=== PATIENT | male | born 1950 | race Caucasian/White ===

== ENCOUNTER 2022-11-19 11:12 | Inpatient (IN) | payer MEDICARE, MEDICAID ==
[2022-11-19 12:47] LABS: BASOPHILS ABSOLUTE AUTO 0.02 K/mm3 (0.01-0.08); BASOPHILS PERCENT AUTO 0.2 % (0.1-1.2); EOSINOPHILS ABSOLUTE AUTO 0.14 K/mm3 (0.04-0.54); EOSINOPHILS PERCENT AUTO 1.3 (0.8-7.0); HEMATOCRIT 44.6 % (40.1-51.0); HEMOGLOBIN 15.1 gm/dl (13.7-17.5); IMMATURE GRAN ABSOLUTE AUTO 0.03 K/mm3 (0.00-0.10); IMMATURE GRAN PERCENT AUTO 0.3 % (<=1.0); LYMPHOCYTES ABSOLUTE AUTO 1.14 K/mm3 (1.32-3.57); LYMPHOCYTES PERCENT AUTO 10.6 % (21.8-53.1); MEAN CORPUSCULAR HEMOGLOBIN 31.8 pg (25.7-32.2); MEAN CORPUSCULAR HGB CONC 33.9 g/dl (32.2-35.5); MEAN CORPUSCULAR VOLUME 93.9 fl (79.0-92.2); MEAN PLATELET VOLUME 11.1 fl (9.4-12.3); MONOCYTES ABSOLUTE AUTO 0.84 K/mm3 (0.30-0.82); MONOCYTES PERCENT AUTO 7.8 % (5.3-12.2); NEUTROPHILS ABSOLUTE AUTO 8.54 K/mm3 (1.78-5.38); NEUTROPHILS PERCENT AUTO 79.8 % (34.0-67.9); PLATELET COUNT,PLT 295 K/mm3 (163-337); RED BLOOD CELL COUNT 4.75 M/mm3 (4.63-6.08); WHITE BLOOD CELL COUNT,WBC 10.71 K/mm3 (4.23-9.07)
[2022-11-19 13:19] LABS: A/G RATIO 0.9 (1-2); ACETAMINOPHEN 1 ug/mL (10-30); ALANINE AMINOTRANSFERASE,ALT 29 U/L (16-63); ALKALINE PHOSPHATASE 61 U/L (46-116); ANION GAP 13.1 (5-15); ASPARTATE AMNIOTRANSFERASE,AST 16 U/L (15-37); BILIRUBIN TOTAL 0.5 mg/dL (0.2-1.0); BLOOD UREA NITROGEN,BUN 23 mg/dL (7-18); BUN/CREATININE RATIO 15.3 (14-18); CALCIUM 9.1 mg/dL (8.5-10.1); CARBON DIOXIDE,CO2 28 mEq/L (21-32); CHLORIDE,CL 104 mEq/L (98-107); CREATININE 1.5 mg/dL (0.7-1.3); ESTIMATED GFR 49 mL/min (>60); GLUCOSE RANDOM 233 mg/dL (70-99); POTASSIUM,K 3.1 mEq/L (3.5-5.1); PROTEIN TOTAL,TP 6.4 g/dl (6.4-8.2); SODIUM,NA 142 mEq/L (136-145); TSH 0.585 uIU/mL (0.358-3.74)
[2022-11-19 13:31] LABS: BARBITURATE SCREEN,URINE NEGATIVE (CUTOFF=200); BENZODIAZEPINES SCREEN,URINE NEGATIVE (CUTOFF=150); BUPRENORPHINE SCREEN,URINE NEGATIVE (CUTOFF=10); METHADONE SCREEN, URINE NEGATIVE (CUT0FF=200); METHAMPHETAMINES SCREEN, URINE NEGATIVE (CUTOFF=500); OXYCODONE SCREEN,URINE NEGATIVE (CUT0FF=100); PROPOXYPHENE SCREEN,URINE NEGATIVE (CUTOFF=300); THC SCREEN,URINE 20 NG/ML NEGATIVE (CUTOFF=50)
[2022-11-19 13:47] LABS: AMPHETAMINES SCREEN, URINE NEGATIVE (CUTOFF=500)
[2022-11-19] MEDS ORDERED: Potassium Chloride 20 MEQ Tab.ER PO ONE (15:03)
[2022-11-19] MEDS ORDERED: Insulin Regular, Human 100 Units/ML 3 ML Vial SUBCUT STA (15:03)
[2022-11-19] MEDS ORDERED: Cyclobenzaprine 10 MG Tab PO ONE (20:00)
[2022-11-19 20:49] LABS: CORONAVIRUS COVID-19 NAA NEGATIVE (NEGATIVE); INFLUENZA A NAA NEGATIVE (NEGATIVE); RESPIRATORY SYNCYTIAL VIR NAA NEGATIVE (NEGATIVE)
[2022-11-19] MEDS ORDERED: LORazepam 1 MG Tab PO ONE (22:51)
[2022-11-20] MEDS ORDERED: metFORMIN 500 MG Tab PO SCH (07:00)
[2022-11-20] MEDS ORDERED: Metoprolol Tartrate 50 MG Tab PO ONE (08:00)
[2022-11-20] MEDS: amLODIPine 5 MG Tab PO SCH (10:19)
[2022-11-20] MEDS: glipiZIDE 5 MG Tab PO SCH ×2 (10:19→21:30)
[2022-11-20] MEDS: Tamsulosin 0.4 MG Cap.ER PO SCH ×2 (10:20→13:00)
[2022-11-20] MEDS: Furosemide 40 MG Tab PO SCH (10:20)
[2022-11-20] MEDS: Pantoprazole 40 MG Tab.CR PO SCH ×2 (10:22→13:01)
[2022-11-20] MEDS ORDERED: Metoprolol Tartrate 100 MG Tab PO ONE (11:30)
[2022-11-20] MEDS: metFORMIN 500 MG Tab PO SCH ×2 (11:32→17:01)
[2022-11-20] MEDS ORDERED: Orphenadrine 100 MG Tab.ER PO STA (16:45)
[2022-11-20] MEDS: atorvaSTATin 40 MG Tab PO SCH (21:28)
[2022-11-20] MEDS: QUEtiapine 100 MG Tab PO SCH (22:37)
[2022-11-20] MEDS: Topiramate 25 MG Tab PO SCH (22:37)
[2022-11-21] MEDS ORDERED: Acetaminophen 325 MG Tab PO ONE (05:05)
[2022-11-21] MEDS ORDERED: Ondansetron 4 MG Tab.DIS PO ONE (05:59)
[2022-11-21] MEDS: Furosemide 40 MG Tab PO SCH (07:24)
[2022-11-21] MEDS: Pantoprazole 40 MG Tab.CR PO SCH (07:24)
[2022-11-21] MEDS: amLODIPine 5 MG Tab PO SCH (07:24)
[2022-11-21] MEDS: Topiramate 25 MG Tab PO SCH ×2 (07:24→22:12)
[2022-11-21] MEDS: glipiZIDE 5 MG Tab PO SCH ×2 (07:25→22:12)
[2022-11-21] MEDS: metFORMIN 500 MG Tab PO SCH ×2 (07:25→18:03)
[2022-11-21] MEDS: Tamsulosin 0.4 MG Cap.ER PO SCH (10:45)
[2022-11-21] MEDS: QUEtiapine 100 MG Tab PO SCH (22:11)
[2022-11-21] MEDS: atorvaSTATin 40 MG Tab PO SCH (22:12)
[2022-11-22] MEDS: metFORMIN 500 MG Tab PO SCH ×2 (08:36→18:11)
[2022-11-22] MEDS: glipiZIDE 5 MG Tab PO SCH ×2 (08:36→21:14)
[2022-11-22] MEDS: Pantoprazole 40 MG Tab.CR PO SCH (08:37)
[2022-11-22] MEDS: amLODIPine 5 MG Tab PO SCH (08:37)
[2022-11-22] MEDS: Tamsulosin 0.4 MG Cap.ER PO SCH (08:38)
[2022-11-22] MEDS: Topiramate 25 MG Tab PO SCH ×2 (08:38→21:15)
[2022-11-22] MEDS: Furosemide 40 MG Tab PO SCH (08:38)
[2022-11-22] MEDS: QUEtiapine 100 MG Tab PO SCH (21:15)
[2022-11-22] MEDS: atorvaSTATin 40 MG Tab PO SCH (21:15)
[2022-11-23] MEDS: metFORMIN 500 MG Tab PO SCH ×2 (08:26→17:42)
[2022-11-23] MEDS: glipiZIDE 5 MG Tab PO SCH ×2 (08:27→21:09)
[2022-11-23] MEDS: Furosemide 40 MG Tab PO SCH (08:27)
[2022-11-23] MEDS: Pantoprazole 40 MG Tab.CR PO SCH (08:28)
[2022-11-23] MEDS: amLODIPine 5 MG Tab PO SCH (08:29)
[2022-11-23] MEDS: Topiramate 25 MG Tab PO SCH ×2 (08:30→21:09)
[2022-11-23] MEDS: Tamsulosin 0.4 MG Cap.ER PO SCH (09:23)
[2022-11-23] MEDS ORDERED: Acetaminophen 325 MG Tab PO ONE (11:13)
[2022-11-23] MEDS: atorvaSTATin 40 MG Tab PO SCH (21:09)
[2022-11-23] MEDS: QUEtiapine 100 MG Tab PO SCH (21:09)
[2022-11-24] MEDS: metFORMIN 500 MG Tab PO SCH ×3 (07:27→20:24)
[2022-11-24] MEDS: glipiZIDE 5 MG Tab.ER PO SCH ×2 (07:53→20:24)
[2022-11-24] MEDS: atorvaSTATin 40 MG Tab PO SCH (07:53)
[2022-11-24] MEDS: Furosemide 40 MG Tab PO SCH ×2 (07:53)
[2022-11-24] MEDS: Tamsulosin 0.4 MG Cap.ER PO SCH (07:53)
[2022-11-24] MEDS: Metoprolol Tartrate 100 MG Tab PO SCH (07:54)
[2022-11-24] MEDS: amLODIPine 5 MG Tab PO SCH (07:54)
[2022-11-24] MEDS: Pantoprazole 40 MG Tab.CR PO SCH ×2 (07:54)
[2022-11-24] MEDS: Topiramate 25 MG Tab PO SCH ×2 (08:51→20:24)
[2022-11-24] MEDS ORDERED: Acetaminophen 650 MG Supp RECTAL PRN (12:27)
[2022-11-24] MEDS: Insulin Regular, Human 100 Units/ML 3 ML Vial SUBCUT SCH ×2 (13:58→18:16)
[2022-11-24] MEDS: Heparin Sodium 5,000 Units/ML Vial SUBCUT SCH ×2 (14:08→20:24)
[2022-11-24] MEDS: QUEtiapine 100 MG Tab PO SCH (20:24)
[2022-11-24] MEDS: oxyCODONE 5 MG Tab PO PRN (20:24)
[2022-11-25] MEDS: Heparin Sodium 5,000 Units/ML Vial SUBCUT SCH ×3 (05:08→20:12)
[2022-11-25] MEDS: atorvaSTATin 40 MG Tab PO SCH (08:19)
[2022-11-25] MEDS: amLODIPine 5 MG Tab PO SCH (08:19)
[2022-11-25] MEDS: Metoprolol Tartrate 100 MG Tab PO SCH (08:19)
[2022-11-25] MEDS: Furosemide 40 MG Tab PO SCH (08:19)
[2022-11-25] MEDS: metFORMIN 500 MG Tab PO SCH ×2 (08:20→20:30)
[2022-11-25] MEDS: glipiZIDE 5 MG Tab.ER PO SCH ×2 (08:20→20:30)
[2022-11-25] MEDS: Topiramate 25 MG Tab PO SCH ×2 (08:20→20:11)
[2022-11-25] MEDS: Tamsulosin 0.4 MG Cap.ER PO SCH (08:20)
[2022-11-25] MEDS: Pantoprazole 40 MG Tab.CR PO SCH (08:21)
[2022-11-25] MEDS: Insulin Regular, Human 100 Units/ML 3 ML Vial SUBCUT SCH ×3 (08:24→18:00)
[2022-11-25] MEDS: QUEtiapine 100 MG Tab PO SCH (20:11)
[2022-11-26] MEDS: Heparin Sodium 5,000 Units/ML Vial SUBCUT SCH ×3 (05:11→21:29)
[2022-11-26] MEDS: Insulin Regular, Human 100 Units/ML 3 ML Vial SUBCUT SCH ×3 (08:42→18:05)
[2022-11-26] MEDS: Metoprolol Tartrate 100 MG Tab PO SCH (09:35)
[2022-11-26] MEDS: Topiramate 25 MG Tab PO SCH ×2 (09:35→21:28)
[2022-11-26] MEDS: Tamsulosin 0.4 MG Cap.ER PO SCH (09:35)
[2022-11-26] MEDS: glipiZIDE 5 MG Tab.ER PO SCH ×2 (09:36→21:28)
[2022-11-26] MEDS: Pantoprazole 40 MG Tab.CR PO SCH (09:36)
[2022-11-26] MEDS: amLODIPine 5 MG Tab PO SCH (09:36)
[2022-11-26] MEDS: metFORMIN 500 MG Tab PO SCH ×2 (09:36→21:29)
[2022-11-26] MEDS: Furosemide 40 MG Tab PO SCH (09:37)
[2022-11-26] MEDS: atorvaSTATin 40 MG Tab PO SCH (09:37)
[2022-11-26] MEDS: QUEtiapine 100 MG Tab PO SCH (21:27)
[2022-11-27] MEDS: Heparin Sodium 5,000 Units/ML Vial SUBCUT SCH ×3 (05:25→20:05)
[2022-11-27] MEDS: amLODIPine 5 MG Tab PO SCH (09:27)
[2022-11-27] MEDS: glipiZIDE 5 MG Tab.ER PO SCH ×2 (09:27→20:04)
[2022-11-27] MEDS: Metoprolol Tartrate 100 MG Tab PO SCH (09:27)
[2022-11-27] MEDS: metFORMIN 500 MG Tab PO SCH ×2 (09:27→20:04)
[2022-11-27] MEDS: Furosemide 40 MG Tab PO SCH (09:27)
[2022-11-27] MEDS: Topiramate 25 MG Tab PO SCH ×2 (09:28→20:04)
[2022-11-27] MEDS: Pantoprazole 40 MG Tab.CR PO SCH (09:28)
[2022-11-27] MEDS: Insulin Regular, Human 100 Units/ML 3 ML Vial SUBCUT SCH ×3 (09:28→18:17)
[2022-11-27] MEDS: atorvaSTATin 40 MG Tab PO SCH (09:28)
[2022-11-27] MEDS: Tamsulosin 0.4 MG Cap.ER PO SCH (09:28)
[2022-11-27] MEDS ORDERED: Docusate Sodium 100 MG Cap PO PRN (12:53)
[2022-11-27] MEDS: Polyethylene Glycol 3350 Powder 17 GM Packet PO PRN (18:17)
[2022-11-27] MEDS: QUEtiapine 100 MG Tab PO SCH (20:04)
[2022-11-28] MEDS: Heparin Sodium 5,000 Units/ML Vial SUBCUT SCH ×3 (04:15→20:47)
[2022-11-28] MEDS: Topiramate 25 MG Tab PO SCH ×2 (08:42→20:47)
[2022-11-28] MEDS: Polyethylene Glycol 3350 Powder 17 GM Packet PO PRN (08:42)
[2022-11-28] MEDS: metFORMIN 500 MG Tab PO SCH ×2 (08:42→20:47)
[2022-11-28] MEDS: Pantoprazole 40 MG Tab.CR PO SCH (08:43)
[2022-11-28] MEDS: Metoprolol Tartrate 100 MG Tab PO SCH (08:43)
[2022-11-28] MEDS: amLODIPine 5 MG Tab PO SCH (08:43)
[2022-11-28] MEDS: atorvaSTATin 40 MG Tab PO SCH (08:44)
[2022-11-28] MEDS: glipiZIDE 5 MG Tab.ER PO SCH ×2 (08:44→20:47)
[2022-11-28] MEDS: Furosemide 40 MG Tab PO SCH (08:44)
[2022-11-28] MEDS: Tamsulosin 0.4 MG Cap.ER PO SCH (08:45)
[2022-11-28] MEDS: Insulin Regular, Human 100 Units/ML 3 ML Vial SUBCUT SCH ×3 (09:28→19:06)
[2022-11-28] MEDS: QUEtiapine 100 MG Tab PO SCH (20:47)
[2022-11-29] MEDS: Heparin Sodium 5,000 Units/ML Vial SUBCUT SCH ×4 (03:50→20:22)
[2022-11-29] MEDS: oxyCODONE 5 MG Tab PO PRN (08:24)
[2022-11-29] MEDS: glipiZIDE 5 MG Tab.ER PO SCH ×2 (08:24→20:23)
[2022-11-29] MEDS: Tamsulosin 0.4 MG Cap.ER PO SCH (08:25)
[2022-11-29] MEDS: Pantoprazole 40 MG Tab.CR PO SCH (08:25)
[2022-11-29] MEDS: metFORMIN 500 MG Tab PO SCH ×2 (08:25→20:23)
[2022-11-29] MEDS: Furosemide 40 MG Tab PO SCH (08:25)
[2022-11-29] MEDS: Topiramate 25 MG Tab PO SCH ×2 (08:26→20:23)
[2022-11-29] MEDS: Metoprolol Tartrate 100 MG Tab PO SCH (08:26)
[2022-11-29] MEDS: atorvaSTATin 40 MG Tab PO SCH (08:27)
[2022-11-29] MEDS: Insulin Regular, Human 100 Units/ML 3 ML Vial SUBCUT SCH ×3 (08:27→18:50)
[2022-11-29] MEDS: amLODIPine 5 MG Tab PO SCH (08:27)
[2022-11-29] MEDS: QUEtiapine 100 MG Tab PO SCH (20:23)
[2022-11-30] MEDS: Heparin Sodium 5,000 Units/ML Vial SUBCUT SCH ×4 (04:40→20:30)
[2022-11-30] MEDS: Furosemide 40 MG Tab PO SCH (08:29)
[2022-11-30] MEDS: Pantoprazole 40 MG Tab.CR PO SCH (08:29)
[2022-11-30] MEDS: amLODIPine 5 MG Tab PO SCH (08:29)
[2022-11-30] MEDS: Topiramate 25 MG Tab PO SCH ×3 (08:30→20:32)
[2022-11-30] MEDS: glipiZIDE 5 MG Tab.ER PO SCH ×3 (08:30→20:30)
[2022-11-30] MEDS: Metoprolol Tartrate 100 MG Tab PO SCH (08:31)
[2022-11-30] MEDS: metFORMIN 500 MG Tab PO SCH ×3 (08:32→20:30)
[2022-11-30] MEDS: atorvaSTATin 40 MG Tab PO SCH (08:32)
[2022-11-30] MEDS: Insulin Regular, Human 100 Units/ML 3 ML Vial SUBCUT SCH ×3 (08:33→18:00)
[2022-11-30] MEDS: Tamsulosin 0.4 MG Cap.ER PO SCH (08:33)
[2022-11-30] MEDS: QUEtiapine 100 MG Tab PO SCH ×2 (19:47→20:31)
[2022-12-01] MEDS: Heparin Sodium 5,000 Units/ML Vial SUBCUT SCH ×3 (06:30→21:05)
[2022-12-01] MEDS: glipiZIDE 5 MG Tab.ER PO SCH ×2 (08:52→21:05)
[2022-12-01] MEDS: Topiramate 25 MG Tab PO SCH ×2 (08:52→21:20)
[2022-12-01] MEDS: atorvaSTATin 40 MG Tab PO SCH (08:53)
[2022-12-01] MEDS: Tamsulosin 0.4 MG Cap.ER PO SCH (08:53)
[2022-12-01] MEDS: amLODIPine 5 MG Tab PO SCH (08:53)
[2022-12-01] MEDS: Pantoprazole 40 MG Tab.CR PO SCH (08:53)
[2022-12-01] MEDS: metFORMIN 500 MG Tab PO SCH ×2 (08:53→21:04)
[2022-12-01] MEDS: Metoprolol Tartrate 100 MG Tab PO SCH (08:53)
[2022-12-01] MEDS: Furosemide 40 MG Tab PO SCH (08:53)
[2022-12-01] MEDS: Insulin Regular, Human 100 Units/ML 3 ML Vial SUBCUT SCH ×3 (09:02→19:40)
[2022-12-01] MEDS ORDERED: Bisacodyl 10 MG Supp RECTAL PRN (09:47)
[2022-12-01] MEDS: Docusate Sodium 100 MG Cap PO SCH (21:04)
[2022-12-01] MEDS: QUEtiapine 100 MG Tab PO SCH (21:05)
[2022-12-02] MEDS: Heparin Sodium 5,000 Units/ML Vial SUBCUT SCH ×3 (05:41→20:30)
[2022-12-02] MEDS: atorvaSTATin 40 MG Tab PO SCH (09:53)
[2022-12-02] MEDS: Metoprolol Tartrate 100 MG Tab PO SCH (09:53)
[2022-12-02] MEDS: Docusate Sodium 100 MG Cap PO SCH ×2 (09:53→20:30)
[2022-12-02] MEDS: Topiramate 25 MG Tab PO SCH ×2 (09:53→20:30)
[2022-12-02] MEDS: Tamsulosin 0.4 MG Cap.ER PO SCH (09:53)
[2022-12-02] MEDS: amLODIPine 5 MG Tab PO SCH (09:53)
[2022-12-02] MEDS: metFORMIN 500 MG Tab PO SCH ×2 (09:53→20:30)
[2022-12-02] MEDS: glipiZIDE 5 MG Tab.ER PO SCH ×2 (09:54→20:30)
[2022-12-02] MEDS: Furosemide 40 MG Tab PO SCH (09:54)
[2022-12-02] MEDS: Pantoprazole 40 MG Tab.CR PO SCH (09:54)
[2022-12-02] MEDS: Insulin Regular, Human 100 Units/ML 3 ML Vial SUBCUT SCH ×3 (10:19→19:02)
[2022-12-02] MEDS: QUEtiapine 100 MG Tab PO SCH (20:30)
[2022-12-03] MEDS: Heparin Sodium 5,000 Units/ML Vial SUBCUT SCH ×3 (04:37→20:11)
[2022-12-03] MEDS: atorvaSTATin 40 MG Tab PO SCH (08:51)
[2022-12-03] MEDS: metFORMIN 500 MG Tab PO SCH ×2 (08:51→20:12)
[2022-12-03] MEDS: Topiramate 25 MG Tab PO SCH ×2 (08:51→20:12)
[2022-12-03] MEDS: amLODIPine 5 MG Tab PO SCH (08:51)
[2022-12-03] MEDS: Docusate Sodium 100 MG Cap PO SCH ×2 (08:51→20:12)
[2022-12-03] MEDS: Pantoprazole 40 MG Tab.CR PO SCH (08:51)
[2022-12-03] MEDS: Insulin Regular, Human 100 Units/ML 3 ML Vial SUBCUT SCH ×3 (08:52→18:27)
[2022-12-03] MEDS: Furosemide 40 MG Tab PO SCH (08:52)
[2022-12-03] MEDS: glipiZIDE 5 MG Tab.ER PO SCH ×2 (08:52→20:12)
[2022-12-03] MEDS: Metoprolol Tartrate 100 MG Tab PO SCH (08:52)
[2022-12-03] MEDS: Tamsulosin 0.4 MG Cap.ER PO SCH (08:52)
[2022-12-03] MEDS: QUEtiapine 100 MG Tab PO SCH (20:12)
[2022-12-04] MEDS: Heparin Sodium 5,000 Units/ML Vial SUBCUT SCH ×3 (05:27→20:46)
[2022-12-04] MEDS: Insulin Regular, Human 100 Units/ML 3 ML Vial SUBCUT SCH ×3 (08:52→20:12)
[2022-12-04] MEDS: glipiZIDE 5 MG Tab.ER PO SCH ×2 (08:53→20:46)
[2022-12-04] MEDS: Pantoprazole 40 MG Tab.CR PO SCH (08:53)
[2022-12-04] MEDS: atorvaSTATin 40 MG Tab PO SCH (08:53)
[2022-12-04] MEDS: Topiramate 25 MG Tab PO SCH ×2 (08:53→20:45)
[2022-12-04] MEDS: Docusate Sodium 100 MG Cap PO SCH ×2 (08:53→20:46)
[2022-12-04] MEDS: metFORMIN 500 MG Tab PO SCH ×2 (08:54→20:45)
[2022-12-04] MEDS: Furosemide 40 MG Tab PO SCH (08:54)
[2022-12-04] MEDS: Tamsulosin 0.4 MG Cap.ER PO SCH (08:54)
[2022-12-04] MEDS: Metoprolol Tartrate 100 MG Tab PO SCH (08:54)
[2022-12-04] MEDS: amLODIPine 5 MG Tab PO SCH (08:56)
[2022-12-04] MEDS: QUEtiapine 100 MG Tab PO SCH (20:45)
[2022-12-05] MEDS: Heparin Sodium 5,000 Units/ML Vial SUBCUT SCH ×3 (05:30→21:08)
[2022-12-05] MEDS: Topiramate 25 MG Tab PO SCH ×2 (08:00→21:08)
[2022-12-05] MEDS: Tamsulosin 0.4 MG Cap.ER PO SCH (08:00)
[2022-12-05] MEDS: amLODIPine 5 MG Tab PO SCH (08:00)
[2022-12-05] MEDS: Pantoprazole 40 MG Tab.CR PO SCH (08:00)
[2022-12-05] MEDS: atorvaSTATin 40 MG Tab PO SCH (08:01)
[2022-12-05] MEDS: Metoprolol Tartrate 100 MG Tab PO SCH (08:01)
[2022-12-05] MEDS: glipiZIDE 5 MG Tab.ER PO SCH ×2 (08:01→21:08)
[2022-12-05] MEDS: metFORMIN 500 MG Tab PO SCH ×2 (08:01→21:08)
[2022-12-05] MEDS: Furosemide 40 MG Tab PO SCH (08:02)
[2022-12-05] MEDS: Docusate Sodium 100 MG Cap PO SCH ×2 (08:02→21:08)
[2022-12-05] MEDS: Insulin Regular, Human 100 Units/ML 3 ML Vial SUBCUT SCH ×3 (08:03→18:18)
[2022-12-05 09:52] LABS: BASOPHILS ABSOLUTE AUTO 0.03 K/mm3 (0.01-0.08); BASOPHILS PERCENT AUTO 0.3 % (0.1-1.2); EOSINOPHILS ABSOLUTE AUTO 0.14 K/mm3 (0.04-0.54); EOSINOPHILS PERCENT AUTO 1.4 (0.8-7.0); HEMATOCRIT 45.1 % (40.1-51.0); HEMOGLOBIN 14.8 gm/dl (13.7-17.5); IMMATURE GRAN ABSOLUTE AUTO 0.03 K/mm3 (0.00-0.10); IMMATURE GRAN PERCENT AUTO 0.3 % (<=1.0); LYMPHOCYTES ABSOLUTE AUTO 0.99 K/mm3 (1.32-3.57); LYMPHOCYTES PERCENT AUTO 9.6 % (21.8-53.1); MEAN CORPUSCULAR HEMOGLOBIN 31.8 pg (25.7-32.2); MEAN CORPUSCULAR HGB CONC 32.8 g/dl (32.2-35.5); MEAN PLATELET VOLUME 10.6 fl (9.4-12.3); MONOCYTES ABSOLUTE AUTO 0.64 K/mm3 (0.30-0.82); MONOCYTES PERCENT AUTO 6.2 % (5.3-12.2); NEUTROPHILS ABSOLUTE AUTO 8.48 K/mm3 (1.78-5.38); NEUTROPHILS PERCENT AUTO 82.2 % (34.0-67.9); PLATELET COUNT,PLT 348 K/mm3 (163-337); RED BLOOD CELL COUNT 4.65 M/mm3 (4.63-6.08); WHITE BLOOD CELL COUNT,WBC 10.31 K/mm3 (4.23-9.07)
[2022-12-05 10:28] LABS: ANION GAP 13.7 (5-15); BUN/CREATININE RATIO 20.7 (14-18); C-REACTIVE PROTEIN 0.2 mg/dL (<1.0); CALCIUM 9.6 mg/dL (8.5-10.1); CREATININE 1.5 mg/dL (0.7-1.3); EST CRCL DRUG DOSING (CG) 40.39 mL/min; POTASSIUM,K 4.7 mEq/L (3.5-5.1)
[2022-12-05] MEDS: QUEtiapine 100 MG Tab PO SCH (21:08)
[2022-12-06] MEDS: Heparin Sodium 5,000 Units/ML Vial SUBCUT SCH ×3 (05:40→21:11)
[2022-12-06] MEDS: atorvaSTATin 40 MG Tab PO SCH (09:09)
[2022-12-06] MEDS: Tamsulosin 0.4 MG Cap.ER PO SCH (09:10)
[2022-12-06] MEDS: amLODIPine 5 MG Tab PO SCH (09:10)
[2022-12-06] MEDS: Furosemide 40 MG Tab PO SCH (09:10)
[2022-12-06] MEDS: metFORMIN 500 MG Tab PO SCH ×2 (09:10→21:09)
[2022-12-06] MEDS: Topiramate 25 MG Tab PO SCH ×2 (09:10→21:09)
[2022-12-06] MEDS: glipiZIDE 5 MG Tab.ER PO SCH ×2 (09:10→21:08)
[2022-12-06] MEDS: Metoprolol Tartrate 100 MG Tab PO SCH (09:10)
[2022-12-06] MEDS: Pantoprazole 40 MG Tab.CR PO SCH (09:10)
[2022-12-06] MEDS: Docusate Sodium 100 MG Cap PO SCH ×2 (09:11→21:09)
[2022-12-06] MEDS: QUEtiapine 100 MG Tab PO SCH (21:09)
[2022-12-07] MEDS: Heparin Sodium 5,000 Units/ML Vial SUBCUT SCH ×3 (06:09→21:27)
[2022-12-07] MEDS: atorvaSTATin 40 MG Tab PO SCH (08:06)
[2022-12-07] MEDS: Topiramate 25 MG Tab PO SCH ×2 (08:06→21:27)
[2022-12-07] MEDS: Tamsulosin 0.4 MG Cap.ER PO SCH (08:06)
[2022-12-07] MEDS: metFORMIN 500 MG Tab PO SCH ×2 (08:07→21:27)
[2022-12-07] MEDS: Furosemide 40 MG Tab PO SCH (08:07)
[2022-12-07] MEDS: Docusate Sodium 100 MG Cap PO SCH ×2 (08:07→21:26)
[2022-12-07] MEDS: glipiZIDE 5 MG Tab.ER PO SCH ×2 (08:07→21:27)
[2022-12-07] MEDS: Metoprolol Tartrate 100 MG Tab PO SCH (08:08)
[2022-12-07] MEDS: Pantoprazole 40 MG Tab.CR PO SCH (08:08)
[2022-12-07] MEDS: amLODIPine 5 MG Tab PO SCH (08:10)
[2022-12-07] MEDS: QUEtiapine 100 MG Tab PO SCH (21:27)
[2022-12-08] MEDS: Heparin Sodium 5,000 Units/ML Vial SUBCUT SCH ×3 (06:36→20:32)
[2022-12-08] MEDS: Acetaminophen 325 MG Tab PO PRN (09:39)
[2022-12-08] MEDS: Topiramate 25 MG Tab PO SCH ×2 (09:39→20:34)
[2022-12-08] MEDS: amLODIPine 5 MG Tab PO SCH (09:40)
[2022-12-08] MEDS: atorvaSTATin 40 MG Tab PO SCH (09:41)
[2022-12-08] MEDS: Tamsulosin 0.4 MG Cap.ER PO SCH (09:41)
[2022-12-08] MEDS: metFORMIN 500 MG Tab PO SCH ×2 (09:41→20:33)
[2022-12-08] MEDS: Furosemide 40 MG Tab PO SCH (09:42)
[2022-12-08] MEDS: Metoprolol Tartrate 100 MG Tab PO SCH (09:42)
[2022-12-08] MEDS: Docusate Sodium 100 MG Cap PO SCH ×2 (09:42→20:34)
[2022-12-08] MEDS: glipiZIDE 5 MG Tab.ER PO SCH ×2 (09:43→20:34)
[2022-12-08] MEDS: Pantoprazole 40 MG Tab.CR PO SCH (09:43)
[2022-12-08] MEDS: QUEtiapine 100 MG Tab PO SCH (20:33)
[2022-12-09] MEDS: Heparin Sodium 5,000 Units/ML Vial SUBCUT SCH ×3 (04:52→20:21)
[2022-12-09] MEDS: Topiramate 25 MG Tab PO SCH ×2 (09:13→20:22)
[2022-12-09] MEDS: Pantoprazole 40 MG Tab.CR PO SCH (09:13)
[2022-12-09] MEDS: Tamsulosin 0.4 MG Cap.ER PO SCH (09:14)
[2022-12-09] MEDS: amLODIPine 5 MG Tab PO SCH (09:15)
[2022-12-09] MEDS: Metoprolol Tartrate 100 MG Tab PO SCH (09:15)
[2022-12-09] MEDS: Furosemide 40 MG Tab PO SCH (09:15)
[2022-12-09] MEDS: metFORMIN 500 MG Tab PO SCH ×2 (09:16→20:21)
[2022-12-09] MEDS: glipiZIDE 5 MG Tab.ER PO SCH ×2 (09:16→20:22)
[2022-12-09] MEDS: Docusate Sodium 100 MG Cap PO SCH ×2 (09:16→20:21)
[2022-12-09] MEDS: atorvaSTATin 40 MG Tab PO SCH (09:16)
[2022-12-09] MEDS: QUEtiapine 100 MG Tab PO SCH (20:21)
[2022-12-10] MEDS: Heparin Sodium 5,000 Units/ML Vial SUBCUT SCH ×3 (06:25→20:49)
[2022-12-10] MEDS: Topiramate 25 MG Tab PO SCH ×2 (09:28→20:48)
[2022-12-10] MEDS: Tamsulosin 0.4 MG Cap.ER PO SCH (09:28)
[2022-12-10] MEDS: metFORMIN 500 MG Tab PO SCH ×2 (09:28→20:48)
[2022-12-10] MEDS: Furosemide 40 MG Tab PO SCH (09:28)
[2022-12-10] MEDS: Metoprolol Tartrate 100 MG Tab PO SCH (09:29)
[2022-12-10] MEDS: atorvaSTATin 40 MG Tab PO SCH (09:29)
[2022-12-10] MEDS: glipiZIDE 5 MG Tab.ER PO SCH ×2 (09:29→20:48)
[2022-12-10] MEDS: amLODIPine 5 MG Tab PO SCH (09:29)
[2022-12-10] MEDS: Pantoprazole 40 MG Tab.CR PO SCH (09:30)
[2022-12-10] MEDS: Docusate Sodium 100 MG Cap PO SCH ×2 (09:30→20:49)
[2022-12-10] MEDS: QUEtiapine 100 MG Tab PO SCH (20:48)
[2022-12-11] MEDS: Heparin Sodium 5,000 Units/ML Vial SUBCUT SCH ×3 (06:07→20:42)
[2022-12-11] MEDS: Metoprolol Tartrate 100 MG Tab PO SCH (08:27)
[2022-12-11] MEDS: metFORMIN 500 MG Tab PO SCH ×2 (08:27→20:41)
[2022-12-11] MEDS: amLODIPine 5 MG Tab PO SCH (08:28)
[2022-12-11] MEDS: Furosemide 40 MG Tab PO SCH (08:28)
[2022-12-11] MEDS: atorvaSTATin 40 MG Tab PO SCH (08:28)
[2022-12-11] MEDS: Tamsulosin 0.4 MG Cap.ER PO SCH (08:28)
[2022-12-11] MEDS: Pantoprazole 40 MG Tab.CR PO SCH (08:28)
[2022-12-11] MEDS: glipiZIDE 5 MG Tab.ER PO SCH ×2 (08:28→20:41)
[2022-12-11] MEDS: Docusate Sodium 100 MG Cap PO SCH ×2 (08:28→20:42)
[2022-12-11] MEDS: Topiramate 25 MG Tab PO SCH ×2 (08:28→20:41)
[2022-12-11] MEDS: QUEtiapine 100 MG Tab PO SCH (20:42)
[2022-12-12] MEDS: Heparin Sodium 5,000 Units/ML Vial SUBCUT SCH ×3 (06:39→21:25)
[2022-12-12] MEDS: Furosemide 40 MG Tab PO SCH (08:18)
[2022-12-12] MEDS: atorvaSTATin 40 MG Tab PO SCH (08:18)
[2022-12-12] MEDS: metFORMIN 500 MG Tab PO SCH ×2 (08:18→21:25)
[2022-12-12] MEDS: Pantoprazole 40 MG Tab.CR PO SCH (08:19)
[2022-12-12] MEDS: glipiZIDE 5 MG Tab.ER PO SCH ×2 (08:19→21:25)
[2022-12-12] MEDS: Metoprolol Tartrate 100 MG Tab PO SCH (08:19)
[2022-12-12] MEDS: Docusate Sodium 100 MG Cap PO SCH ×2 (08:19→21:24)
[2022-12-12] MEDS: Topiramate 25 MG Tab PO SCH ×2 (08:19→21:25)
[2022-12-12] MEDS: Tamsulosin 0.4 MG Cap.ER PO SCH (08:19)
[2022-12-12] MEDS: amLODIPine 5 MG Tab PO SCH (08:19)
[2022-12-12] MEDS: QUEtiapine 100 MG Tab PO SCH (21:25)
[2022-12-13] MEDS: Heparin Sodium 5,000 Units/ML Vial SUBCUT SCH ×3 (05:48→21:46)
[2022-12-13] MEDS: amLODIPine 5 MG Tab PO SCH (09:40)
[2022-12-13] MEDS: Topiramate 25 MG Tab PO SCH ×2 (09:40→21:45)
[2022-12-13] MEDS: Pantoprazole 40 MG Tab.CR PO SCH (09:40)
[2022-12-13] MEDS: atorvaSTATin 40 MG Tab PO SCH (09:40)
[2022-12-13] MEDS: metFORMIN 500 MG Tab PO SCH ×2 (09:40→21:45)
[2022-12-13] MEDS: Furosemide 40 MG Tab PO SCH (09:40)
[2022-12-13] MEDS: Metoprolol Tartrate 100 MG Tab PO SCH (09:40)
[2022-12-13] MEDS: Tamsulosin 0.4 MG Cap.ER PO SCH (09:40)
[2022-12-13] MEDS: glipiZIDE 5 MG Tab.ER PO SCH ×2 (09:41→21:45)
[2022-12-13] MEDS: Docusate Sodium 100 MG Cap PO SCH ×2 (09:41→21:45)
[2022-12-13] MEDS: QUEtiapine 100 MG Tab PO SCH (21:45)
[2022-12-14] MEDS: Heparin Sodium 5,000 Units/ML Vial SUBCUT SCH ×3 (05:59→20:47)
[2022-12-14] MEDS: Pantoprazole 40 MG Tab.CR PO SCH (09:32)
[2022-12-14] MEDS: glipiZIDE 5 MG Tab.ER PO SCH ×2 (09:32→20:46)
[2022-12-14] MEDS: Tamsulosin 0.4 MG Cap.ER PO SCH (09:32)
[2022-12-14] MEDS: Topiramate 25 MG Tab PO SCH ×2 (09:33→20:45)
[2022-12-14] MEDS: Docusate Sodium 100 MG Cap PO SCH ×2 (09:33→20:44)
[2022-12-14] MEDS: Furosemide 40 MG Tab PO SCH (09:33)
[2022-12-14] MEDS: metFORMIN 500 MG Tab PO SCH ×2 (09:33→20:45)
[2022-12-14] MEDS: atorvaSTATin 40 MG Tab PO SCH (09:33)
[2022-12-14] MEDS: amLODIPine 5 MG Tab PO SCH (09:33)
[2022-12-14] MEDS: Metoprolol Tartrate 100 MG Tab PO SCH (09:33)
[2022-12-14] MEDS: Acetaminophen 325 MG Tab PO PRN (14:30)
[2022-12-14] MEDS: QUEtiapine 100 MG Tab PO SCH (20:44)
[2022-12-15] MEDS: Heparin Sodium 5,000 Units/ML Vial SUBCUT SCH ×3 (05:50→20:53)
[2022-12-15] MEDS: Docusate Sodium 100 MG Cap PO SCH ×2 (08:59→20:54)
[2022-12-15] MEDS: Topiramate 25 MG Tab PO SCH ×2 (08:59→20:54)
[2022-12-15] MEDS: atorvaSTATin 40 MG Tab PO SCH (09:00)
[2022-12-15] MEDS: Furosemide 40 MG Tab PO SCH (09:00)
[2022-12-15] MEDS: glipiZIDE 5 MG Tab.ER PO SCH ×2 (09:00→20:53)
[2022-12-15] MEDS: Pantoprazole 40 MG Tab.CR PO SCH (09:00)
[2022-12-15] MEDS: Metoprolol Tartrate 100 MG Tab PO SCH (09:00)
[2022-12-15] MEDS: amLODIPine 5 MG Tab PO SCH (09:00)
[2022-12-15] MEDS: metFORMIN 500 MG Tab PO SCH ×2 (09:01→20:53)
[2022-12-15] MEDS: Tamsulosin 0.4 MG Cap.ER PO SCH (09:01)
[2022-12-15] MEDS: Acetaminophen 325 MG Tab PO PRN (09:06)
[2022-12-15] MEDS: QUEtiapine 100 MG Tab PO SCH (20:53)
[2022-12-16] MEDS: Heparin Sodium 5,000 Units/ML Vial SUBCUT SCH ×3 (05:43→22:22)
[2022-12-16] MEDS: Acetaminophen 325 MG Tab PO PRN (06:59)
[2022-12-16] MEDS: Tamsulosin 0.4 MG Cap.ER PO SCH (09:17)
[2022-12-16] MEDS: Metoprolol Tartrate 100 MG Tab PO SCH (09:19)
[2022-12-16] MEDS: atorvaSTATin 40 MG Tab PO SCH (09:19)
[2022-12-16] MEDS: Docusate Sodium 100 MG Cap PO SCH ×2 (09:20→22:23)
[2022-12-16] MEDS: amLODIPine 5 MG Tab PO SCH (09:20)
[2022-12-16] MEDS: Topiramate 25 MG Tab PO SCH ×2 (09:20→22:23)
[2022-12-16] MEDS: glipiZIDE 5 MG Tab.ER PO SCH ×2 (09:20→22:22)
[2022-12-16] MEDS: Furosemide 40 MG Tab PO SCH (09:21)
[2022-12-16] MEDS: Pantoprazole 40 MG Tab.CR PO SCH (09:21)
[2022-12-16] MEDS: metFORMIN 500 MG Tab PO SCH ×2 (09:21→22:23)
[2022-12-16] MEDS: QUEtiapine 100 MG Tab PO SCH (22:22)
[2022-12-17] MEDS: Heparin Sodium 5,000 Units/ML Vial SUBCUT SCH ×3 (07:55→20:28)
[2022-12-17] MEDS: Metoprolol Tartrate 100 MG Tab PO SCH (08:45)
[2022-12-17] MEDS: glipiZIDE 5 MG Tab.ER PO SCH ×2 (08:45→20:29)
[2022-12-17] MEDS: Pantoprazole 40 MG Tab.CR PO SCH (08:45)
[2022-12-17] MEDS: Docusate Sodium 100 MG Cap PO SCH ×2 (08:45→20:29)
[2022-12-17] MEDS: Furosemide 40 MG Tab PO SCH (08:45)
[2022-12-17] MEDS: atorvaSTATin 40 MG Tab PO SCH (08:49)
[2022-12-17] MEDS: Topiramate 25 MG Tab PO SCH ×2 (08:49→20:29)
[2022-12-17] MEDS: metFORMIN 500 MG Tab PO SCH ×2 (08:49→20:29)
[2022-12-17] MEDS: amLODIPine 5 MG Tab PO SCH (08:49)
[2022-12-17] MEDS: Tamsulosin 0.4 MG Cap.ER PO SCH (08:49)
[2022-12-17] MEDS: QUEtiapine 100 MG Tab PO SCH (20:29)
[2022-12-18] MEDS: Acetaminophen 325 MG Tab PO PRN ×2 (05:32→20:20)
[2022-12-18] MEDS: Heparin Sodium 5,000 Units/ML Vial SUBCUT SCH ×3 (05:33→20:09)
[2022-12-18] MEDS: Topiramate 25 MG Tab PO SCH ×2 (08:43→20:09)
[2022-12-18] MEDS: atorvaSTATin 40 MG Tab PO SCH (08:43)
[2022-12-18] MEDS: Tamsulosin 0.4 MG Cap.ER PO SCH (08:43)
[2022-12-18] MEDS: amLODIPine 5 MG Tab PO SCH (08:44)
[2022-12-18] MEDS: Furosemide 40 MG Tab PO SCH (08:44)
[2022-12-18] MEDS: Docusate Sodium 100 MG Cap PO SCH ×2 (08:44→20:10)
[2022-12-18] MEDS: Metoprolol Tartrate 100 MG Tab PO SCH (08:44)
[2022-12-18] MEDS: Pantoprazole 40 MG Tab.CR PO SCH (08:44)
[2022-12-18] MEDS: metFORMIN 500 MG Tab PO SCH ×2 (08:44→20:10)
[2022-12-18] MEDS: glipiZIDE 5 MG Tab.ER PO SCH ×2 (08:44→20:10)
[2022-12-18] MEDS: QUEtiapine 100 MG Tab PO SCH (20:10)
[2022-12-19] MEDS: Heparin Sodium 5,000 Units/ML Vial SUBCUT SCH ×3 (05:29→21:01)
[2022-12-19] MEDS: Docusate Sodium 100 MG Cap PO SCH ×2 (10:13→21:01)
[2022-12-19] MEDS: Tamsulosin 0.4 MG Cap.ER PO SCH (10:13)
[2022-12-19] MEDS: Metoprolol Tartrate 100 MG Tab PO SCH (10:13)
[2022-12-19] MEDS: Furosemide 40 MG Tab PO SCH (10:16)
[2022-12-19] MEDS: Pantoprazole 40 MG Tab.CR PO SCH (10:16)
[2022-12-19] MEDS: amLODIPine 5 MG Tab PO SCH (10:16)
[2022-12-19] MEDS: atorvaSTATin 40 MG Tab PO SCH (10:16)
[2022-12-19] MEDS: glipiZIDE 5 MG Tab.ER PO SCH ×2 (10:17→21:01)
[2022-12-19] MEDS: Topiramate 25 MG Tab PO SCH ×2 (10:18→21:02)
[2022-12-19] MEDS: metFORMIN 500 MG Tab PO SCH ×2 (10:24→21:01)
[2022-12-19] MEDS: QUEtiapine 100 MG Tab PO SCH (21:02)
[2022-12-20] MEDS: Heparin Sodium 5,000 Units/ML Vial SUBCUT SCH ×3 (06:40→21:48)
[2022-12-20] MEDS: Docusate Sodium 100 MG Cap PO SCH ×2 (09:37→21:50)
[2022-12-20] MEDS: Topiramate 25 MG Tab PO SCH ×2 (09:37→21:49)
[2022-12-20] MEDS: amLODIPine 5 MG Tab PO SCH (09:37)
[2022-12-20] MEDS: Furosemide 40 MG Tab PO SCH (09:37)
[2022-12-20] MEDS: atorvaSTATin 40 MG Tab PO SCH (09:40)
[2022-12-20] MEDS: Pantoprazole 40 MG Tab.CR PO SCH (09:40)
[2022-12-20] MEDS: Metoprolol Tartrate 100 MG Tab PO SCH (09:40)
[2022-12-20] MEDS: metFORMIN 500 MG Tab PO SCH ×2 (09:40→21:50)
[2022-12-20] MEDS: glipiZIDE 5 MG Tab.ER PO SCH ×2 (09:41→21:50)
[2022-12-20] MEDS: Tamsulosin 0.4 MG Cap.ER PO SCH (09:41)
[2022-12-20] MEDS: QUEtiapine 100 MG Tab PO SCH (21:49)
[2022-12-21] MEDS: Heparin Sodium 5,000 Units/ML Vial SUBCUT SCH ×3 (06:49→21:12)
[2022-12-21] MEDS: glipiZIDE 5 MG Tab.ER PO SCH ×2 (09:49→21:11)
[2022-12-21] MEDS: Topiramate 25 MG Tab PO SCH ×2 (09:49→21:10)
[2022-12-21] MEDS: Docusate Sodium 100 MG Cap PO SCH ×2 (09:49→21:11)
[2022-12-21] MEDS: metFORMIN 500 MG Tab PO SCH ×2 (09:50→21:11)
[2022-12-21] MEDS: atorvaSTATin 40 MG Tab PO SCH (09:50)
[2022-12-21] MEDS: amLODIPine 5 MG Tab PO SCH (09:50)
[2022-12-21] MEDS: Metoprolol Tartrate 100 MG Tab PO SCH (09:50)
[2022-12-21] MEDS: Tamsulosin 0.4 MG Cap.ER PO SCH (09:51)
[2022-12-21] MEDS: Furosemide 40 MG Tab PO SCH (09:51)
[2022-12-21] MEDS: Pantoprazole 40 MG Tab.CR PO SCH (09:52)
[2022-12-21] MEDS: QUEtiapine 100 MG Tab PO SCH (21:11)
[2022-12-22] MEDS: Acetaminophen 325 MG Tab PO PRN ×2 (04:59→09:00)
[2022-12-22] MEDS: Heparin Sodium 5,000 Units/ML Vial SUBCUT SCH ×3 (05:00→20:24)
[2022-12-22] MEDS: glipiZIDE 5 MG Tab.ER PO SCH ×2 (08:58→20:23)
[2022-12-22] MEDS: atorvaSTATin 40 MG Tab PO SCH (08:58)
[2022-12-22] MEDS: Furosemide 40 MG Tab PO SCH (08:58)
[2022-12-22] MEDS: Topiramate 25 MG Tab PO SCH ×2 (08:58→20:23)
[2022-12-22] MEDS: Docusate Sodium 100 MG Cap PO SCH ×2 (08:58→20:24)
[2022-12-22] MEDS: metFORMIN 500 MG Tab PO SCH ×2 (08:58→20:23)
[2022-12-22] MEDS: Tamsulosin 0.4 MG Cap.ER PO SCH (08:58)
[2022-12-22] MEDS: Pantoprazole 40 MG Tab.CR PO SCH (08:59)
[2022-12-22] MEDS: Metoprolol Tartrate 100 MG Tab PO SCH (08:59)
[2022-12-22] MEDS: amLODIPine 5 MG Tab PO SCH (08:59)
[2022-12-22] MEDS: QUEtiapine 100 MG Tab PO SCH (20:23)
[2022-12-23] MEDS: Heparin Sodium 5,000 Units/ML Vial SUBCUT SCH ×3 (05:29→20:43)
[2022-12-23] MEDS: Tamsulosin 0.4 MG Cap.ER PO SCH (09:03)
[2022-12-23] MEDS: atorvaSTATin 40 MG Tab PO SCH (09:03)
[2022-12-23] MEDS: Topiramate 25 MG Tab PO SCH ×2 (09:03→20:44)
[2022-12-23] MEDS: Pantoprazole 40 MG Tab.CR PO SCH (09:04)
[2022-12-23] MEDS: Metoprolol Tartrate 100 MG Tab PO SCH (09:04)
[2022-12-23] MEDS: Docusate Sodium 100 MG Cap PO SCH ×2 (09:04→20:45)
[2022-12-23] MEDS: Furosemide 40 MG Tab PO SCH (09:04)
[2022-12-23] MEDS: glipiZIDE 5 MG Tab.ER PO SCH ×2 (09:05→20:44)
[2022-12-23] MEDS: metFORMIN 500 MG Tab PO SCH ×2 (09:05→20:45)
[2022-12-23] MEDS: amLODIPine 5 MG Tab PO SCH (09:05)
[2022-12-23] MEDS: QUEtiapine 100 MG Tab PO SCH (20:44)
[2022-12-24] MEDS: Acetaminophen 325 MG Tab PO PRN (04:23)
[2022-12-24] MEDS: Heparin Sodium 5,000 Units/ML Vial SUBCUT SCH ×3 (04:25→21:56)
[2022-12-24] MEDS: Topiramate 25 MG Tab PO SCH ×2 (09:27→21:57)
[2022-12-24] MEDS: Tamsulosin 0.4 MG Cap.ER PO SCH (09:27)
[2022-12-24] MEDS: Pantoprazole 40 MG Tab.CR PO SCH (09:27)
[2022-12-24] MEDS: metFORMIN 500 MG Tab PO SCH ×2 (09:27→21:57)
[2022-12-24] MEDS: atorvaSTATin 40 MG Tab PO SCH (09:27)
[2022-12-24] MEDS: amLODIPine 5 MG Tab PO SCH (09:28)
[2022-12-24] MEDS: Docusate Sodium 100 MG Cap PO SCH ×2 (09:28→21:57)
[2022-12-24] MEDS: glipiZIDE 5 MG Tab.ER PO SCH ×2 (09:28→21:57)
[2022-12-24] MEDS: Furosemide 40 MG Tab PO SCH (09:28)
[2022-12-24] MEDS: Metoprolol Tartrate 100 MG Tab PO SCH (09:29)
[2022-12-24 12:26] LABS: APPEARANCE,URINE CLEAR (Clear); BILIRUBIN,URINE NEGATIVE (Negative); COLOR,URINE YELLOW (Yellow); GLUCOSE,URINE NEGATIVE (Negative); KETONES,URINE NEGATIVE (Negative); LEUKOCYTE ESTERASE,URINE NEGATIVE (Negative); NITRITE,URINE NEGATIVE (Negative); OCCULT BLOOD,URINE NEGATIVE (Negative); PROTEIN,URINE NEGATIVE (Negative); UROBILINOGEN,URINE 0.2 (0.2-1.0)
[2022-12-24] MEDS: QUEtiapine 100 MG Tab PO SCH (21:57)
[2022-12-25] MEDS: Acetaminophen 325 MG Tab PO PRN ×2 (01:35→20:44)
[2022-12-25] MEDS: Heparin Sodium 5,000 Units/ML Vial SUBCUT SCH ×3 (05:14→22:00)
[2022-12-25] MEDS: Tamsulosin 0.4 MG Cap.ER PO SCH (09:06)
[2022-12-25] MEDS: atorvaSTATin 40 MG Tab PO SCH (09:06)
[2022-12-25] MEDS: Pantoprazole 40 MG Tab.CR PO SCH (09:07)
[2022-12-25] MEDS: Topiramate 25 MG Tab PO SCH ×2 (09:07→22:00)
[2022-12-25] MEDS: metFORMIN 500 MG Tab PO SCH ×2 (09:07→22:00)
[2022-12-25] MEDS: Furosemide 40 MG Tab PO SCH (09:07)
[2022-12-25] MEDS: glipiZIDE 5 MG Tab.ER PO SCH ×2 (09:07→22:00)
[2022-12-25] MEDS: Docusate Sodium 100 MG Cap PO SCH ×2 (09:07→22:00)
[2022-12-25] MEDS: Metoprolol Tartrate 100 MG Tab PO SCH (09:17)
[2022-12-25] MEDS: amLODIPine 5 MG Tab PO SCH (09:18)
[2022-12-25] MEDS: QUEtiapine 100 MG Tab PO SCH (22:00)
[2022-12-26] MEDS: Heparin Sodium 5,000 Units/ML Vial SUBCUT SCH ×4 (05:21→21:10)
[2022-12-26] MEDS: Topiramate 25 MG Tab PO SCH ×2 (08:29→21:08)
[2022-12-26] MEDS: Docusate Sodium 100 MG Cap PO SCH ×2 (08:29→21:07)
[2022-12-26] MEDS: Tamsulosin 0.4 MG Cap.ER PO SCH (08:29)
[2022-12-26] MEDS: glipiZIDE 5 MG Tab.ER PO SCH ×2 (08:29→21:08)
[2022-12-26] MEDS: atorvaSTATin 40 MG Tab PO SCH (08:29)
[2022-12-26] MEDS: Pantoprazole 40 MG Tab.CR PO SCH (08:29)
[2022-12-26] MEDS: metFORMIN 500 MG Tab PO SCH ×2 (08:29→21:08)
[2022-12-26] MEDS: Furosemide 40 MG Tab PO SCH (08:30)
[2022-12-26] MEDS: Metoprolol Tartrate 100 MG Tab PO SCH (08:33)
[2022-12-26] MEDS: amLODIPine 5 MG Tab PO SCH (08:34)
[2022-12-26] MEDS: QUEtiapine 100 MG Tab PO SCH (21:08)
[2022-12-27] MEDS: Heparin Sodium 5,000 Units/ML Vial SUBCUT SCH ×3 (07:45→20:56)
[2022-12-27] MEDS: glipiZIDE 5 MG Tab.ER PO SCH ×2 (08:00→20:56)
[2022-12-27] MEDS: Topiramate 25 MG Tab PO SCH ×2 (08:01→20:56)
[2022-12-27] MEDS: amLODIPine 5 MG Tab PO SCH (08:01)
[2022-12-27] MEDS: Pantoprazole 40 MG Tab.CR PO SCH (08:01)
[2022-12-27] MEDS: Furosemide 40 MG Tab PO SCH (08:01)
[2022-12-27] MEDS: metFORMIN 500 MG Tab PO SCH ×2 (08:01→20:56)
[2022-12-27] MEDS: Tamsulosin 0.4 MG Cap.ER PO SCH (08:01)
[2022-12-27] MEDS: atorvaSTATin 40 MG Tab PO SCH (08:01)
[2022-12-27] MEDS: Metoprolol Tartrate 100 MG Tab PO SCH (08:01)
[2022-12-27] MEDS: Docusate Sodium 100 MG Cap PO SCH ×2 (08:01→20:56)
[2022-12-27] MEDS: Acetaminophen 325 MG Tab PO PRN ×2 (09:38→18:50)
[2022-12-27] MEDS: QUEtiapine 100 MG Tab PO SCH (20:56)
[2022-12-28] MEDS: Heparin Sodium 5,000 Units/ML Vial SUBCUT SCH ×3 (05:30→21:13)
[2022-12-28] MEDS: Docusate Sodium 100 MG Cap PO SCH ×2 (09:09→21:13)
[2022-12-28] MEDS: Furosemide 40 MG Tab PO SCH (09:09)
[2022-12-28] MEDS: Tamsulosin 0.4 MG Cap.ER PO SCH (09:09)
[2022-12-28] MEDS: atorvaSTATin 40 MG Tab PO SCH (09:10)
[2022-12-28] MEDS: amLODIPine 5 MG Tab PO SCH (09:10)
[2022-12-28] MEDS: Metoprolol Tartrate 100 MG Tab PO SCH (09:10)
[2022-12-28] MEDS: glipiZIDE 5 MG Tab.ER PO SCH ×2 (09:11→21:14)
[2022-12-28] MEDS: metFORMIN 500 MG Tab PO SCH ×2 (09:11→21:13)
[2022-12-28] MEDS: Pantoprazole 40 MG Tab.CR PO SCH (09:11)
[2022-12-28] MEDS: Topiramate 25 MG Tab PO SCH ×2 (09:11→21:14)
[2022-12-28] MEDS: Acetaminophen 325 MG Tab PO PRN (09:21)
[2022-12-28] MEDS: QUEtiapine 100 MG Tab PO SCH (21:14)
[2022-12-29] MEDS: Heparin Sodium 5,000 Units/ML Vial SUBCUT SCH ×3 (05:20→20:38)
[2022-12-29] MEDS: atorvaSTATin 40 MG Tab PO SCH (09:27)
[2022-12-29] MEDS: glipiZIDE 5 MG Tab.ER PO SCH ×2 (09:27→20:39)
[2022-12-29] MEDS: Tamsulosin 0.4 MG Cap.ER PO SCH (09:27)
[2022-12-29] MEDS: amLODIPine 5 MG Tab PO SCH (09:27)
[2022-12-29] MEDS: Pantoprazole 40 MG Tab.CR PO SCH (09:27)
[2022-12-29] MEDS: Furosemide 40 MG Tab PO SCH (09:28)
[2022-12-29] MEDS: Metoprolol Tartrate 100 MG Tab PO SCH (09:28)
[2022-12-29] MEDS: metFORMIN 500 MG Tab PO SCH ×2 (09:28→20:39)
[2022-12-29] MEDS: Topiramate 25 MG Tab PO SCH ×2 (09:28→20:39)
[2022-12-29] MEDS: Docusate Sodium 100 MG Cap PO SCH ×2 (09:28→20:39)
[2022-12-29] MEDS: QUEtiapine 100 MG Tab PO SCH (20:39)
[2022-12-29] MEDS: Acetaminophen 325 MG Tab PO PRN (21:47)
[2022-12-30] MEDS: Heparin Sodium 5,000 Units/ML Vial SUBCUT SCH ×3 (04:14→20:12)
[2022-12-30] MEDS: Acetaminophen 325 MG Tab PO PRN ×2 (04:14→20:23)
[2022-12-30] MEDS: Topiramate 25 MG Tab PO SCH ×2 (09:22→20:13)
[2022-12-30] MEDS: metFORMIN 500 MG Tab PO SCH ×2 (09:22→20:12)
[2022-12-30] MEDS: Pantoprazole 40 MG Tab.CR PO SCH (09:22)
[2022-12-30] MEDS: atorvaSTATin 40 MG Tab PO SCH (09:22)
[2022-12-30] MEDS: Tamsulosin 0.4 MG Cap.ER PO SCH (09:22)
[2022-12-30] MEDS: Docusate Sodium 100 MG Cap PO SCH ×2 (09:23→20:12)
[2022-12-30] MEDS: glipiZIDE 5 MG Tab.ER PO SCH ×2 (09:23→20:12)
[2022-12-30] MEDS: Furosemide 40 MG Tab PO SCH (09:23)
[2022-12-30] MEDS: Metoprolol Tartrate 100 MG Tab PO SCH (09:23)
[2022-12-30] MEDS: amLODIPine 5 MG Tab PO SCH (09:24)
[2022-12-30] MEDS: QUEtiapine 100 MG Tab PO SCH (20:12)
[2022-12-31] MEDS: Heparin Sodium 5,000 Units/ML Vial SUBCUT SCH ×3 (05:55→20:01)
[2022-12-31] MEDS: atorvaSTATin 40 MG Tab PO SCH (09:32)
[2022-12-31] MEDS: glipiZIDE 5 MG Tab.ER PO SCH ×2 (09:32→20:04)
[2022-12-31] MEDS: Docusate Sodium 100 MG Cap PO SCH ×2 (09:32→20:03)
[2022-12-31] MEDS: metFORMIN 500 MG Tab PO SCH ×2 (09:32→20:04)
[2022-12-31] MEDS: Metoprolol Tartrate 100 MG Tab PO SCH (09:33)
[2022-12-31] MEDS: amLODIPine 5 MG Tab PO SCH (09:33)
[2022-12-31] MEDS: Tamsulosin 0.4 MG Cap.ER PO SCH (09:33)
[2022-12-31] MEDS: Furosemide 40 MG Tab PO SCH (09:33)
[2022-12-31] MEDS: Pantoprazole 40 MG Tab.CR PO SCH (09:33)
[2022-12-31] MEDS: Topiramate 25 MG Tab PO SCH ×2 (09:34→20:03)
[2022-12-31] MEDS: QUEtiapine 100 MG Tab PO SCH (20:04)
[2023-01-01] MEDS: Acetaminophen 325 MG Tab PO PRN (05:13)
[2023-01-01] MEDS: Heparin Sodium 5,000 Units/ML Vial SUBCUT SCH ×4 (05:13→20:01)
[2023-01-01] MEDS: metFORMIN 500 MG Tab PO SCH ×3 (08:53→20:01)
[2023-01-01] MEDS: Tamsulosin 0.4 MG Cap.ER PO SCH (08:53)
[2023-01-01] MEDS: Topiramate 25 MG Tab PO SCH ×3 (08:54→20:01)
[2023-01-01] MEDS: Metoprolol Tartrate 100 MG Tab PO SCH (08:54)
[2023-01-01] MEDS: atorvaSTATin 40 MG Tab PO SCH (08:54)
[2023-01-01] MEDS: Pantoprazole 40 MG Tab.CR PO SCH (08:54)
[2023-01-01] MEDS: Furosemide 40 MG Tab PO SCH (08:55)
[2023-01-01] MEDS: glipiZIDE 5 MG Tab.ER PO SCH ×2 (08:55→19:59)
[2023-01-01] MEDS: amLODIPine 5 MG Tab PO SCH (08:55)
[2023-01-01] MEDS: Docusate Sodium 100 MG Cap PO SCH ×3 (08:55→20:01)
[2023-01-01] MEDS: QUEtiapine 100 MG Tab PO SCH ×2 (19:58→20:01)
[2023-01-02] MEDS: Heparin Sodium 5,000 Units/ML Vial SUBCUT SCH ×3 (04:10→21:21)
[2023-01-02] MEDS: Docusate Sodium 100 MG Cap PO SCH ×2 (08:37→21:21)
[2023-01-02] MEDS: metFORMIN 500 MG Tab PO SCH ×2 (08:37→21:22)
[2023-01-02] MEDS: Pantoprazole 40 MG Tab.CR PO SCH (08:37)
[2023-01-02] MEDS: Tamsulosin 0.4 MG Cap.ER PO SCH (08:37)
[2023-01-02] MEDS: glipiZIDE 5 MG Tab.ER PO SCH ×2 (08:37→21:22)
[2023-01-02] MEDS: Furosemide 40 MG Tab PO SCH (08:37)
[2023-01-02] MEDS: atorvaSTATin 40 MG Tab PO SCH (08:37)
[2023-01-02] MEDS: Topiramate 25 MG Tab PO SCH ×2 (08:37→21:21)
[2023-01-02] MEDS: Metoprolol Tartrate 100 MG Tab PO SCH (08:38)
[2023-01-02] MEDS: amLODIPine 5 MG Tab PO SCH (08:39)
[2023-01-02] MEDS: QUEtiapine 100 MG Tab PO SCH (21:22)
[2023-01-02] MEDS: Acetaminophen 325 MG Tab PO PRN (21:23)
[2023-01-03] MEDS: Heparin Sodium 5,000 Units/ML Vial SUBCUT SCH ×3 (06:02→22:02)
[2023-01-03] MEDS: Pantoprazole 40 MG Tab.CR PO SCH (09:54)
[2023-01-03] MEDS: atorvaSTATin 40 MG Tab PO SCH (09:54)
[2023-01-03] MEDS: Docusate Sodium 100 MG Cap PO SCH ×2 (09:54→22:00)
[2023-01-03] MEDS: Furosemide 40 MG Tab PO SCH (09:55)
[2023-01-03] MEDS: Tamsulosin 0.4 MG Cap.ER PO SCH (09:55)
[2023-01-03] MEDS: glipiZIDE 5 MG Tab.ER PO SCH ×2 (09:55→22:02)
[2023-01-03] MEDS: Topiramate 25 MG Tab PO SCH ×2 (09:55→22:01)
[2023-01-03] MEDS: metFORMIN 500 MG Tab PO SCH ×2 (09:55→22:00)
[2023-01-03] MEDS: Metoprolol Tartrate 100 MG Tab PO SCH (09:56)
[2023-01-03] MEDS: amLODIPine 5 MG Tab PO SCH (09:56)
[2023-01-03] MEDS: Acetaminophen 325 MG Tab PO PRN (22:00)
[2023-01-03] MEDS: QUEtiapine 100 MG Tab PO SCH (22:02)
[2023-01-04] MEDS: Heparin Sodium 5,000 Units/ML Vial SUBCUT SCH ×3 (06:28→21:37)
[2023-01-04] MEDS: Topiramate 25 MG Tab PO SCH ×3 (07:18→21:37)
[2023-01-04] MEDS: metFORMIN 500 MG Tab PO SCH ×3 (07:18→21:38)
[2023-01-04] MEDS: Pantoprazole 40 MG Tab.CR PO SCH ×2 (07:18→08:34)
[2023-01-04] MEDS: atorvaSTATin 40 MG Tab PO SCH ×2 (07:19→08:33)
[2023-01-04] MEDS: Docusate Sodium 100 MG Cap PO SCH ×3 (07:20→21:38)
[2023-01-04] MEDS: Metoprolol Tartrate 100 MG Tab PO SCH ×2 (07:20→08:34)
[2023-01-04] MEDS: glipiZIDE 5 MG Tab.ER PO SCH ×3 (07:20→21:38)
[2023-01-04] MEDS: Tamsulosin 0.4 MG Cap.ER PO SCH ×2 (07:20→08:30)
[2023-01-04] MEDS: Furosemide 40 MG Tab PO SCH ×2 (07:21→08:33)
[2023-01-04] MEDS: amLODIPine 5 MG Tab PO SCH ×2 (07:21→08:34)
[2023-01-04] MEDS: Acetaminophen 325 MG Tab PO PRN ×2 (13:06→21:38)
[2023-01-04] MEDS: QUEtiapine 100 MG Tab PO SCH (21:37)
[2023-01-05] MEDS: Heparin Sodium 5,000 Units/ML Vial SUBCUT SCH ×3 (05:16→21:01)
[2023-01-05] MEDS: Acetaminophen 325 MG Tab PO PRN ×2 (05:51→13:09)
[2023-01-05] MEDS: metFORMIN 500 MG Tab PO SCH ×2 (08:32→21:04)
[2023-01-05] MEDS: glipiZIDE 5 MG Tab.ER PO SCH ×2 (08:33→21:04)
[2023-01-05] MEDS: Topiramate 25 MG Tab PO SCH ×2 (08:34→20:58)
[2023-01-05] MEDS: amLODIPine 5 MG Tab PO SCH (08:34)
[2023-01-05] MEDS: atorvaSTATin 40 MG Tab PO SCH (08:34)
[2023-01-05] MEDS: Tamsulosin 0.4 MG Cap.ER PO SCH (08:34)
[2023-01-05] MEDS: Furosemide 40 MG Tab PO SCH (08:34)
[2023-01-05] MEDS: Docusate Sodium 100 MG Cap PO SCH ×2 (08:34→20:59)
[2023-01-05] MEDS: Metoprolol Tartrate 100 MG Tab PO SCH (08:34)
[2023-01-05] MEDS: Pantoprazole 40 MG Tab.CR PO SCH (08:35)
[2023-01-05] MEDS: QUEtiapine 100 MG Tab PO SCH (20:59)
[2023-01-06] MEDS: Heparin Sodium 5,000 Units/ML Vial SUBCUT SCH ×3 (05:50→20:38)
[2023-01-06] MEDS: amLODIPine 5 MG Tab PO SCH (09:34)
[2023-01-06] MEDS: Docusate Sodium 100 MG Cap PO SCH ×2 (09:34→20:37)
[2023-01-06] MEDS: Furosemide 40 MG Tab PO SCH (09:34)
[2023-01-06] MEDS: Topiramate 25 MG Tab PO SCH ×2 (09:35→20:38)
[2023-01-06] MEDS: Metoprolol Tartrate 100 MG Tab PO SCH (09:35)
[2023-01-06] MEDS: metFORMIN 500 MG Tab PO SCH ×2 (09:35→20:37)
[2023-01-06] MEDS: glipiZIDE 5 MG Tab.ER PO SCH ×2 (09:35→20:38)
[2023-01-06] MEDS: atorvaSTATin 40 MG Tab PO SCH (09:35)
[2023-01-06] MEDS: Tamsulosin 0.4 MG Cap.ER PO SCH (09:35)
[2023-01-06] MEDS: Pantoprazole 40 MG Tab.CR PO SCH (09:36)
[2023-01-06] MEDS: Acetaminophen 325 MG Tab PO PRN ×2 (09:42→20:43)
[2023-01-06] MEDS: QUEtiapine 100 MG Tab PO SCH (20:37)
[2023-01-07] MEDS: Heparin Sodium 5,000 Units/ML Vial SUBCUT SCH ×3 (06:10→22:08)
[2023-01-07] MEDS: amLODIPine 5 MG Tab PO SCH (09:07)
[2023-01-07] MEDS: metFORMIN 500 MG Tab PO SCH ×2 (09:08→22:11)
[2023-01-07] MEDS: Docusate Sodium 100 MG Cap PO SCH ×2 (09:08→22:11)
[2023-01-07] MEDS: Furosemide 40 MG Tab PO SCH (09:08)
[2023-01-07] MEDS: Metoprolol Tartrate 100 MG Tab PO SCH (09:08)
[2023-01-07] MEDS: Topiramate 25 MG Tab PO SCH ×2 (09:08→22:10)
[2023-01-07] MEDS: atorvaSTATin 40 MG Tab PO SCH (09:08)
[2023-01-07] MEDS: Pantoprazole 40 MG Tab.CR PO SCH (09:09)
[2023-01-07] MEDS: Tamsulosin 0.4 MG Cap.ER PO SCH (09:09)
[2023-01-07] MEDS: glipiZIDE 5 MG Tab.ER PO SCH ×2 (09:09→22:11)
[2023-01-07] MEDS: QUEtiapine 100 MG Tab PO SCH (22:09)
[2023-01-07] MEDS: Acetaminophen 325 MG Tab PO PRN (22:11)
[2023-01-08] MEDS: Heparin Sodium 5,000 Units/ML Vial SUBCUT SCH ×3 (06:07→20:27)
[2023-01-08] MEDS: Tamsulosin 0.4 MG Cap.ER PO SCH (08:26)
[2023-01-08] MEDS: atorvaSTATin 40 MG Tab PO SCH (08:26)
[2023-01-08] MEDS: Topiramate 25 MG Tab PO SCH ×2 (08:27→20:27)
[2023-01-08] MEDS: Furosemide 40 MG Tab PO SCH (08:27)
[2023-01-08] MEDS: Pantoprazole 40 MG Tab.CR PO SCH (08:27)
[2023-01-08] MEDS: Metoprolol Tartrate 100 MG Tab PO SCH (08:27)
[2023-01-08] MEDS: Docusate Sodium 100 MG Cap PO SCH ×2 (08:27→20:27)
[2023-01-08] MEDS: amLODIPine 5 MG Tab PO SCH (08:28)
[2023-01-08] MEDS: glipiZIDE 5 MG Tab.ER PO SCH ×2 (08:28→20:27)
[2023-01-08] MEDS: metFORMIN 500 MG Tab PO SCH ×2 (08:28→20:27)
[2023-01-08] MEDS: QUEtiapine 100 MG Tab PO SCH (20:27)
[2023-01-08] MEDS: Acetaminophen 325 MG Tab PO PRN (20:27)
[2023-01-08] MEDS: Fluticasone NASAL Spray 16 GM Bottle NASBOTH PRN (20:49)
[2023-01-09] MEDS: Heparin Sodium 5,000 Units/ML Vial SUBCUT SCH ×3 (06:08→22:25)
[2023-01-09] MEDS: atorvaSTATin 40 MG Tab PO SCH (08:18)
[2023-01-09] MEDS: Docusate Sodium 100 MG Cap PO SCH ×2 (08:18→22:25)
[2023-01-09] MEDS: Furosemide 40 MG Tab PO SCH (08:20)
[2023-01-09] MEDS: Metoprolol Tartrate 100 MG Tab PO SCH (08:20)
[2023-01-09] MEDS: Pantoprazole 40 MG Tab.CR PO SCH (08:20)
[2023-01-09] MEDS: Acetaminophen 325 MG Tab PO PRN ×2 (08:21→22:30)
[2023-01-09] MEDS: Tamsulosin 0.4 MG Cap.ER PO SCH (08:22)
[2023-01-09] MEDS: amLODIPine 5 MG Tab PO SCH (08:22)
[2023-01-09] MEDS: glipiZIDE 5 MG Tab.ER PO SCH ×2 (08:22→22:25)
[2023-01-09] MEDS: Topiramate 25 MG Tab PO SCH ×2 (08:23→22:25)
[2023-01-09] MEDS: metFORMIN 500 MG Tab PO SCH ×2 (08:23→22:25)
[2023-01-09] MEDS: QUEtiapine 100 MG Tab PO SCH (22:25)
[2023-01-09] MEDS: Fluticasone NASAL Spray 16 GM Bottle NASBOTH PRN (22:30)
[2023-01-10] MEDS: Heparin Sodium 5,000 Units/ML Vial SUBCUT SCH ×3 (06:16→20:53)
[2023-01-10] MEDS: amLODIPine 5 MG Tab PO SCH (08:21)
[2023-01-10] MEDS: glipiZIDE 5 MG Tab.ER PO SCH ×2 (08:21→20:54)
[2023-01-10] MEDS: Furosemide 40 MG Tab PO SCH (08:21)
[2023-01-10] MEDS: Acetaminophen 325 MG Tab PO PRN (08:22)
[2023-01-10] MEDS: metFORMIN 500 MG Tab PO SCH ×2 (08:22→20:54)
[2023-01-10] MEDS: Docusate Sodium 100 MG Cap PO SCH ×2 (08:22→20:54)
[2023-01-10] MEDS: Tamsulosin 0.4 MG Cap.ER PO SCH (08:23)
[2023-01-10] MEDS: atorvaSTATin 40 MG Tab PO SCH (08:23)
[2023-01-10] MEDS: Pantoprazole 40 MG Tab.CR PO SCH (08:24)
[2023-01-10] MEDS: Metoprolol Tartrate 100 MG Tab PO SCH (08:24)
[2023-01-10] MEDS: Topiramate 25 MG Tab PO SCH ×2 (08:25→20:54)
[2023-01-10] MEDS: QUEtiapine 100 MG Tab PO SCH (20:54)
[2023-01-10] MEDS: Fluticasone NASAL Spray 16 GM Bottle NASBOTH PRN (20:54)
[2023-01-11] MEDS: Heparin Sodium 5,000 Units/ML Vial SUBCUT SCH ×3 (05:08→20:30)
[2023-01-11] MEDS: Acetaminophen 325 MG Tab PO PRN (05:08)
[2023-01-11] MEDS: Topiramate 25 MG Tab PO SCH ×2 (08:26→20:30)
[2023-01-11] MEDS: Tamsulosin 0.4 MG Cap.ER PO SCH (08:27)
[2023-01-11] MEDS: atorvaSTATin 40 MG Tab PO SCH (08:27)
[2023-01-11] MEDS: metFORMIN 500 MG Tab PO SCH ×2 (08:28→20:30)
[2023-01-11] MEDS: Docusate Sodium 100 MG Cap PO SCH ×2 (08:28→20:30)
[2023-01-11] MEDS: glipiZIDE 5 MG Tab.ER PO SCH ×2 (08:28→20:30)
[2023-01-11] MEDS: Pantoprazole 40 MG Tab.CR PO SCH (08:28)
[2023-01-11] MEDS: Furosemide 40 MG Tab PO SCH (08:29)
[2023-01-11] MEDS: amLODIPine 5 MG Tab PO SCH (08:30)
[2023-01-11] MEDS: Metoprolol Tartrate 100 MG Tab PO SCH (08:30)
[2023-01-11] MEDS: QUEtiapine 100 MG Tab PO SCH (20:31)
[2023-01-12] MEDS: Heparin Sodium 5,000 Units/ML Vial SUBCUT SCH ×3 (05:32→21:05)
[2023-01-12] MEDS: Acetaminophen 325 MG Tab PO PRN ×3 (05:35→17:32)
[2023-01-12] MEDS: Pantoprazole 40 MG Tab.CR PO SCH (09:42)
[2023-01-12] MEDS: atorvaSTATin 40 MG Tab PO SCH (09:42)
[2023-01-12] MEDS: amLODIPine 5 MG Tab PO SCH (09:42)
[2023-01-12] MEDS: Tamsulosin 0.4 MG Cap.ER PO SCH (09:42)
[2023-01-12] MEDS: Furosemide 40 MG Tab PO SCH (09:42)
[2023-01-12] MEDS: glipiZIDE 5 MG Tab.ER PO SCH ×2 (09:42→21:05)
[2023-01-12] MEDS: Docusate Sodium 100 MG Cap PO SCH ×2 (09:42→21:05)
[2023-01-12] MEDS: Metoprolol Tartrate 100 MG Tab PO SCH (09:43)
[2023-01-12] MEDS: Topiramate 25 MG Tab PO SCH ×2 (09:43→21:05)
[2023-01-12] MEDS: metFORMIN 500 MG Tab PO SCH ×2 (09:44→21:05)
[2023-01-12] MEDS: QUEtiapine 100 MG Tab PO SCH (21:05)
[2023-01-13] MEDS: Acetaminophen 325 MG Tab PO PRN ×2 (05:18→09:20)
[2023-01-13] MEDS: Heparin Sodium 5,000 Units/ML Vial SUBCUT SCH ×3 (05:18→20:25)
[2023-01-13] MEDS: Docusate Sodium 100 MG Cap PO SCH ×2 (09:13→20:25)
[2023-01-13] MEDS: Furosemide 40 MG Tab PO SCH (09:13)
[2023-01-13] MEDS: amLODIPine 5 MG Tab PO SCH (09:14)
[2023-01-13] MEDS: glipiZIDE 5 MG Tab.ER PO SCH ×2 (09:18→20:26)
[2023-01-13] MEDS: metFORMIN 500 MG Tab PO SCH ×2 (09:18→20:25)
[2023-01-13] MEDS: atorvaSTATin 40 MG Tab PO SCH (09:18)
[2023-01-13] MEDS: Topiramate 25 MG Tab PO SCH ×2 (09:19→20:25)
[2023-01-13] MEDS: Tamsulosin 0.4 MG Cap.ER PO SCH (09:19)
[2023-01-13] MEDS: Metoprolol Tartrate 100 MG Tab PO SCH (09:19)
[2023-01-13] MEDS: Pantoprazole 40 MG Tab.CR PO SCH (09:19)
[2023-01-13] MEDS: Fluticasone NASAL Spray 16 GM Bottle NASBOTH PRN (09:40)
[2023-01-13] MEDS: QUEtiapine 100 MG Tab PO SCH (20:26)
[2023-01-14] MEDS: Heparin Sodium 5,000 Units/ML Vial SUBCUT SCH ×3 (05:29→21:42)
[2023-01-14] MEDS: Acetaminophen 325 MG Tab PO PRN ×3 (05:29→21:48)
[2023-01-14] MEDS: Topiramate 25 MG Tab PO SCH ×2 (08:21→21:28)
[2023-01-14] MEDS: atorvaSTATin 40 MG Tab PO SCH (08:21)
[2023-01-14] MEDS: glipiZIDE 5 MG Tab.ER PO SCH ×2 (08:22→21:40)
[2023-01-14] MEDS: Tamsulosin 0.4 MG Cap.ER PO SCH (08:22)
[2023-01-14] MEDS: Pantoprazole 40 MG Tab.CR PO SCH (08:22)
[2023-01-14] MEDS: Furosemide 40 MG Tab PO SCH (08:22)
[2023-01-14] MEDS: amLODIPine 5 MG Tab PO SCH (08:22)
[2023-01-14] MEDS: Metoprolol Tartrate 100 MG Tab PO SCH (08:23)
[2023-01-14] MEDS: Docusate Sodium 100 MG Cap PO SCH ×2 (08:23→21:40)
[2023-01-14] MEDS: metFORMIN 500 MG Tab PO SCH ×2 (08:23→21:29)
[2023-01-14] MEDS: QUEtiapine 100 MG Tab PO SCH (21:40)
[2023-01-14] MEDS: Fluticasone NASAL Spray 16 GM Bottle NASBOTH PRN (21:47)
[2023-01-15] MEDS: Heparin Sodium 5,000 Units/ML Vial SUBCUT SCH ×3 (05:59→21:29)
[2023-01-15] MEDS: Acetaminophen 325 MG Tab PO PRN (06:00)
[2023-01-15] MEDS: Topiramate 25 MG Tab PO SCH ×2 (08:24→21:30)
[2023-01-15] MEDS: Docusate Sodium 100 MG Cap PO SCH ×2 (08:24→21:30)
[2023-01-15] MEDS: Tamsulosin 0.4 MG Cap.ER PO SCH (08:24)
[2023-01-15] MEDS: Metoprolol Tartrate 100 MG Tab PO SCH (08:24)
[2023-01-15] MEDS: Furosemide 40 MG Tab PO SCH (08:24)
[2023-01-15] MEDS: Pantoprazole 40 MG Tab.CR PO SCH (08:25)
[2023-01-15] MEDS: glipiZIDE 5 MG Tab.ER PO SCH ×2 (08:25→21:30)
[2023-01-15] MEDS: amLODIPine 5 MG Tab PO SCH (08:25)
[2023-01-15] MEDS: metFORMIN 500 MG Tab PO SCH ×2 (08:26→21:31)
[2023-01-15] MEDS: atorvaSTATin 40 MG Tab PO SCH (08:26)
[2023-01-15] MEDS: QUEtiapine 100 MG Tab PO SCH (21:31)
[2023-01-16] MEDS: Heparin Sodium 5,000 Units/ML Vial SUBCUT SCH ×3 (05:50→21:37)
[2023-01-16] MEDS: atorvaSTATin 40 MG Tab PO SCH (08:30)
[2023-01-16] MEDS: Tamsulosin 0.4 MG Cap.ER PO SCH (08:30)
[2023-01-16] MEDS: amLODIPine 5 MG Tab PO SCH (08:31)
[2023-01-16] MEDS: Topiramate 25 MG Tab PO SCH ×2 (08:31→21:39)
[2023-01-16] MEDS: glipiZIDE 5 MG Tab.ER PO SCH ×2 (08:32→21:38)
[2023-01-16] MEDS: Docusate Sodium 100 MG Cap PO SCH ×2 (08:32→21:37)
[2023-01-16] MEDS: metFORMIN 500 MG Tab PO SCH ×2 (08:33→21:37)
[2023-01-16] MEDS: Pantoprazole 40 MG Tab.CR PO SCH (08:33)
[2023-01-16] MEDS: Acetaminophen 325 MG Tab PO PRN ×2 (08:34→21:52)
[2023-01-16] MEDS: Furosemide 40 MG Tab PO SCH (08:34)
[2023-01-16] MEDS: Metoprolol Tartrate 100 MG Tab PO SCH (08:34)
[2023-01-16] MEDS: QUEtiapine 100 MG Tab PO SCH (21:38)
[2023-01-17] MEDS: Heparin Sodium 5,000 Units/ML Vial SUBCUT SCH ×3 (06:05→21:20)
[2023-01-17] MEDS: Acetaminophen 325 MG Tab PO PRN ×2 (06:05→21:21)
[2023-01-17] MEDS: Topiramate 25 MG Tab PO SCH ×2 (09:44→21:19)
[2023-01-17] MEDS: Docusate Sodium 100 MG Cap PO SCH ×2 (09:45→21:22)
[2023-01-17] MEDS: amLODIPine 5 MG Tab PO SCH (09:46)
[2023-01-17] MEDS: Pantoprazole 40 MG Tab.CR PO SCH (09:46)
[2023-01-17] MEDS: Furosemide 40 MG Tab PO SCH (09:46)
[2023-01-17] MEDS: atorvaSTATin 40 MG Tab PO SCH (09:47)
[2023-01-17] MEDS: glipiZIDE 5 MG Tab.ER PO SCH ×2 (09:47→21:21)
[2023-01-17] MEDS: metFORMIN 500 MG Tab PO SCH ×2 (09:47→21:18)
[2023-01-17] MEDS: Metoprolol Tartrate 100 MG Tab PO SCH (09:48)
[2023-01-17] MEDS: Fluticasone NASAL Spray 16 GM Bottle NASBOTH PRN (09:48)
[2023-01-17] MEDS: Tamsulosin 0.4 MG Cap.ER PO SCH (09:48)
[2023-01-17] MEDS: QUEtiapine 100 MG Tab PO SCH (21:19)
[2023-01-18] MEDS: Heparin Sodium 5,000 Units/ML Vial SUBCUT SCH ×3 (06:34→21:02)
[2023-01-18] MEDS: Docusate Sodium 100 MG Cap PO SCH ×2 (10:11→21:05)
[2023-01-18] MEDS: Topiramate 25 MG Tab PO SCH ×2 (10:11→21:02)
[2023-01-18] MEDS: glipiZIDE 5 MG Tab.ER PO SCH ×2 (10:11→21:04)
[2023-01-18] MEDS: atorvaSTATin 40 MG Tab PO SCH (10:12)
[2023-01-18] MEDS: Furosemide 40 MG Tab PO SCH (10:13)
[2023-01-18] MEDS: Tamsulosin 0.4 MG Cap.ER PO SCH (10:13)
[2023-01-18] MEDS: amLODIPine 5 MG Tab PO SCH (10:14)
[2023-01-18] MEDS: Pantoprazole 40 MG Tab.CR PO SCH (10:15)
[2023-01-18] MEDS: Metoprolol Tartrate 100 MG Tab PO SCH (10:16)
[2023-01-18] MEDS: metFORMIN 500 MG Tab PO SCH ×2 (10:16→21:04)
[2023-01-18] MEDS: Acetaminophen 325 MG Tab PO PRN ×2 (10:24→21:03)
[2023-01-18] MEDS: Fluticasone NASAL Spray 16 GM Bottle NASBOTH PRN (10:25)
[2023-01-18] MEDS: QUEtiapine 100 MG Tab PO SCH (21:03)
[2023-01-19] MEDS: Heparin Sodium 5,000 Units/ML Vial SUBCUT SCH ×3 (06:14→20:48)
[2023-01-19] MEDS: Topiramate 25 MG Tab PO SCH ×2 (08:15→20:45)
[2023-01-19] MEDS: glipiZIDE 5 MG Tab.ER PO SCH ×2 (08:15→20:44)
[2023-01-19] MEDS: Docusate Sodium 100 MG Cap PO SCH ×2 (08:17→20:44)
[2023-01-19] MEDS: Tamsulosin 0.4 MG Cap.ER PO SCH (08:17)
[2023-01-19] MEDS: amLODIPine 5 MG Tab PO SCH (08:17)
[2023-01-19] MEDS: atorvaSTATin 40 MG Tab PO SCH (08:18)
[2023-01-19] MEDS: metFORMIN 500 MG Tab PO SCH ×2 (08:18→20:45)
[2023-01-19] MEDS: Metoprolol Tartrate 100 MG Tab PO SCH (08:19)
[2023-01-19] MEDS: Pantoprazole 40 MG Tab.CR PO SCH (08:20)
[2023-01-19] MEDS: Furosemide 40 MG Tab PO SCH (08:20)
[2023-01-19] MEDS: QUEtiapine 100 MG Tab PO SCH (20:45)
[2023-01-19] MEDS: Acetaminophen 325 MG Tab PO PRN (20:55)
[2023-01-19] MEDS: Fluticasone NASAL Spray 16 GM Bottle NASBOTH PRN (20:56)
[2023-01-20] MEDS: Metoprolol Tartrate 100 MG Tab PO SCH (08:58)
[2023-01-20] MEDS: Docusate Sodium 100 MG Cap PO SCH ×2 (08:58→20:27)
[2023-01-20] MEDS: Tamsulosin 0.4 MG Cap.ER PO SCH (08:58)
[2023-01-20] MEDS: atorvaSTATin 40 MG Tab PO SCH (08:58)
[2023-01-20] MEDS: Pantoprazole 40 MG Tab.CR PO SCH (08:58)
[2023-01-20] MEDS: metFORMIN 500 MG Tab PO SCH ×2 (08:59→20:28)
[2023-01-20] MEDS: amLODIPine 5 MG Tab PO SCH (08:59)
[2023-01-20] MEDS: Furosemide 40 MG Tab PO SCH (08:59)
[2023-01-20] MEDS: glipiZIDE 5 MG Tab.ER PO SCH ×2 (08:59→20:28)
[2023-01-20] MEDS: Topiramate 25 MG Tab PO SCH ×2 (08:59→20:30)
[2023-01-20] MEDS: Heparin Sodium 5,000 Units/ML Vial SUBCUT SCH ×3 (13:33→20:31)
[2023-01-20] MEDS: QUEtiapine 100 MG Tab PO SCH (20:29)
[2023-01-20] MEDS: Acetaminophen 325 MG Tab PO PRN (20:47)
[2023-01-20] MEDS: Fluticasone NASAL Spray 16 GM Bottle NASBOTH PRN (20:48)
[2023-01-21] MEDS: Heparin Sodium 5,000 Units/ML Vial SUBCUT SCH ×3 (06:19→20:24)
[2023-01-21] MEDS: Topiramate 25 MG Tab PO SCH ×2 (09:40→20:25)
[2023-01-21] MEDS: Tamsulosin 0.4 MG Cap.ER PO SCH (09:41)
[2023-01-21] MEDS: metFORMIN 500 MG Tab PO SCH ×2 (09:42→20:23)
[2023-01-21] MEDS: atorvaSTATin 40 MG Tab PO SCH (09:42)
[2023-01-21] MEDS: Furosemide 40 MG Tab PO SCH (09:43)
[2023-01-21] MEDS: Metoprolol Tartrate 100 MG Tab PO SCH (09:43)
[2023-01-21] MEDS: amLODIPine 5 MG Tab PO SCH (09:43)
[2023-01-21] MEDS: Pantoprazole 40 MG Tab.CR PO SCH (09:44)
[2023-01-21] MEDS: Docusate Sodium 100 MG Cap PO SCH ×2 (09:44→20:23)
[2023-01-21] MEDS: glipiZIDE 5 MG Tab.ER PO SCH ×2 (09:45→20:24)
[2023-01-21] MEDS: Fluticasone NASAL Spray 16 GM Bottle NASBOTH PRN ×2 (09:55→20:35)
[2023-01-21] MEDS: Acetaminophen 325 MG Tab PO PRN ×2 (09:56→20:34)
[2023-01-21] MEDS: QUEtiapine 100 MG Tab PO SCH (20:25)
[2023-01-22] MEDS: Heparin Sodium 5,000 Units/ML Vial SUBCUT SCH ×3 (05:23→20:12)
[2023-01-22] MEDS: Metoprolol Tartrate 100 MG Tab PO SCH (10:27)
[2023-01-22] MEDS: Tamsulosin 0.4 MG Cap.ER PO SCH (10:27)
[2023-01-22] MEDS: Furosemide 40 MG Tab PO SCH (10:28)
[2023-01-22] MEDS: Pantoprazole 40 MG Tab.CR PO SCH (10:28)
[2023-01-22] MEDS: metFORMIN 500 MG Tab PO SCH ×2 (10:28→20:12)
[2023-01-22] MEDS: atorvaSTATin 40 MG Tab PO SCH (10:29)
[2023-01-22] MEDS: amLODIPine 5 MG Tab PO SCH (10:29)
[2023-01-22] MEDS: Docusate Sodium 100 MG Cap PO SCH ×2 (10:29→20:11)
[2023-01-22] MEDS: glipiZIDE 5 MG Tab.ER PO SCH ×2 (10:29→20:12)
[2023-01-22] MEDS: Topiramate 25 MG Tab PO SCH ×2 (10:30→20:13)
[2023-01-22] MEDS: QUEtiapine 100 MG Tab PO SCH (20:12)
[2023-01-22] MEDS: Acetaminophen 325 MG Tab PO PRN (20:13)
[2023-01-22] MEDS: Fluticasone NASAL Spray 16 GM Bottle NASBOTH PRN (20:14)
[2023-01-23] MEDS: Heparin Sodium 5,000 Units/ML Vial SUBCUT SCH ×3 (05:51→22:39)
[2023-01-23] MEDS: Metoprolol Tartrate 100 MG Tab PO SCH (09:30)
[2023-01-23] MEDS: Topiramate 25 MG Tab PO SCH ×2 (09:30→22:40)
[2023-01-23] MEDS: Docusate Sodium 100 MG Cap PO SCH ×2 (09:31→22:40)
[2023-01-23] MEDS: metFORMIN 500 MG Tab PO SCH ×2 (09:31→22:41)
[2023-01-23] MEDS: Pantoprazole 40 MG Tab.CR PO SCH (09:31)
[2023-01-23] MEDS: amLODIPine 5 MG Tab PO SCH (09:31)
[2023-01-23] MEDS: Furosemide 40 MG Tab PO SCH (09:31)
[2023-01-23] MEDS: atorvaSTATin 40 MG Tab PO SCH (09:32)
[2023-01-23] MEDS: glipiZIDE 5 MG Tab.ER PO SCH ×2 (09:32→22:41)
[2023-01-23] MEDS: Tamsulosin 0.4 MG Cap.ER PO SCH (09:32)
[2023-01-23] MEDS: Acetaminophen 325 MG Tab PO PRN (09:38)
[2023-01-23] MEDS: QUEtiapine 100 MG Tab PO SCH (22:39)
[2023-01-23] MEDS: Fluticasone NASAL Spray 16 GM Bottle NASBOTH PRN (23:03)
[2023-01-24] MEDS: Heparin Sodium 5,000 Units/ML Vial SUBCUT SCH ×3 (05:21→20:48)
[2023-01-24] MEDS: Acetaminophen 325 MG Tab PO PRN ×3 (05:23→20:54)
[2023-01-24] MEDS: atorvaSTATin 40 MG Tab PO SCH (10:05)
[2023-01-24] MEDS: glipiZIDE 5 MG Tab.ER PO SCH ×2 (10:08→20:49)
[2023-01-24] MEDS: amLODIPine 5 MG Tab PO SCH (10:09)
[2023-01-24] MEDS: Pantoprazole 40 MG Tab.CR PO SCH (10:12)
[2023-01-24] MEDS: Docusate Sodium 100 MG Cap PO SCH ×2 (10:12→20:49)
[2023-01-24] MEDS: Metoprolol Tartrate 100 MG Tab PO SCH (10:12)
[2023-01-24] MEDS: Topiramate 25 MG Tab PO SCH ×2 (10:13→20:48)
[2023-01-24] MEDS: Tamsulosin 0.4 MG Cap.ER PO SCH (10:13)
[2023-01-24] MEDS: Furosemide 40 MG Tab PO SCH (10:13)
[2023-01-24] MEDS: metFORMIN 500 MG Tab PO SCH ×2 (10:14→20:48)
[2023-01-24] MEDS: Fluticasone NASAL Spray 16 GM Bottle NASBOTH PRN ×2 (10:26→20:50)
[2023-01-24] MEDS: QUEtiapine 100 MG Tab PO SCH (20:49)
[2023-01-25] MEDS: Heparin Sodium 5,000 Units/ML Vial SUBCUT SCH ×3 (04:37→20:31)
[2023-01-25] MEDS: atorvaSTATin 40 MG Tab PO SCH (09:49)
[2023-01-25] MEDS: Tamsulosin 0.4 MG Cap.ER PO SCH (09:50)
[2023-01-25] MEDS: Pantoprazole 40 MG Tab.CR PO SCH (09:51)
[2023-01-25] MEDS: Acetaminophen 325 MG Tab PO PRN ×2 (10:00→20:33)
[2023-01-25] MEDS: Metoprolol Tartrate 100 MG Tab PO SCH (10:00)
[2023-01-25] MEDS: metFORMIN 500 MG Tab PO SCH ×2 (10:01→20:33)
[2023-01-25] MEDS: Furosemide 40 MG Tab PO SCH (10:01)
[2023-01-25] MEDS: amLODIPine 5 MG Tab PO SCH (10:01)
[2023-01-25] MEDS: Fluticasone NASAL Spray 16 GM Bottle NASBOTH PRN (10:02)
[2023-01-25] MEDS: glipiZIDE 5 MG Tab.ER PO SCH ×2 (10:02→20:33)
[2023-01-25] MEDS: Topiramate 25 MG Tab PO SCH ×2 (10:02→20:32)
[2023-01-25] MEDS: Docusate Sodium 100 MG Cap PO SCH ×2 (10:11→20:32)
[2023-01-25] MEDS: QUEtiapine 100 MG Tab PO SCH (20:32)
[2023-01-26] MEDS: Heparin Sodium 5,000 Units/ML Vial SUBCUT SCH ×5 (03:55→20:04)
[2023-01-26] MEDS: Acetaminophen 325 MG Tab PO PRN ×2 (09:40→19:41)
[2023-01-26] MEDS: Fluticasone NASAL Spray 16 GM Bottle NASBOTH PRN (09:40)
[2023-01-26] MEDS: atorvaSTATin 40 MG Tab PO SCH (09:41)
[2023-01-26] MEDS: glipiZIDE 5 MG Tab.ER PO SCH ×3 (09:41→20:04)
[2023-01-26] MEDS: metFORMIN 500 MG Tab PO SCH ×3 (09:41→20:03)
[2023-01-26] MEDS: Pantoprazole 40 MG Tab.CR PO SCH (09:41)
[2023-01-26] MEDS: Metoprolol Tartrate 100 MG Tab PO SCH (09:45)
[2023-01-26] MEDS: Docusate Sodium 100 MG Cap PO SCH ×2 (09:45→20:02)
[2023-01-26] MEDS: Furosemide 40 MG Tab PO SCH (09:45)
[2023-01-26] MEDS: Tamsulosin 0.4 MG Cap.ER PO SCH (09:45)
[2023-01-26] MEDS: Topiramate 25 MG Tab PO SCH ×3 (09:45→20:05)
[2023-01-26] MEDS: amLODIPine 5 MG Tab PO SCH (09:45)
[2023-01-26] MEDS: QUEtiapine 100 MG Tab PO SCH ×2 (19:41→20:05)
[2023-01-27] MEDS: Heparin Sodium 5,000 Units/ML Vial SUBCUT SCH ×3 (05:19→21:38)
[2023-01-27] MEDS: Tamsulosin 0.4 MG Cap.ER PO SCH (08:48)
[2023-01-27] MEDS: metFORMIN 500 MG Tab PO SCH ×2 (08:51→21:40)
[2023-01-27] MEDS: glipiZIDE 5 MG Tab.ER PO SCH ×2 (08:51→21:40)
[2023-01-27] MEDS: Pantoprazole 40 MG Tab.CR PO SCH (08:51)
[2023-01-27] MEDS: amLODIPine 5 MG Tab PO SCH (08:52)
[2023-01-27] MEDS: Furosemide 40 MG Tab PO SCH (08:52)
[2023-01-27] MEDS: Topiramate 25 MG Tab PO SCH ×2 (08:52→21:41)
[2023-01-27] MEDS: Metoprolol Tartrate 100 MG Tab PO SCH (08:53)
[2023-01-27] MEDS: atorvaSTATin 40 MG Tab PO SCH (08:53)
[2023-01-27] MEDS: Docusate Sodium 100 MG Cap PO SCH ×2 (08:56→21:41)
[2023-01-27] MEDS: QUEtiapine 100 MG Tab PO SCH (21:39)
[2023-01-27] MEDS: Fluticasone NASAL Spray 16 GM Bottle NASBOTH PRN (21:41)
[2023-01-27] MEDS: Acetaminophen 325 MG Tab PO PRN (22:08)
[2023-01-28] MEDS: Heparin Sodium 5,000 Units/ML Vial SUBCUT SCH ×3 (05:41→21:51)
[2023-01-28] MEDS: atorvaSTATin 40 MG Tab PO SCH (08:59)
[2023-01-28] MEDS: amLODIPine 5 MG Tab PO SCH (08:59)
[2023-01-28] MEDS: Topiramate 25 MG Tab PO SCH ×2 (08:59→21:50)
[2023-01-28] MEDS: Tamsulosin 0.4 MG Cap.ER PO SCH (08:59)
[2023-01-28] MEDS: Pantoprazole 40 MG Tab.CR PO SCH (09:00)
[2023-01-28] MEDS: Furosemide 40 MG Tab PO SCH (09:00)
[2023-01-28] MEDS: Metoprolol Tartrate 100 MG Tab PO SCH (09:00)
[2023-01-28] MEDS: glipiZIDE 5 MG Tab.ER PO SCH ×2 (09:03→21:51)
[2023-01-28] MEDS: metFORMIN 500 MG Tab PO SCH ×2 (09:03→21:51)
[2023-01-28] MEDS: Docusate Sodium 100 MG Cap PO SCH ×3 (09:04→22:02)
[2023-01-28] MEDS: QUEtiapine 100 MG Tab PO SCH (21:50)
[2023-01-28] MEDS: Acetaminophen 325 MG Tab PO PRN (21:50)
[2023-01-28] MEDS: Fluticasone NASAL Spray 16 GM Bottle NASBOTH PRN (21:53)
[2023-01-29] MEDS: Heparin Sodium 5,000 Units/ML Vial SUBCUT SCH ×3 (06:29→21:06)
[2023-01-29] MEDS: metFORMIN 500 MG Tab PO SCH ×2 (09:29→21:11)
[2023-01-29] MEDS: glipiZIDE 5 MG Tab.ER PO SCH ×2 (09:30→21:10)
[2023-01-29] MEDS: atorvaSTATin 40 MG Tab PO SCH (09:30)
[2023-01-29] MEDS: Topiramate 100 MG Tab PO SCH ×2 (09:31→21:04)
[2023-01-29] MEDS: amLODIPine 5 MG Tab PO SCH (09:31)
[2023-01-29] MEDS: Tamsulosin 0.4 MG Cap.ER PO SCH (09:31)
[2023-01-29] MEDS: Pantoprazole 40 MG Tab.CR PO SCH (09:31)
[2023-01-29] MEDS: Furosemide 40 MG Tab PO SCH (09:32)
[2023-01-29] MEDS: Acetaminophen 325 MG Tab PO PRN ×2 (09:32→21:04)
[2023-01-29] MEDS: Metoprolol Tartrate 100 MG Tab PO SCH (09:32)
[2023-01-29] MEDS: Docusate Sodium 100 MG Cap PO SCH ×2 (09:35→21:05)
[2023-01-29] MEDS: QUEtiapine 100 MG Tab PO SCH (21:04)
[2023-01-29] MEDS: Fluticasone NASAL Spray 16 GM Bottle NASBOTH PRN (21:25)
[2023-01-30] MEDS: Docusate Sodium 100 MG Cap PO SCH ×3 (01:39→22:33)
[2023-01-30] MEDS: Heparin Sodium 5,000 Units/ML Vial SUBCUT SCH ×3 (04:38→22:36)
[2023-01-30] MEDS: Furosemide 40 MG Tab PO SCH (10:10)
[2023-01-30] MEDS: atorvaSTATin 40 MG Tab PO SCH (10:11)
[2023-01-30] MEDS: Pantoprazole 40 MG Tab.CR PO SCH (10:11)
[2023-01-30] MEDS: Metoprolol Tartrate 100 MG Tab PO SCH (10:11)
[2023-01-30] MEDS: Tamsulosin 0.4 MG Cap.ER PO SCH (10:11)
[2023-01-30] MEDS: glipiZIDE 5 MG Tab.ER PO SCH ×2 (10:12→22:35)
[2023-01-30] MEDS: Topiramate 100 MG Tab PO SCH ×2 (10:13→22:34)
[2023-01-30] MEDS: metFORMIN 500 MG Tab PO SCH ×2 (10:13→22:35)
[2023-01-30] MEDS: amLODIPine 5 MG Tab PO SCH (10:13)
[2023-01-30] MEDS: Acetaminophen 325 MG Tab PO PRN ×2 (10:26→22:33)
[2023-01-30] MEDS: Fluticasone NASAL Spray 16 GM Bottle NASBOTH PRN (10:26)
[2023-01-30] MEDS ORDERED: Nitroglycerin 0.4 MG Tab.SL SL ONE ×2 (11:20→13:29)
[2023-01-30 11:48] LABS: BASOPHILS ABSOLUTE AUTO 0.01 K/mm3 (0.01-0.08); BASOPHILS PERCENT AUTO 0.1 % (0.1-1.2); EOSINOPHILS ABSOLUTE AUTO 0.19 K/mm3 (0.04-0.54); HEMATOCRIT 43.2 % (40.1-51.0); HEMOGLOBIN 14.2 gm/dl (13.7-17.5); IMMATURE GRAN ABSOLUTE AUTO 0.03 K/mm3 (0.00-0.10); IMMATURE GRAN PERCENT AUTO 0.3 % (<=1.0); LYMPHOCYTES ABSOLUTE AUTO 1.07 K/mm3 (1.32-3.57); LYMPHOCYTES PERCENT AUTO 11.5 % (21.8-53.1); MEAN CORPUSCULAR HEMOGLOBIN 32.1 pg (25.7-32.2); MEAN CORPUSCULAR HGB CONC 32.9 g/dl (32.2-35.5); MEAN CORPUSCULAR VOLUME 97.7 fl (79.0-92.2); MEAN PLATELET VOLUME 10.8 fl (9.4-12.3); MONOCYTES ABSOLUTE AUTO 0.53 K/mm3 (0.30-0.82); MONOCYTES PERCENT AUTO 5.7 % (5.3-12.2); NEUTROPHILS ABSOLUTE AUTO 7.49 K/mm3 (1.78-5.38); NEUTROPHILS PERCENT AUTO 80.4 % (34.0-67.9); PLATELET COUNT,PLT 278 K/mm3 (163-337); RED BLOOD CELL COUNT 4.42 M/mm3 (4.63-6.08); WHITE BLOOD CELL COUNT,WBC 9.32 K/mm3 (4.23-9.07)
[2023-01-30 12:12] LABS: A/G RATIO 1.1 (1-2); ALBUMIN 3.2 g/dl (3.4-5.0); ANION GAP 14.1 (5-15); BILIRUBIN TOTAL 0.2 mg/dL (0.2-1.0); BUN/CREATININE RATIO 24.6 (14-18); CALCIUM 9.3 mg/dL (8.5-10.1); CREATININE 1.3 mg/dL (0.7-1.3); EST CRCL DRUG DOSING (CG) 46.61 mL/min; POTASSIUM,K 4.1 mEq/L (3.5-5.1); PROTEIN TOTAL,TP 6.2 g/dl (6.4-8.2)
[2023-01-30] MEDS ORDERED: LORazepam 0.5 MG Tab PO ONE (13:38)
[2023-01-30] MEDS: QUEtiapine 100 MG Tab PO SCH (22:35)
[2023-01-31] MEDS: Heparin Sodium 5,000 Units/ML Vial SUBCUT SCH ×3 (06:42→20:50)
[2023-01-31] MEDS: atorvaSTATin 40 MG Tab PO SCH (09:28)
[2023-01-31] MEDS: Tamsulosin 0.4 MG Cap.ER PO SCH (09:28)
[2023-01-31] MEDS: Metoprolol Tartrate 100 MG Tab PO SCH (09:28)
[2023-01-31] MEDS: Pantoprazole 40 MG Tab.CR PO SCH (09:29)
[2023-01-31] MEDS: Acetaminophen 325 MG Tab PO PRN ×2 (09:29→20:50)
[2023-01-31] MEDS: Topiramate 100 MG Tab PO SCH ×2 (09:30→20:49)
[2023-01-31] MEDS: metFORMIN 500 MG Tab PO SCH ×2 (09:30→20:49)
[2023-01-31] MEDS: glipiZIDE 5 MG Tab.ER PO SCH ×2 (09:30→20:48)
[2023-01-31] MEDS: Furosemide 40 MG Tab PO SCH (09:31)
[2023-01-31] MEDS: amLODIPine 5 MG Tab PO SCH (09:31)
[2023-01-31] MEDS: Fluticasone NASAL Spray 16 GM Bottle NASBOTH PRN (09:31)
[2023-01-31] MEDS: Docusate Sodium 100 MG Cap PO SCH ×2 (09:31→20:50)
[2023-01-31] MEDS: QUEtiapine 100 MG Tab PO SCH (20:48)
[2023-02-01] MEDS: Heparin Sodium 5,000 Units/ML Vial SUBCUT SCH ×3 (07:03→20:50)
[2023-02-01] MEDS: amLODIPine 5 MG Tab PO SCH (09:10)
[2023-02-01] MEDS: Tamsulosin 0.4 MG Cap.ER PO SCH (09:10)
[2023-02-01] MEDS: glipiZIDE 5 MG Tab.ER PO SCH ×2 (09:10→20:51)
[2023-02-01] MEDS: Furosemide 40 MG Tab PO SCH (09:10)
[2023-02-01] MEDS: metFORMIN 500 MG Tab PO SCH ×2 (09:11→20:50)
[2023-02-01] MEDS: atorvaSTATin 40 MG Tab PO SCH (09:11)
[2023-02-01] MEDS: Docusate Sodium 100 MG Cap PO SCH ×2 (09:11→20:50)
[2023-02-01] MEDS: Pantoprazole 40 MG Tab.CR PO SCH (09:11)
[2023-02-01] MEDS: Metoprolol Tartrate 100 MG Tab PO SCH (09:11)
[2023-02-01] MEDS: Topiramate 100 MG Tab PO SCH ×2 (09:11→20:50)
[2023-02-01] MEDS: Fluticasone NASAL Spray 16 GM Bottle NASBOTH PRN (13:09)
[2023-02-01] MEDS: QUEtiapine 100 MG Tab PO SCH (20:51)
[2023-02-01] MEDS: Acetaminophen 325 MG Tab PO PRN (20:55)
[2023-02-02] MEDS: Heparin Sodium 5,000 Units/ML Vial SUBCUT SCH ×3 (06:38→20:12)
[2023-02-02] MEDS: Topiramate 100 MG Tab PO SCH ×2 (08:42→20:14)
[2023-02-02] MEDS: Tamsulosin 0.4 MG Cap.ER PO SCH (08:42)
[2023-02-02] MEDS: atorvaSTATin 40 MG Tab PO SCH (08:42)
[2023-02-02] MEDS: Docusate Sodium 100 MG Cap PO SCH ×3 (08:42→20:15)
[2023-02-02] MEDS: amLODIPine 5 MG Tab PO SCH (08:42)
[2023-02-02] MEDS: metFORMIN 500 MG Tab PO SCH ×2 (08:43→20:14)
[2023-02-02] MEDS: Furosemide 40 MG Tab PO SCH (08:43)
[2023-02-02] MEDS: glipiZIDE 5 MG Tab.ER PO SCH ×2 (08:43→20:14)
[2023-02-02] MEDS: Metoprolol Tartrate 100 MG Tab PO SCH (08:43)
[2023-02-02] MEDS: Pantoprazole 40 MG Tab.CR PO SCH (08:44)
[2023-02-02] MEDS: QUEtiapine 100 MG Tab PO SCH (20:14)
[2023-02-02] MEDS: Acetaminophen 325 MG Tab PO PRN (20:21)
[2023-02-03] MEDS: Heparin Sodium 5,000 Units/ML Vial SUBCUT SCH ×3 (05:20→20:30)
[2023-02-03] MEDS: Tamsulosin 0.4 MG Cap.ER PO SCH (09:12)
[2023-02-03] MEDS: atorvaSTATin 40 MG Tab PO SCH (09:13)
[2023-02-03] MEDS: glipiZIDE 5 MG Tab.ER PO SCH ×2 (09:13→20:27)
[2023-02-03] MEDS: Furosemide 40 MG Tab PO SCH (09:15)
[2023-02-03] MEDS: Metoprolol Tartrate 100 MG Tab PO SCH (09:15)
[2023-02-03] MEDS: Docusate Sodium 100 MG Cap PO SCH ×3 (09:16→20:28)
[2023-02-03] MEDS: Pantoprazole 40 MG Tab.CR PO SCH (09:16)
[2023-02-03] MEDS: amLODIPine 5 MG Tab PO SCH (09:16)
[2023-02-03] MEDS: metFORMIN 500 MG Tab PO SCH ×2 (09:16→20:29)
[2023-02-03] MEDS: Topiramate 100 MG Tab PO SCH ×2 (09:16→20:27)
[2023-02-03] MEDS: Acetaminophen 325 MG Tab PO PRN ×2 (09:24→20:28)
[2023-02-03] MEDS: QUEtiapine 100 MG Tab PO SCH (20:27)
[2023-02-04] MEDS: Heparin Sodium 5,000 Units/ML Vial SUBCUT SCH ×3 (05:21→21:00)
[2023-02-04] MEDS: atorvaSTATin 40 MG Tab PO SCH (09:56)
[2023-02-04] MEDS: Metoprolol Tartrate 100 MG Tab PO SCH (10:01)
[2023-02-04] MEDS: Furosemide 40 MG Tab PO SCH (10:01)
[2023-02-04] MEDS: metFORMIN 500 MG Tab PO SCH ×2 (10:02→20:57)
[2023-02-04] MEDS: amLODIPine 5 MG Tab PO SCH (10:02)
[2023-02-04] MEDS: Tamsulosin 0.4 MG Cap.ER PO SCH (10:02)
[2023-02-04] MEDS: Topiramate 100 MG Tab PO SCH ×2 (10:03→20:49)
[2023-02-04] MEDS: Docusate Sodium 100 MG Cap PO SCH ×3 (10:03→20:47)
[2023-02-04] MEDS: glipiZIDE 5 MG Tab.ER PO SCH ×2 (10:03→20:57)
[2023-02-04] MEDS: Pantoprazole 40 MG Tab.CR PO SCH (10:03)
[2023-02-04] MEDS: Acetaminophen 325 MG Tab PO PRN (20:48)
[2023-02-04] MEDS: QUEtiapine 100 MG Tab PO SCH (20:48)
[2023-02-05] MEDS: Heparin Sodium 5,000 Units/ML Vial SUBCUT SCH ×3 (06:50→20:12)
[2023-02-05] MEDS: glipiZIDE 5 MG Tab.ER PO SCH ×2 (09:44→20:12)
[2023-02-05] MEDS: Topiramate 100 MG Tab PO SCH ×2 (09:44→20:12)
[2023-02-05] MEDS: Metoprolol Tartrate 100 MG Tab PO SCH (09:44)
[2023-02-05] MEDS: atorvaSTATin 40 MG Tab PO SCH (09:44)
[2023-02-05] MEDS: Docusate Sodium 100 MG Cap PO SCH ×2 (09:45→20:12)
[2023-02-05] MEDS: metFORMIN 500 MG Tab PO SCH ×2 (09:45→20:13)
[2023-02-05] MEDS: amLODIPine 5 MG Tab PO SCH (09:45)
[2023-02-05] MEDS: Furosemide 40 MG Tab PO SCH (09:45)
[2023-02-05] MEDS: Pantoprazole 40 MG Tab.CR PO SCH (09:45)
[2023-02-05] MEDS: Tamsulosin 0.4 MG Cap.ER PO SCH (09:45)
[2023-02-05] MEDS: QUEtiapine 100 MG Tab PO SCH (20:13)
[2023-02-05] MEDS: Acetaminophen 325 MG Tab PO PRN (20:21)
[2023-02-06] MEDS: Heparin Sodium 5,000 Units/ML Vial SUBCUT SCH ×3 (05:46→21:27)
[2023-02-06] MEDS: atorvaSTATin 40 MG Tab PO SCH (08:51)
[2023-02-06] MEDS: Acetaminophen 325 MG Tab PO PRN ×2 (08:51→21:28)
[2023-02-06] MEDS: Topiramate 100 MG Tab PO SCH ×2 (08:51→21:27)
[2023-02-06] MEDS: metFORMIN 500 MG Tab PO SCH ×2 (08:52→21:27)
[2023-02-06] MEDS: Metoprolol Tartrate 100 MG Tab PO SCH (08:53)
[2023-02-06] MEDS: Docusate Sodium 100 MG Cap PO SCH ×2 (08:53→21:26)
[2023-02-06] MEDS: Pantoprazole 40 MG Tab.CR PO SCH (08:53)
[2023-02-06] MEDS: amLODIPine 5 MG Tab PO SCH (08:53)
[2023-02-06] MEDS: glipiZIDE 5 MG Tab.ER PO SCH ×2 (08:54→21:27)
[2023-02-06] MEDS: Furosemide 40 MG Tab PO SCH (08:54)
[2023-02-06] MEDS: Fluticasone NASAL Spray 16 GM Bottle NASBOTH PRN (08:54)
[2023-02-06] MEDS: Tamsulosin 0.4 MG Cap.ER PO SCH (08:54)
[2023-02-06] MEDS: QUEtiapine 100 MG Tab PO SCH (21:26)
[2023-02-07] MEDS: Heparin Sodium 5,000 Units/ML Vial SUBCUT SCH ×3 (06:48→21:39)
[2023-02-07] MEDS: atorvaSTATin 40 MG Tab PO SCH (08:46)
[2023-02-07] MEDS: Docusate Sodium 100 MG Cap PO SCH ×2 (08:47→21:41)
[2023-02-07] MEDS: Pantoprazole 40 MG Tab.CR PO SCH (08:47)
[2023-02-07] MEDS: Topiramate 100 MG Tab PO SCH ×2 (08:47→21:41)
[2023-02-07] MEDS: amLODIPine 5 MG Tab PO SCH (08:48)
[2023-02-07] MEDS: Metoprolol Tartrate 100 MG Tab PO SCH (08:48)
[2023-02-07] MEDS: Furosemide 40 MG Tab PO SCH (08:48)
[2023-02-07] MEDS: glipiZIDE 5 MG Tab.ER PO SCH ×2 (08:49→21:41)
[2023-02-07] MEDS: Acetaminophen 325 MG Tab PO PRN ×2 (08:49→21:39)
[2023-02-07] MEDS: metFORMIN 500 MG Tab PO SCH ×2 (08:50→21:40)
[2023-02-07] MEDS: Fluticasone NASAL Spray 16 GM Bottle NASBOTH PRN (08:50)
[2023-02-07] MEDS: Tamsulosin 0.4 MG Cap.ER PO SCH (08:50)
[2023-02-07] MEDS: QUEtiapine 100 MG Tab PO SCH (21:40)
[2023-02-07] MEDS: Aluminum Hydroxide/Magnesium Hydroxide/Simethicone Susp 30 ML Cup PO PRN (21:41)
[2023-02-08] MEDS: Heparin Sodium 5,000 Units/ML Vial SUBCUT SCH ×3 (06:42→21:18)
[2023-02-08] MEDS: Docusate Sodium 100 MG Cap PO SCH ×2 (08:25→21:21)
[2023-02-08] MEDS: Acetaminophen 325 MG Tab PO PRN ×2 (08:25→21:20)
[2023-02-08] MEDS: Metoprolol Tartrate 100 MG Tab PO SCH (08:26)
[2023-02-08] MEDS: Pantoprazole 40 MG Tab.CR PO SCH (08:26)
[2023-02-08] MEDS: atorvaSTATin 40 MG Tab PO SCH (08:27)
[2023-02-08] MEDS: metFORMIN 500 MG Tab PO SCH ×2 (08:27→21:20)
[2023-02-08] MEDS: Tamsulosin 0.4 MG Cap.ER PO SCH (08:28)
[2023-02-08] MEDS: amLODIPine 5 MG Tab PO SCH (08:28)
[2023-02-08] MEDS: Topiramate 100 MG Tab PO SCH ×2 (08:28→21:18)
[2023-02-08] MEDS: glipiZIDE 5 MG Tab.ER PO SCH ×2 (08:28→21:20)
[2023-02-08] MEDS: Fluticasone NASAL Spray 16 GM Bottle NASBOTH PRN (08:29)
[2023-02-08] MEDS: Furosemide 40 MG Tab PO SCH (08:29)
[2023-02-08] MEDS: QUEtiapine 100 MG Tab PO SCH (21:20)
[2023-02-08] MEDS: Aluminum Hydroxide/Magnesium Hydroxide/Simethicone Susp 30 ML Cup PO PRN (21:24)
[2023-02-09] MEDS: Heparin Sodium 5,000 Units/ML Vial SUBCUT SCH ×3 (06:22→20:48)
[2023-02-09] MEDS: amLODIPine 5 MG Tab PO SCH (10:01)
[2023-02-09] MEDS: Tamsulosin 0.4 MG Cap.ER PO SCH (10:02)
[2023-02-09] MEDS: Metoprolol Tartrate 100 MG Tab PO SCH (10:02)
[2023-02-09] MEDS: metFORMIN 500 MG Tab PO SCH ×2 (10:02→20:48)
[2023-02-09] MEDS: Pantoprazole 40 MG Tab.CR PO SCH (10:02)
[2023-02-09] MEDS: glipiZIDE 5 MG Tab.ER PO SCH ×2 (10:02→20:48)
[2023-02-09] MEDS: Docusate Sodium 100 MG Cap PO SCH ×2 (10:02→20:49)
[2023-02-09] MEDS: Furosemide 40 MG Tab PO SCH (10:03)
[2023-02-09] MEDS: Topiramate 100 MG Tab PO SCH ×2 (10:03→20:48)
[2023-02-09] MEDS: atorvaSTATin 40 MG Tab PO SCH (10:03)
[2023-02-09] MEDS: Acetaminophen 325 MG Tab PO PRN ×2 (10:04→20:48)
[2023-02-09] MEDS: Aluminum Hydroxide/Magnesium Hydroxide/Simethicone Susp 30 ML Cup PO PRN (10:23)
[2023-02-09] MEDS: Cholecalciferol (Vitamin D3) 25 MCG Tab PO SCH (17:38)
[2023-02-09] MEDS: QUEtiapine 100 MG Tab PO SCH (20:48)
[2023-02-10] MEDS: Heparin Sodium 5,000 Units/ML Vial SUBCUT SCH ×3 (06:38→21:35)
[2023-02-10] MEDS: Acetaminophen 325 MG Tab PO PRN ×2 (07:30→21:44)
[2023-02-10] MEDS: Furosemide 40 MG Tab PO SCH (09:00)
[2023-02-10] MEDS: Tamsulosin 0.4 MG Cap.ER PO SCH (09:56)
[2023-02-10] MEDS: Topiramate 100 MG Tab PO SCH ×2 (09:56→21:35)
[2023-02-10] MEDS: metFORMIN 500 MG Tab PO SCH ×2 (09:57→21:35)
[2023-02-10] MEDS: Metoprolol Tartrate 100 MG Tab PO SCH (09:57)
[2023-02-10] MEDS: Docusate Sodium 100 MG Cap PO SCH ×3 (09:57→21:35)
[2023-02-10] MEDS: atorvaSTATin 40 MG Tab PO SCH (09:57)
[2023-02-10] MEDS: Cholecalciferol (Vitamin D3) 25 MCG Tab PO SCH (09:57)
[2023-02-10] MEDS: glipiZIDE 5 MG Tab.ER PO SCH ×2 (09:58→21:34)
[2023-02-10] MEDS: amLODIPine 5 MG Tab PO SCH (09:58)
[2023-02-10] MEDS: Pantoprazole 40 MG Tab.CR PO SCH (09:59)
[2023-02-10] MEDS: QUEtiapine 100 MG Tab PO SCH (21:34)
[2023-02-10] MEDS: Fluticasone NASAL Spray 16 GM Bottle NASBOTH PRN (21:45)
[2023-02-11] MEDS: Heparin Sodium 5,000 Units/ML Vial SUBCUT SCH ×3 (05:03→20:32)
[2023-02-11] MEDS: Acetaminophen 325 MG Tab PO PRN ×2 (11:27→20:31)
[2023-02-11] MEDS: Cholecalciferol (Vitamin D3) 25 MCG Tab PO SCH (11:27)
[2023-02-11] MEDS: Fluticasone NASAL Spray 16 GM Bottle NASBOTH PRN (11:27)
[2023-02-11] MEDS: Tamsulosin 0.4 MG Cap.ER PO SCH (11:28)
[2023-02-11] MEDS: atorvaSTATin 40 MG Tab PO SCH (11:28)
[2023-02-11] MEDS: Pantoprazole 40 MG Tab.CR PO SCH (11:28)
[2023-02-11] MEDS: Metoprolol Tartrate 100 MG Tab PO SCH (11:28)
[2023-02-11] MEDS: glipiZIDE 5 MG Tab.ER PO SCH ×2 (11:29→20:33)
[2023-02-11] MEDS: Topiramate 100 MG Tab PO SCH ×2 (11:29→20:33)
[2023-02-11] MEDS: Furosemide 40 MG Tab PO SCH (11:29)
[2023-02-11] MEDS: metFORMIN 500 MG Tab PO SCH ×2 (11:29→20:33)
[2023-02-11] MEDS: amLODIPine 5 MG Tab PO SCH (11:29)
[2023-02-11] MEDS: Docusate Sodium 100 MG Cap PO SCH ×2 (11:29→20:33)
[2023-02-11] MEDS: QUEtiapine 100 MG Tab PO SCH (20:33)
[2023-02-12] MEDS: Heparin Sodium 5,000 Units/ML Vial SUBCUT SCH ×3 (05:10→21:00)
[2023-02-12] MEDS: Metoprolol Tartrate 100 MG Tab PO SCH (08:41)
[2023-02-12] MEDS: Tamsulosin 0.4 MG Cap.ER PO SCH (08:41)
[2023-02-12] MEDS: atorvaSTATin 40 MG Tab PO SCH (08:41)
[2023-02-12] MEDS: Cholecalciferol (Vitamin D3) 25 MCG Tab PO SCH (08:41)
[2023-02-12] MEDS: Topiramate 100 MG Tab PO SCH ×2 (08:42→21:00)
[2023-02-12] MEDS: Pantoprazole 40 MG Tab.CR PO SCH (08:42)
[2023-02-12] MEDS: glipiZIDE 5 MG Tab.ER PO SCH ×2 (08:42→20:59)
[2023-02-12] MEDS: Furosemide 40 MG Tab PO SCH (08:42)
[2023-02-12] MEDS: amLODIPine 5 MG Tab PO SCH (08:42)
[2023-02-12] MEDS: metFORMIN 500 MG Tab PO SCH ×2 (08:42→21:00)
[2023-02-12] MEDS: Docusate Sodium 100 MG Cap PO SCH ×2 (08:46→21:00)
[2023-02-12] MEDS: Acetaminophen 325 MG Tab PO PRN ×2 (11:27→20:58)
[2023-02-12] MEDS: QUEtiapine 100 MG Tab PO SCH (20:59)
[2023-02-13] MEDS: Heparin Sodium 5,000 Units/ML Vial SUBCUT SCH ×3 (04:22→21:52)
[2023-02-13] MEDS: glipiZIDE 5 MG Tab.ER PO SCH ×2 (09:25→21:52)
[2023-02-13] MEDS: Furosemide 40 MG Tab PO SCH (09:25)
[2023-02-13] MEDS: Pantoprazole 40 MG Tab.CR PO SCH (09:26)
[2023-02-13] MEDS: atorvaSTATin 40 MG Tab PO SCH (09:26)
[2023-02-13] MEDS: metFORMIN 500 MG Tab PO SCH ×2 (09:26→21:53)
[2023-02-13] MEDS: Topiramate 100 MG Tab PO SCH ×2 (09:26→21:53)
[2023-02-13] MEDS: Cholecalciferol (Vitamin D3) 25 MCG Tab PO SCH (09:26)
[2023-02-13] MEDS: Tamsulosin 0.4 MG Cap.ER PO SCH (09:27)
[2023-02-13] MEDS: Docusate Sodium 100 MG Cap PO SCH ×2 (09:27→21:51)
[2023-02-13] MEDS: Metoprolol Tartrate 100 MG Tab PO SCH (09:32)
[2023-02-13] MEDS: amLODIPine 5 MG Tab PO SCH (09:33)
[2023-02-13] MEDS ORDERED: Nitroglycerin 0.4 MG Tab.SL SL ONE (09:50)
[2023-02-13] MEDS ORDERED: Aspirin 325 MG Tab.EC PO ONE (09:50)
[2023-02-13 10:18] LABS: BASOPHILS ABSOLUTE AUTO 0.02 K/mm3 (0.01-0.08); BASOPHILS PERCENT AUTO 0.2 % (0.1-1.2); EOSINOPHILS ABSOLUTE AUTO 0.23 K/mm3 (0.04-0.54); EOSINOPHILS PERCENT AUTO 2.3 (0.8-7.0); HEMATOCRIT 43.9 % (40.1-51.0); HEMOGLOBIN 14.4 gm/dl (13.7-17.5); IMMATURE GRAN ABSOLUTE AUTO 0.05 K/mm3 (0.00-0.10); IMMATURE GRAN PERCENT AUTO 0.5 % (<=1.0); LYMPHOCYTES PERCENT AUTO 16.2 % (21.8-53.1); MEAN CORPUSCULAR HEMOGLOBIN 32.5 pg (25.7-32.2); MEAN CORPUSCULAR HGB CONC 32.8 g/dl (32.2-35.5); MEAN CORPUSCULAR VOLUME 99.1 fl (79.0-92.2); MEAN PLATELET VOLUME 11.2 fl (9.4-12.3); MONOCYTES ABSOLUTE AUTO 0.65 K/mm3 (0.30-0.82); MONOCYTES PERCENT AUTO 6.6 % (5.3-12.2); NEUTROPHILS ABSOLUTE AUTO 7.32 K/mm3 (1.78-5.38); NEUTROPHILS PERCENT AUTO 74.2 % (34.0-67.9); PLATELET COUNT,PLT 265 K/mm3 (163-337); RED BLOOD CELL COUNT 4.43 M/mm3 (4.63-6.08); WHITE BLOOD CELL COUNT,WBC 9.87 K/mm3 (4.23-9.07)
[2023-02-13 10:48] LABS: A/G RATIO 1.1 (1-2); ALBUMIN 3.3 g/dl (3.4-5.0); ANION GAP 12.4 (5-15); BILIRUBIN TOTAL 0.2 mg/dL (0.2-1.0); BUN/CREATININE RATIO 28.7 (14-18); CALCIUM 9.3 mg/dL (8.5-10.1); CREATININE 1.5 mg/dL (0.7-1.3); EST CRCL DRUG DOSING (CG) 40.39 mL/min; MAGNESIUM 2.2 mg/dL (1.8-2.4); POTASSIUM,K 4.4 mEq/L (3.5-5.1); PROTEIN TOTAL,TP 6.4 g/dl (6.4-8.2)
[2023-02-13] MEDS: Acetaminophen 325 MG Tab PO PRN (21:51)
[2023-02-13] MEDS: QUEtiapine 100 MG Tab PO SCH (21:53)
[2023-02-14] MEDS: Heparin Sodium 5,000 Units/ML Vial SUBCUT SCH ×3 (05:55→22:18)
[2023-02-14] MEDS: Tamsulosin 0.4 MG Cap.ER PO SCH (09:16)
[2023-02-14] MEDS: atorvaSTATin 40 MG Tab PO SCH (09:16)
[2023-02-14] MEDS: Metoprolol Tartrate 100 MG Tab PO SCH (09:16)
[2023-02-14] MEDS: Cholecalciferol (Vitamin D3) 25 MCG Tab PO SCH (09:17)
[2023-02-14] MEDS: Docusate Sodium 100 MG Cap PO SCH ×2 (09:17→22:16)
[2023-02-14] MEDS: glipiZIDE 5 MG Tab.ER PO SCH ×2 (09:17→22:17)
[2023-02-14] MEDS: Furosemide 40 MG Tab PO SCH (09:17)
[2023-02-14] MEDS: Topiramate 100 MG Tab PO SCH ×2 (09:17→22:17)
[2023-02-14] MEDS: metFORMIN 500 MG Tab PO SCH ×2 (09:18→22:16)
[2023-02-14] MEDS: Pantoprazole 40 MG Tab.CR PO SCH (09:20)
[2023-02-14] MEDS: amLODIPine 5 MG Tab PO SCH (09:21)
[2023-02-14] MEDS: QUEtiapine 100 MG Tab PO SCH (22:16)
[2023-02-14] MEDS: Acetaminophen 325 MG Tab PO PRN (22:16)
[2023-02-15] MEDS: Heparin Sodium 5,000 Units/ML Vial SUBCUT SCH ×3 (04:46→21:58)
[2023-02-15] MEDS: Docusate Sodium 100 MG Cap PO SCH ×2 (09:43→21:58)
[2023-02-15] MEDS: Topiramate 100 MG Tab PO SCH ×2 (09:43→21:57)
[2023-02-15] MEDS: glipiZIDE 5 MG Tab.ER PO SCH ×2 (09:43→21:57)
[2023-02-15] MEDS: Metoprolol Tartrate 100 MG Tab PO SCH (09:43)
[2023-02-15] MEDS: metFORMIN 500 MG Tab PO SCH ×2 (09:43→21:57)
[2023-02-15] MEDS: atorvaSTATin 40 MG Tab PO SCH (09:44)
[2023-02-15] MEDS: amLODIPine 5 MG Tab PO SCH (09:44)
[2023-02-15] MEDS: Tamsulosin 0.4 MG Cap.ER PO SCH (09:44)
[2023-02-15] MEDS: Cholecalciferol (Vitamin D3) 25 MCG Tab PO SCH (09:44)
[2023-02-15] MEDS: Pantoprazole 40 MG Tab.CR PO SCH (09:44)
[2023-02-15] MEDS: Furosemide 40 MG Tab PO SCH (09:44)
[2023-02-15] MEDS: Aluminum Hydroxide/Magnesium Hydroxide/Simethicone Susp 30 ML Cup PO PRN (21:56)
[2023-02-15] MEDS: Acetaminophen 325 MG Tab PO PRN (21:56)
[2023-02-15] MEDS: QUEtiapine 100 MG Tab PO SCH (21:57)
[2023-02-15] MEDS: Gabapentin 100 MG Cap PO SCH (21:58)
[2023-02-16] MEDS: Heparin Sodium 5,000 Units/ML Vial SUBCUT SCH ×3 (05:13→21:41)
[2023-02-16] MEDS: Metoprolol Tartrate 100 MG Tab PO SCH (08:23)
[2023-02-16] MEDS: Tamsulosin 0.4 MG Cap.ER PO SCH (08:23)
[2023-02-16] MEDS: Acetaminophen 325 MG Tab PO PRN ×2 (08:23→14:00)
[2023-02-16] MEDS: metFORMIN 500 MG Tab PO SCH ×2 (08:24→21:39)
[2023-02-16] MEDS: Furosemide 40 MG Tab PO SCH (08:24)
[2023-02-16] MEDS: amLODIPine 5 MG Tab PO SCH (08:24)
[2023-02-16] MEDS: glipiZIDE 5 MG Tab.ER PO SCH ×2 (08:24→21:39)
[2023-02-16] MEDS: atorvaSTATin 40 MG Tab PO SCH (08:24)
[2023-02-16] MEDS: Docusate Sodium 100 MG Cap PO SCH ×3 (08:24→21:46)
[2023-02-16] MEDS: Cholecalciferol (Vitamin D3) 25 MCG Tab PO SCH (08:24)
[2023-02-16] MEDS: Topiramate 100 MG Tab PO SCH ×2 (08:25→21:23)
[2023-02-16] MEDS: Pantoprazole 40 MG Tab.CR PO SCH (08:25)
[2023-02-16] MEDS: Gabapentin 100 MG Cap PO SCH (21:21)
[2023-02-16] MEDS: QUEtiapine 100 MG Tab PO SCH (21:41)
[2023-02-17] MEDS: Heparin Sodium 5,000 Units/ML Vial SUBCUT SCH ×3 (07:20→22:05)
[2023-02-17] MEDS: Topiramate 100 MG Tab PO SCH ×2 (09:25→22:04)
[2023-02-17] MEDS: Docusate Sodium 100 MG Cap PO SCH ×2 (09:25→22:04)
[2023-02-17] MEDS: Cholecalciferol (Vitamin D3) 25 MCG Tab PO SCH (09:25)
[2023-02-17] MEDS: Pantoprazole 40 MG Tab.CR PO SCH (09:25)
[2023-02-17] MEDS: Tamsulosin 0.4 MG Cap.ER PO SCH (09:25)
[2023-02-17] MEDS: metFORMIN 500 MG Tab PO SCH ×2 (09:25→22:05)
[2023-02-17] MEDS: amLODIPine 5 MG Tab PO SCH (09:26)
[2023-02-17] MEDS: Furosemide 40 MG Tab PO SCH (09:32)
[2023-02-17] MEDS: Metoprolol Tartrate 100 MG Tab PO SCH (09:32)
[2023-02-17] MEDS: glipiZIDE 5 MG Tab.ER PO SCH ×2 (09:32→22:04)
[2023-02-17] MEDS: atorvaSTATin 40 MG Tab PO SCH (09:33)
[2023-02-17] MEDS: Gabapentin 100 MG Cap PO SCH (22:04)
[2023-02-17] MEDS: QUEtiapine 100 MG Tab PO SCH (22:05)
[2023-02-18] MEDS: Heparin Sodium 5,000 Units/ML Vial SUBCUT SCH ×3 (07:32→20:38)
[2023-02-18] MEDS: metFORMIN 500 MG Tab PO SCH ×2 (09:24→20:38)
[2023-02-18] MEDS: Tamsulosin 0.4 MG Cap.ER PO SCH (09:24)
[2023-02-18] MEDS: atorvaSTATin 40 MG Tab PO SCH (09:24)
[2023-02-18] MEDS: Pantoprazole 40 MG Tab.CR PO SCH (09:24)
[2023-02-18] MEDS: Furosemide 40 MG Tab PO SCH (09:24)
[2023-02-18] MEDS: Topiramate 100 MG Tab PO SCH ×2 (09:25→20:37)
[2023-02-18] MEDS: Metoprolol Tartrate 100 MG Tab PO SCH (09:25)
[2023-02-18] MEDS: amLODIPine 5 MG Tab PO SCH (09:25)
[2023-02-18] MEDS: glipiZIDE 5 MG Tab.ER PO SCH ×2 (09:25→20:36)
[2023-02-18] MEDS: Cholecalciferol (Vitamin D3) 25 MCG Tab PO SCH (09:25)
[2023-02-18] MEDS: Docusate Sodium 100 MG Cap PO SCH ×2 (09:26→20:40)
[2023-02-18] MEDS: Gabapentin 100 MG Cap PO SCH (20:35)
[2023-02-18] MEDS: Acetaminophen 325 MG Tab PO PRN (20:36)
[2023-02-18] MEDS: Fluticasone NASAL Spray 16 GM Bottle NASBOTH PRN (20:38)
[2023-02-18] MEDS: QUEtiapine 100 MG Tab PO SCH (20:38)
[2023-02-19] MEDS: Heparin Sodium 5,000 Units/ML Vial SUBCUT SCH ×3 (06:18→21:50)
[2023-02-19] MEDS: Furosemide 40 MG Tab PO SCH (08:17)
[2023-02-19] MEDS: Tamsulosin 0.4 MG Cap.ER PO SCH (08:18)
[2023-02-19] MEDS: atorvaSTATin 40 MG Tab PO SCH (08:18)
[2023-02-19] MEDS: Metoprolol Tartrate 100 MG Tab PO SCH (08:18)
[2023-02-19] MEDS: Docusate Sodium 100 MG Cap PO SCH ×2 (08:19→21:51)
[2023-02-19] MEDS: metFORMIN 500 MG Tab PO SCH ×2 (08:19→21:50)
[2023-02-19] MEDS: amLODIPine 5 MG Tab PO SCH (08:19)
[2023-02-19] MEDS: Cholecalciferol (Vitamin D3) 25 MCG Tab PO SCH (08:19)
[2023-02-19] MEDS: glipiZIDE 5 MG Tab.ER PO SCH ×2 (08:19→21:49)
[2023-02-19] MEDS: Topiramate 100 MG Tab PO SCH ×2 (08:19→21:50)
[2023-02-19] MEDS: Pantoprazole 40 MG Tab.CR PO SCH (08:19)
[2023-02-19] MEDS: Acetaminophen 325 MG Tab PO PRN ×2 (14:55→21:50)
[2023-02-19] MEDS: Gabapentin 100 MG Cap PO SCH (21:50)
[2023-02-19] MEDS: QUEtiapine 100 MG Tab PO SCH (21:50)
[2023-02-20] MEDS: Heparin Sodium 5,000 Units/ML Vial SUBCUT SCH ×3 (04:52→22:27)
[2023-02-20] MEDS: amLODIPine 5 MG Tab PO SCH (09:27)
[2023-02-20] MEDS: Docusate Sodium 100 MG Cap PO SCH ×2 (09:27→22:28)
[2023-02-20] MEDS: Cholecalciferol (Vitamin D3) 25 MCG Tab PO SCH (09:27)
[2023-02-20] MEDS: metFORMIN 500 MG Tab PO SCH ×2 (09:29→22:28)
[2023-02-20] MEDS: Topiramate 100 MG Tab PO SCH ×2 (09:30→22:28)
[2023-02-20] MEDS: Furosemide 40 MG Tab PO SCH (09:30)
[2023-02-20] MEDS: glipiZIDE 5 MG Tab.ER PO SCH ×2 (09:30→22:28)
[2023-02-20] MEDS: Tamsulosin 0.4 MG Cap.ER PO SCH (09:31)
[2023-02-20] MEDS: atorvaSTATin 40 MG Tab PO SCH (09:31)
[2023-02-20] MEDS: Metoprolol Tartrate 100 MG Tab PO SCH (09:31)
[2023-02-20] MEDS: Pantoprazole 40 MG Tab.CR PO SCH (09:31)
[2023-02-20] MEDS: Gabapentin 100 MG Cap PO SCH (22:27)
[2023-02-20] MEDS: Fluticasone NASAL Spray 16 GM Bottle NASBOTH PRN (22:27)
[2023-02-20] MEDS: Acetaminophen 325 MG Tab PO PRN (22:27)
[2023-02-20] MEDS: QUEtiapine 100 MG Tab PO SCH (22:27)
[2023-02-21] MEDS: Heparin Sodium 5,000 Units/ML Vial SUBCUT SCH ×3 (05:22→22:34)
[2023-02-21] MEDS: Pantoprazole 40 MG Tab.CR PO SCH (09:54)
[2023-02-21] MEDS: glipiZIDE 5 MG Tab.ER PO SCH ×2 (09:54→22:34)
[2023-02-21] MEDS: Cholecalciferol (Vitamin D3) 25 MCG Tab PO SCH (09:54)
[2023-02-21] MEDS: atorvaSTATin 40 MG Tab PO SCH (09:54)
[2023-02-21] MEDS: Topiramate 100 MG Tab PO SCH ×2 (09:54→22:34)
[2023-02-21] MEDS: Furosemide 40 MG Tab PO SCH (09:55)
[2023-02-21] MEDS: Acetaminophen 325 MG Tab PO PRN ×2 (09:55→22:35)
[2023-02-21] MEDS: Docusate Sodium 100 MG Cap PO SCH ×2 (09:55→22:35)
[2023-02-21] MEDS: Metoprolol Tartrate 100 MG Tab PO SCH (09:56)
[2023-02-21] MEDS: Tamsulosin 0.4 MG Cap.ER PO SCH (09:56)
[2023-02-21] MEDS: metFORMIN 500 MG Tab PO SCH ×2 (09:56→22:35)
[2023-02-21] MEDS: amLODIPine 5 MG Tab PO SCH (09:56)
[2023-02-21] MEDS: Gabapentin 100 MG Cap PO SCH (22:34)
[2023-02-21] MEDS: QUEtiapine 100 MG Tab PO SCH (22:34)
[2023-02-21] MEDS: Fluticasone NASAL Spray 16 GM Bottle NASBOTH PRN (22:34)
[2023-02-22] MEDS: Heparin Sodium 5,000 Units/ML Vial SUBCUT SCH ×3 (04:23→20:03)
[2023-02-22] MEDS: Topiramate 100 MG Tab PO SCH ×2 (08:14→20:05)
[2023-02-22] MEDS: Acetaminophen 325 MG Tab PO PRN ×2 (08:14→20:05)
[2023-02-22] MEDS: Metoprolol Tartrate 100 MG Tab PO SCH (08:14)
[2023-02-22] MEDS: amLODIPine 5 MG Tab PO SCH (08:14)
[2023-02-22] MEDS: atorvaSTATin 40 MG Tab PO SCH (08:15)
[2023-02-22] MEDS: Tamsulosin 0.4 MG Cap.ER PO SCH (08:15)
[2023-02-22] MEDS: Pantoprazole 40 MG Tab.CR PO SCH (08:15)
[2023-02-22] MEDS: glipiZIDE 5 MG Tab.ER PO SCH ×2 (08:15→20:04)
[2023-02-22] MEDS: Furosemide 40 MG Tab PO SCH (08:15)
[2023-02-22] MEDS: Docusate Sodium 100 MG Cap PO SCH ×2 (08:15→20:04)
[2023-02-22] MEDS: metFORMIN 500 MG Tab PO SCH ×2 (08:15→20:04)
[2023-02-22] MEDS: Cholecalciferol (Vitamin D3) 25 MCG Tab PO SCH (08:15)
[2023-02-22] MEDS: Gabapentin 100 MG Cap PO SCH (20:04)
[2023-02-22] MEDS: QUEtiapine 100 MG Tab PO SCH (20:05)
[2023-02-23] MEDS: Heparin Sodium 5,000 Units/ML Vial SUBCUT SCH ×3 (04:47→20:04)
[2023-02-23] MEDS: Cholecalciferol (Vitamin D3) 25 MCG Tab PO SCH (10:16)
[2023-02-23] MEDS: metFORMIN 500 MG Tab PO SCH ×2 (10:17→20:03)
[2023-02-23] MEDS: Docusate Sodium 100 MG Cap PO SCH ×2 (10:17→20:04)
[2023-02-23] MEDS: Furosemide 40 MG Tab PO SCH (10:17)
[2023-02-23] MEDS: Tamsulosin 0.4 MG Cap.ER PO SCH (10:17)
[2023-02-23] MEDS: Topiramate 100 MG Tab PO SCH ×2 (10:17→20:03)
[2023-02-23] MEDS: Metoprolol Tartrate 100 MG Tab PO SCH (10:17)
[2023-02-23] MEDS: Pantoprazole 40 MG Tab.CR PO SCH (10:18)
[2023-02-23] MEDS: glipiZIDE 5 MG Tab.ER PO SCH ×2 (10:18→20:03)
[2023-02-23] MEDS: amLODIPine 5 MG Tab PO SCH (10:18)
[2023-02-23] MEDS: atorvaSTATin 40 MG Tab PO SCH (10:18)
[2023-02-23] MEDS: Acetaminophen 325 MG Tab PO PRN (20:02)
[2023-02-23] MEDS: QUEtiapine 100 MG Tab PO SCH (20:03)
[2023-02-23] MEDS: Gabapentin 100 MG Cap PO SCH (20:03)
[2023-02-23] MEDS: Fluticasone NASAL Spray 16 GM Bottle NASBOTH PRN (20:04)
[2023-02-24] MEDS: Heparin Sodium 5,000 Units/ML Vial SUBCUT SCH ×3 (04:58→20:40)
[2023-02-24] MEDS: Pantoprazole 40 MG Tab.CR PO SCH (09:24)
[2023-02-24] MEDS: Metoprolol Tartrate 100 MG Tab PO SCH (09:24)
[2023-02-24] MEDS: metFORMIN 500 MG Tab PO SCH ×2 (09:25→20:35)
[2023-02-24] MEDS: atorvaSTATin 40 MG Tab PO SCH (09:25)
[2023-02-24] MEDS: Cholecalciferol (Vitamin D3) 25 MCG Tab PO SCH (09:25)
[2023-02-24] MEDS: amLODIPine 5 MG Tab PO SCH (09:26)
[2023-02-24] MEDS: Topiramate 100 MG Tab PO SCH ×2 (09:26→20:35)
[2023-02-24] MEDS: Docusate Sodium 100 MG Cap PO SCH ×2 (09:26→20:36)
[2023-02-24] MEDS: Tamsulosin 0.4 MG Cap.ER PO SCH (09:26)
[2023-02-24] MEDS: Furosemide 40 MG Tab PO SCH (09:26)
[2023-02-24] MEDS: glipiZIDE 5 MG Tab.ER PO SCH ×2 (09:26→20:35)
[2023-02-24] MEDS: Fluticasone NASAL Spray 16 GM Bottle NASBOTH PRN ×2 (09:28→20:40)
[2023-02-24] MEDS: Acetaminophen 325 MG Tab PO PRN ×2 (09:29→20:40)
[2023-02-24] MEDS: QUEtiapine 100 MG Tab PO SCH (20:35)
[2023-02-24] MEDS: Gabapentin 100 MG Cap PO SCH (20:36)
[2023-02-24] MEDS: Aluminum Hydroxide/Magnesium Hydroxide/Simethicone Susp 30 ML Cup PO PRN (20:39)
[2023-02-25] MEDS ORDERED: Acetaminophen/Butalbital/Caffeine 325-50-40 MG Tab PO ONE (04:16)
[2023-02-25] MEDS: Heparin Sodium 5,000 Units/ML Vial SUBCUT SCH ×3 (05:39→20:20)
[2023-02-25] MEDS: metFORMIN 500 MG Tab PO SCH ×2 (09:49→20:20)
[2023-02-25] MEDS: glipiZIDE 5 MG Tab.ER PO SCH ×2 (09:49→20:20)
[2023-02-25] MEDS: Topiramate 100 MG Tab PO SCH ×2 (09:50→20:20)
[2023-02-25] MEDS: atorvaSTATin 40 MG Tab PO SCH (09:50)
[2023-02-25] MEDS: Pantoprazole 40 MG Tab.CR PO SCH (09:50)
[2023-02-25] MEDS: Cholecalciferol (Vitamin D3) 25 MCG Tab PO SCH (09:51)
[2023-02-25] MEDS: Furosemide 40 MG Tab PO SCH (09:52)
[2023-02-25] MEDS: Docusate Sodium 100 MG Cap PO SCH ×2 (09:52→20:20)
[2023-02-25] MEDS: Tamsulosin 0.4 MG Cap.ER PO SCH (09:52)
[2023-02-25] MEDS: Metoprolol Tartrate 100 MG Tab PO SCH (09:53)
[2023-02-25] MEDS: amLODIPine 5 MG Tab PO SCH (09:53)
[2023-02-25] MEDS: QUEtiapine 100 MG Tab PO SCH (20:20)
[2023-02-25] MEDS: Gabapentin 100 MG Cap PO SCH (20:20)
[2023-02-25] MEDS: Acetaminophen 325 MG Tab PO PRN (20:26)
[2023-02-26] MEDS: Heparin Sodium 5,000 Units/ML Vial SUBCUT SCH ×3 (04:25→21:01)
[2023-02-26] MEDS: Topiramate 100 MG Tab PO SCH ×2 (09:48→21:00)
[2023-02-26] MEDS: glipiZIDE 5 MG Tab.ER PO SCH ×2 (09:48→21:00)
[2023-02-26] MEDS: Tamsulosin 0.4 MG Cap.ER PO SCH (09:48)
[2023-02-26] MEDS: Pantoprazole 40 MG Tab.CR PO SCH (09:48)
[2023-02-26] MEDS: metFORMIN 500 MG Tab PO SCH (09:48)
[2023-02-26] MEDS: Furosemide 40 MG Tab PO SCH (09:48)
[2023-02-26] MEDS: Cholecalciferol (Vitamin D3) 25 MCG Tab PO SCH (09:48)
[2023-02-26] MEDS: atorvaSTATin 40 MG Tab PO SCH (09:48)
[2023-02-26] MEDS: Docusate Sodium 100 MG Cap PO SCH ×2 (09:49→20:59)
[2023-02-26] MEDS: amLODIPine 5 MG Tab PO SCH (09:56)
[2023-02-26] MEDS: Acetaminophen 325 MG Tab PO PRN (09:56)
[2023-02-26] MEDS: Metoprolol Tartrate 100 MG Tab PO SCH (09:56)
[2023-02-26] MEDS: QUEtiapine 100 MG Tab PO SCH (21:00)
[2023-02-26] MEDS: Gabapentin 100 MG Cap PO SCH (21:00)
[2023-02-27] MEDS: metFORMIN 500 MG Tab PO SCH ×3 (07:15→21:25)
[2023-02-27] MEDS: Heparin Sodium 5,000 Units/ML Vial SUBCUT SCH ×3 (07:15→21:24)
[2023-02-27] MEDS: atorvaSTATin 40 MG Tab PO SCH (10:13)
[2023-02-27] MEDS: Tamsulosin 0.4 MG Cap.ER PO SCH (10:14)
[2023-02-27] MEDS: Cholecalciferol (Vitamin D3) 25 MCG Tab PO SCH (10:14)
[2023-02-27] MEDS: glipiZIDE 5 MG Tab.ER PO SCH ×2 (10:14→21:25)
[2023-02-27] MEDS: Docusate Sodium 100 MG Cap PO SCH ×2 (10:14→21:26)
[2023-02-27] MEDS: Metoprolol Tartrate 100 MG Tab PO SCH (10:14)
[2023-02-27] MEDS: Topiramate 100 MG Tab PO SCH ×2 (10:14→21:25)
[2023-02-27] MEDS: Pantoprazole 40 MG Tab.CR PO SCH (10:14)
[2023-02-27] MEDS: Acetaminophen 325 MG Tab PO PRN ×2 (10:15→21:25)
[2023-02-27] MEDS: Furosemide 40 MG Tab PO SCH (10:15)
[2023-02-27] MEDS: amLODIPine 5 MG Tab PO SCH (10:15)
[2023-02-27] MEDS: Aluminum Hydroxide/Magnesium Hydroxide/Simethicone Susp 30 ML Cup PO PRN (10:21)
[2023-02-27] MEDS: QUEtiapine 100 MG Tab PO SCH (21:26)
[2023-02-27] MEDS: Gabapentin 100 MG Cap PO SCH (21:26)
[2023-02-28] MEDS: Heparin Sodium 5,000 Units/ML Vial SUBCUT SCH ×3 (05:50→21:30)
[2023-02-28] MEDS: atorvaSTATin 40 MG Tab PO SCH (09:45)
[2023-02-28] MEDS: Tamsulosin 0.4 MG Cap.ER PO SCH (09:45)
[2023-02-28] MEDS: Cholecalciferol (Vitamin D3) 25 MCG Tab PO SCH (09:45)
[2023-02-28] MEDS: Metoprolol Tartrate 100 MG Tab PO SCH (09:46)
[2023-02-28] MEDS: Docusate Sodium 100 MG Cap PO SCH ×2 (09:46→21:31)
[2023-02-28] MEDS: Pantoprazole 40 MG Tab.CR PO SCH (09:48)
[2023-02-28] MEDS: metFORMIN 500 MG Tab PO SCH ×2 (09:48→21:31)
[2023-02-28] MEDS: Furosemide 40 MG Tab PO SCH (09:48)
[2023-02-28] MEDS: glipiZIDE 5 MG Tab.ER PO SCH ×2 (09:48→21:30)
[2023-02-28] MEDS: amLODIPine 5 MG Tab PO SCH (09:49)
[2023-02-28] MEDS: Acetaminophen 325 MG Tab PO PRN (09:49)
[2023-02-28] MEDS: Topiramate 100 MG Tab PO SCH ×3 (09:55→21:30)
[2023-02-28] MEDS: Gabapentin 100 MG Cap PO SCH (21:31)
[2023-02-28] MEDS: QUEtiapine 100 MG Tab PO SCH (21:31)
[2023-03-01] MEDS: Heparin Sodium 5,000 Units/ML Vial SUBCUT SCH ×3 (05:34→21:10)
[2023-03-01] MEDS: Docusate Sodium 100 MG Cap PO SCH ×2 (09:08→21:11)
[2023-03-01] MEDS: Pantoprazole 40 MG Tab.CR PO SCH (09:08)
[2023-03-01] MEDS: Furosemide 40 MG Tab PO SCH (09:08)
[2023-03-01] MEDS: Tamsulosin 0.4 MG Cap.ER PO SCH (09:08)
[2023-03-01] MEDS: Metoprolol Tartrate 100 MG Tab PO SCH (09:08)
[2023-03-01] MEDS: Topiramate 100 MG Tab PO SCH ×2 (09:09→21:11)
[2023-03-01] MEDS: amLODIPine 5 MG Tab PO SCH (09:09)
[2023-03-01] MEDS: Acetaminophen 325 MG Tab PO PRN (09:09)
[2023-03-01] MEDS: Cholecalciferol (Vitamin D3) 25 MCG Tab PO SCH (09:09)
[2023-03-01] MEDS: atorvaSTATin 40 MG Tab PO SCH (09:09)
[2023-03-01] MEDS: glipiZIDE 5 MG Tab.ER PO SCH ×2 (09:09→21:12)
[2023-03-01] MEDS: metFORMIN 500 MG Tab PO SCH ×2 (09:09→21:10)
[2023-03-01] MEDS: Gabapentin 100 MG Cap PO SCH (21:11)
[2023-03-01] MEDS: QUEtiapine 100 MG Tab PO SCH (21:12)
[2023-03-02] MEDS: Heparin Sodium 5,000 Units/ML Vial SUBCUT SCH ×3 (05:15→21:08)
[2023-03-02] MEDS: Acetaminophen 325 MG Tab PO PRN ×2 (09:49→21:06)
[2023-03-02] MEDS: Topiramate 100 MG Tab PO SCH ×2 (09:50→21:05)
[2023-03-02] MEDS: Pantoprazole 40 MG Tab.CR PO SCH (09:50)
[2023-03-02] MEDS: glipiZIDE 5 MG Tab.ER PO SCH ×2 (09:50→21:06)
[2023-03-02] MEDS: atorvaSTATin 40 MG Tab PO SCH (09:50)
[2023-03-02] MEDS: Furosemide 40 MG Tab PO SCH (09:51)
[2023-03-02] MEDS: Tamsulosin 0.4 MG Cap.ER PO SCH (09:51)
[2023-03-02] MEDS: Cholecalciferol (Vitamin D3) 25 MCG Tab PO SCH (09:51)
[2023-03-02] MEDS: metFORMIN 500 MG Tab PO SCH ×2 (09:51→21:07)
[2023-03-02] MEDS: Docusate Sodium 100 MG Cap PO SCH ×2 (09:52→21:05)
[2023-03-02] MEDS: Metoprolol Tartrate 100 MG Tab PO SCH (09:53)
[2023-03-02] MEDS: amLODIPine 5 MG Tab PO SCH (09:53)
[2023-03-02] MEDS ORDERED: Sennosides 8.6 MG Tab PO ONE (13:00)
[2023-03-02] MEDS: Gabapentin 100 MG Cap PO SCH (21:06)
[2023-03-02] MEDS: QUEtiapine 100 MG Tab PO SCH (21:06)
[2023-03-03] MEDS: Heparin Sodium 5,000 Units/ML Vial SUBCUT SCH ×3 (05:40→20:03)
[2023-03-03] MEDS: metFORMIN 500 MG Tab PO SCH ×2 (09:05→20:04)
[2023-03-03] MEDS: amLODIPine 5 MG Tab PO SCH (09:05)
[2023-03-03] MEDS: Furosemide 40 MG Tab PO SCH (09:05)
[2023-03-03] MEDS: Docusate Sodium 100 MG Cap PO SCH ×2 (09:06→20:04)
[2023-03-03] MEDS: Topiramate 100 MG Tab PO SCH ×2 (09:06→20:04)
[2023-03-03] MEDS: glipiZIDE 5 MG Tab.ER PO SCH ×2 (09:06→20:04)
[2023-03-03] MEDS: Tamsulosin 0.4 MG Cap.ER PO SCH (09:06)
[2023-03-03] MEDS: Cholecalciferol (Vitamin D3) 25 MCG Tab PO SCH (09:07)
[2023-03-03] MEDS: Metoprolol Tartrate 100 MG Tab PO SCH (09:07)
[2023-03-03] MEDS: atorvaSTATin 40 MG Tab PO SCH (09:07)
[2023-03-03] MEDS: Pantoprazole 40 MG Tab.CR PO SCH (09:07)
[2023-03-03] MEDS: Acetaminophen 325 MG Tab PO PRN ×3 (09:08→20:04)
[2023-03-03 11:10] LABS: HEMATOCRIT 43.9 % (40.1-51.0); HEMOGLOBIN 14.3 gm/dl (13.7-17.5); MEAN CORPUSCULAR HEMOGLOBIN 32.7 pg (25.7-32.2); MEAN CORPUSCULAR HGB CONC 32.6 g/dl (32.2-35.5); MEAN CORPUSCULAR VOLUME 100.5 fl (79.0-92.2); MEAN PLATELET VOLUME 10.9 fl (9.4-12.3); PLATELET COUNT,PLT 260 K/mm3 (163-337); RED BLOOD CELL COUNT 4.37 M/mm3 (4.63-6.08); WHITE BLOOD CELL COUNT,WBC 9.42 K/mm3 (4.23-9.07)
[2023-03-03 11:30] LABS: ALBUMIN 3.2 g/dl (3.4-5.0); ANION GAP 15.3 (5-15); BILIRUBIN TOTAL 0.2 mg/dL (0.2-1.0); BUN/CREATININE RATIO 25.7 (14-18); CALCIUM 9.3 mg/dL (8.5-10.1); CREATININE 1.4 mg/dL (0.7-1.3); EST CRCL DRUG DOSING (CG) 42.62 mL/min; MAGNESIUM 2.2 mg/dL (1.8-2.4); POTASSIUM,K 4.3 mEq/L (3.5-5.1); PROTEIN TOTAL,TP 6.5 g/dl (6.4-8.2)
[2023-03-03] MEDS: Gabapentin 100 MG Cap PO SCH (20:04)
[2023-03-03] MEDS: QUEtiapine 100 MG Tab PO SCH (20:04)
[2023-03-04] MEDS: Heparin Sodium 5,000 Units/ML Vial SUBCUT SCH ×3 (05:42→20:44)
[2023-03-04] MEDS: metFORMIN 500 MG Tab PO SCH ×2 (09:23→20:45)
[2023-03-04] MEDS: Topiramate 100 MG Tab PO SCH ×2 (09:23→20:44)
[2023-03-04] MEDS: Tamsulosin 0.4 MG Cap.ER PO SCH (09:24)
[2023-03-04] MEDS: atorvaSTATin 40 MG Tab PO SCH (09:24)
[2023-03-04] MEDS: Cholecalciferol (Vitamin D3) 25 MCG Tab PO SCH (09:24)
[2023-03-04] MEDS: amLODIPine 5 MG Tab PO SCH (09:24)
[2023-03-04] MEDS: Furosemide 40 MG Tab PO SCH (09:24)
[2023-03-04] MEDS: Docusate Sodium 100 MG Cap PO SCH ×2 (09:24→20:45)
[2023-03-04] MEDS: glipiZIDE 5 MG Tab.ER PO SCH ×2 (09:24→20:45)
[2023-03-04] MEDS: Metoprolol Tartrate 100 MG Tab PO SCH (09:25)
[2023-03-04] MEDS: Acetaminophen 325 MG Tab PO PRN ×2 (09:25→20:44)
[2023-03-04] MEDS: Pantoprazole 40 MG Tab.CR PO SCH (09:26)
[2023-03-04] MEDS: QUEtiapine 100 MG Tab PO SCH (20:44)
[2023-03-04] MEDS: Gabapentin 100 MG Cap PO SCH (20:44)
[2023-03-05] MEDS: Heparin Sodium 5,000 Units/ML Vial SUBCUT SCH ×3 (05:29→20:44)
[2023-03-05] MEDS: amLODIPine 5 MG Tab PO SCH (09:52)
[2023-03-05] MEDS: Furosemide 40 MG Tab PO SCH (09:52)
[2023-03-05] MEDS: Topiramate 100 MG Tab PO SCH ×2 (09:52→20:45)
[2023-03-05] MEDS: Cholecalciferol (Vitamin D3) 25 MCG Tab PO SCH (09:52)
[2023-03-05] MEDS: Pantoprazole 40 MG Tab.CR PO SCH (09:53)
[2023-03-05] MEDS: Docusate Sodium 100 MG Cap PO SCH ×2 (09:53→20:45)
[2023-03-05] MEDS: atorvaSTATin 40 MG Tab PO SCH (09:53)
[2023-03-05] MEDS: Metoprolol Tartrate 100 MG Tab PO SCH (09:53)
[2023-03-05] MEDS: metFORMIN 500 MG Tab PO SCH ×2 (09:53→20:44)
[2023-03-05] MEDS: Tamsulosin 0.4 MG Cap.ER PO SCH (09:54)
[2023-03-05] MEDS: glipiZIDE 5 MG Tab.ER PO SCH ×2 (09:54→20:45)
[2023-03-05] MEDS: Gabapentin 100 MG Cap PO SCH (20:44)
[2023-03-05] MEDS: QUEtiapine 100 MG Tab PO SCH (20:45)
[2023-03-05] MEDS: Acetaminophen 325 MG Tab PO PRN (20:45)
[2023-03-06] MEDS: Heparin Sodium 5,000 Units/ML Vial SUBCUT SCH ×3 (05:45→20:17)
[2023-03-06] MEDS: Docusate Sodium 100 MG Cap PO SCH ×2 (09:47→20:16)
[2023-03-06] MEDS: Tamsulosin 0.4 MG Cap.ER PO SCH (09:47)
[2023-03-06] MEDS: metFORMIN 500 MG Tab PO SCH ×2 (09:47→20:16)
[2023-03-06] MEDS: glipiZIDE 5 MG Tab.ER PO SCH ×2 (09:47→20:16)
[2023-03-06] MEDS: Cholecalciferol (Vitamin D3) 25 MCG Tab PO SCH (09:47)
[2023-03-06] MEDS: atorvaSTATin 40 MG Tab PO SCH (09:47)
[2023-03-06] MEDS: Topiramate 100 MG Tab PO SCH ×2 (09:47→20:14)
[2023-03-06] MEDS: Furosemide 40 MG Tab PO SCH (09:47)
[2023-03-06] MEDS: Pantoprazole 40 MG Tab.CR PO SCH (09:47)
[2023-03-06] MEDS: Metoprolol Tartrate 100 MG Tab PO SCH (09:57)
[2023-03-06] MEDS: amLODIPine 5 MG Tab PO SCH (09:57)
[2023-03-06] MEDS: Acetaminophen 325 MG Tab PO PRN ×2 (14:05→20:14)
[2023-03-06] MEDS: QUEtiapine 100 MG Tab PO SCH (20:14)
[2023-03-06] MEDS: Gabapentin 100 MG Cap PO SCH (20:16)
[2023-03-07] MEDS: Heparin Sodium 5,000 Units/ML Vial SUBCUT SCH ×3 (04:37→20:00)
[2023-03-07] MEDS: glipiZIDE 5 MG Tab.ER PO SCH ×2 (09:53→20:01)
[2023-03-07] MEDS: atorvaSTATin 40 MG Tab PO SCH (09:53)
[2023-03-07] MEDS: Cholecalciferol (Vitamin D3) 25 MCG Tab PO SCH (09:53)
[2023-03-07] MEDS: Tamsulosin 0.4 MG Cap.ER PO SCH (09:53)
[2023-03-07] MEDS: Pantoprazole 40 MG Tab.CR PO SCH (09:53)
[2023-03-07] MEDS: Metoprolol Tartrate 100 MG Tab PO SCH (09:54)
[2023-03-07] MEDS: Furosemide 40 MG Tab PO SCH (09:54)
[2023-03-07] MEDS: amLODIPine 5 MG Tab PO SCH (09:54)
[2023-03-07] MEDS: metFORMIN 500 MG Tab PO SCH ×2 (09:54→20:01)
[2023-03-07] MEDS: Topiramate 100 MG Tab PO SCH ×2 (09:54→20:01)
[2023-03-07] MEDS: Docusate Sodium 100 MG Cap PO SCH ×2 (09:54→20:01)
[2023-03-07] MEDS: Fluticasone NASAL Spray 16 GM Bottle NASBOTH PRN ×2 (09:55→20:08)
[2023-03-07] MEDS: Acetaminophen 325 MG Tab PO PRN (14:00)
[2023-03-07] MEDS: Gabapentin 100 MG Cap PO SCH (20:01)
[2023-03-07] MEDS: QUEtiapine 100 MG Tab PO SCH (20:01)
[2023-03-08] MEDS: Acetaminophen 325 MG Tab PO PRN ×2 (04:28→09:00)
[2023-03-08] MEDS: Heparin Sodium 5,000 Units/ML Vial SUBCUT SCH ×3 (04:30→21:08)
[2023-03-08] MEDS: metFORMIN 500 MG Tab PO SCH ×2 (08:59→21:08)
[2023-03-08] MEDS: glipiZIDE 5 MG Tab.ER PO SCH ×2 (08:59→21:08)
[2023-03-08] MEDS: amLODIPine 5 MG Tab PO SCH (09:00)
[2023-03-08] MEDS: Cholecalciferol (Vitamin D3) 25 MCG Tab PO SCH (09:00)
[2023-03-08] MEDS: Furosemide 40 MG Tab PO SCH (09:00)
[2023-03-08] MEDS: Docusate Sodium 100 MG Cap PO SCH ×2 (09:00→21:07)
[2023-03-08] MEDS: atorvaSTATin 40 MG Tab PO SCH (09:00)
[2023-03-08] MEDS: Pantoprazole 40 MG Tab.CR PO SCH (09:00)
[2023-03-08] MEDS: Topiramate 100 MG Tab PO SCH ×2 (09:00→21:07)
[2023-03-08] MEDS: Tamsulosin 0.4 MG Cap.ER PO SCH (09:00)
[2023-03-08] MEDS: Metoprolol Tartrate 100 MG Tab PO SCH (09:01)
[2023-03-08] MEDS: Gabapentin 100 MG Cap PO SCH (21:07)
[2023-03-08] MEDS: QUEtiapine 100 MG Tab PO SCH (21:08)
[2023-03-09] MEDS: Heparin Sodium 5,000 Units/ML Vial SUBCUT SCH ×3 (06:15→21:43)
[2023-03-09] MEDS: Docusate Sodium 100 MG Cap PO SCH ×2 (08:37→21:49)
[2023-03-09] MEDS: Furosemide 40 MG Tab PO SCH (08:37)
[2023-03-09] MEDS: atorvaSTATin 40 MG Tab PO SCH (08:37)
[2023-03-09] MEDS: glipiZIDE 5 MG Tab.ER PO SCH ×2 (08:37→21:43)
[2023-03-09] MEDS: Topiramate 100 MG Tab PO SCH ×2 (08:37→21:42)
[2023-03-09] MEDS: Metoprolol Tartrate 100 MG Tab PO SCH (08:37)
[2023-03-09] MEDS: Pantoprazole 40 MG Tab.CR PO SCH (08:37)
[2023-03-09] MEDS: Cholecalciferol (Vitamin D3) 25 MCG Tab PO SCH (08:37)
[2023-03-09] MEDS: Tamsulosin 0.4 MG Cap.ER PO SCH (08:38)
[2023-03-09] MEDS: Acetaminophen 325 MG Tab PO PRN ×2 (08:38→21:41)
[2023-03-09] MEDS: metFORMIN 500 MG Tab PO SCH ×2 (08:38→21:42)
[2023-03-09] MEDS: amLODIPine 5 MG Tab PO SCH (08:39)
[2023-03-09] MEDS: QUEtiapine 100 MG Tab PO SCH (21:42)
[2023-03-09] MEDS: Gabapentin 100 MG Cap PO SCH (21:42)
[2023-03-10] MEDS: Acetaminophen 325 MG Tab PO PRN ×3 (02:00→20:29)
[2023-03-10] MEDS: Heparin Sodium 5,000 Units/ML Vial SUBCUT SCH ×3 (06:24→20:27)
[2023-03-10] MEDS: Metoprolol Tartrate 100 MG Tab PO SCH (09:41)
[2023-03-10] MEDS: Furosemide 40 MG Tab PO SCH (09:42)
[2023-03-10] MEDS: Topiramate 100 MG Tab PO SCH ×2 (09:42→20:26)
[2023-03-10] MEDS: glipiZIDE 5 MG Tab.ER PO SCH ×2 (09:42→20:26)
[2023-03-10] MEDS: metFORMIN 500 MG Tab PO SCH ×2 (09:42→20:26)
[2023-03-10] MEDS: Cholecalciferol (Vitamin D3) 25 MCG Tab PO SCH (09:42)
[2023-03-10] MEDS: Docusate Sodium 100 MG Cap PO SCH ×3 (09:42→22:29)
[2023-03-10] MEDS: Tamsulosin 0.4 MG Cap.ER PO SCH (09:42)
[2023-03-10] MEDS: atorvaSTATin 40 MG Tab PO SCH (09:42)
[2023-03-10] MEDS: amLODIPine 5 MG Tab PO SCH (09:43)
[2023-03-10] MEDS: Pantoprazole 40 MG Tab.CR PO SCH (09:43)
[2023-03-10] MEDS: QUEtiapine 100 MG Tab PO SCH (20:26)
[2023-03-10] MEDS: Gabapentin 100 MG Cap PO SCH (20:27)
[2023-03-10] MEDS: Fluticasone NASAL Spray 16 GM Bottle NASBOTH PRN (20:30)
[2023-03-11] MEDS: Heparin Sodium 5,000 Units/ML Vial SUBCUT SCH ×3 (04:59→20:22)
[2023-03-11] MEDS: Acetaminophen 325 MG Tab PO PRN ×2 (06:19→20:22)
[2023-03-11] MEDS: atorvaSTATin 40 MG Tab PO SCH (08:44)
[2023-03-11] MEDS: Tamsulosin 0.4 MG Cap.ER PO SCH (08:44)
[2023-03-11] MEDS: Cholecalciferol (Vitamin D3) 25 MCG Tab PO SCH (08:44)
[2023-03-11] MEDS: Metoprolol Tartrate 100 MG Tab PO SCH (08:45)
[2023-03-11] MEDS: Topiramate 100 MG Tab PO SCH ×2 (08:46→20:22)
[2023-03-11] MEDS: metFORMIN 500 MG Tab PO SCH ×2 (08:47→20:21)
[2023-03-11] MEDS: Furosemide 40 MG Tab PO SCH (08:47)
[2023-03-11] MEDS: glipiZIDE 5 MG Tab.ER PO SCH ×2 (08:47→20:21)
[2023-03-11] MEDS: Pantoprazole 40 MG Tab.CR PO SCH (08:48)
[2023-03-11] MEDS: amLODIPine 5 MG Tab PO SCH (08:48)
[2023-03-11] MEDS: Docusate Sodium 100 MG Cap PO SCH ×2 (08:48→20:27)
[2023-03-11] MEDS: Gabapentin 100 MG Cap PO SCH (20:22)
[2023-03-11] MEDS: QUEtiapine 100 MG Tab PO SCH (20:22)
[2023-03-12] MEDS: Heparin Sodium 5,000 Units/ML Vial SUBCUT SCH ×3 (05:50→22:23)
[2023-03-12] MEDS: Fluticasone NASAL Spray 16 GM Bottle NASBOTH PRN ×2 (09:43→22:23)
[2023-03-12] MEDS: metFORMIN 500 MG Tab PO SCH ×2 (09:44→22:24)
[2023-03-12] MEDS: Tamsulosin 0.4 MG Cap.ER PO SCH (09:44)
[2023-03-12] MEDS: Docusate Sodium 100 MG Cap PO SCH ×2 (09:44→22:24)
[2023-03-12] MEDS: Furosemide 40 MG Tab PO SCH (09:45)
[2023-03-12] MEDS: Acetaminophen 325 MG Tab PO PRN (09:45)
[2023-03-12] MEDS: Cholecalciferol (Vitamin D3) 25 MCG Tab PO SCH (09:45)
[2023-03-12] MEDS: Pantoprazole 40 MG Tab.CR PO SCH (09:45)
[2023-03-12] MEDS: glipiZIDE 5 MG Tab.ER PO SCH ×2 (09:45→22:24)
[2023-03-12] MEDS: atorvaSTATin 40 MG Tab PO SCH (09:45)
[2023-03-12] MEDS: Topiramate 100 MG Tab PO SCH ×2 (09:45→22:24)
[2023-03-12] MEDS: Metoprolol Tartrate 100 MG Tab PO SCH (09:47)
[2023-03-12] MEDS: amLODIPine 5 MG Tab PO SCH (09:48)
[2023-03-12] MEDS: Gabapentin 100 MG Cap PO SCH (22:24)
[2023-03-12] MEDS: QUEtiapine 100 MG Tab PO SCH (22:24)
[2023-03-13] MEDS: Acetaminophen 325 MG Tab PO PRN ×3 (03:00→22:08)
[2023-03-13] MEDS: Heparin Sodium 5,000 Units/ML Vial SUBCUT SCH ×3 (05:09→22:08)
[2023-03-13] MEDS: amLODIPine 5 MG Tab PO SCH (10:14)
[2023-03-13] MEDS: atorvaSTATin 40 MG Tab PO SCH (10:15)
[2023-03-13] MEDS: Cholecalciferol (Vitamin D3) 25 MCG Tab PO SCH (10:15)
[2023-03-13] MEDS: Docusate Sodium 100 MG Cap PO SCH ×2 (10:15→22:06)
[2023-03-13] MEDS: Tamsulosin 0.4 MG Cap.ER PO SCH (10:15)
[2023-03-13] MEDS: Topiramate 100 MG Tab PO SCH ×2 (10:15→22:07)
[2023-03-13] MEDS: glipiZIDE 5 MG Tab.ER PO SCH ×2 (10:15→22:07)
[2023-03-13] MEDS: Furosemide 40 MG Tab PO SCH (10:16)
[2023-03-13] MEDS: Pantoprazole 40 MG Tab.CR PO SCH (10:16)
[2023-03-13] MEDS: metFORMIN 500 MG Tab PO SCH ×2 (10:16→22:05)
[2023-03-13] MEDS: Metoprolol Tartrate 100 MG Tab PO SCH (10:16)
[2023-03-13] MEDS: Gabapentin 100 MG Cap PO SCH (22:05)
[2023-03-13] MEDS: QUEtiapine 100 MG Tab PO SCH (22:05)
[2023-03-14] MEDS: Acetaminophen 325 MG Tab PO PRN ×3 (02:36→23:37)
[2023-03-14] MEDS: Heparin Sodium 5,000 Units/ML Vial SUBCUT SCH ×3 (06:34→21:48)
[2023-03-14] MEDS: Metoprolol Tartrate 100 MG Tab PO SCH (10:47)
[2023-03-14] MEDS: Pantoprazole 40 MG Tab.CR PO SCH (10:47)
[2023-03-14] MEDS: Topiramate 100 MG Tab PO SCH ×2 (10:47→21:48)
[2023-03-14] MEDS: metFORMIN 500 MG Tab PO SCH ×2 (10:48→21:48)
[2023-03-14] MEDS: Docusate Sodium 100 MG Cap PO SCH ×2 (10:48→21:48)
[2023-03-14] MEDS: Cholecalciferol (Vitamin D3) 25 MCG Tab PO SCH (10:48)
[2023-03-14] MEDS: atorvaSTATin 40 MG Tab PO SCH (10:48)
[2023-03-14] MEDS: Furosemide 40 MG Tab PO SCH (10:48)
[2023-03-14] MEDS: Tamsulosin 0.4 MG Cap.ER PO SCH (10:48)
[2023-03-14] MEDS: amLODIPine 5 MG Tab PO SCH (10:49)
[2023-03-14] MEDS: glipiZIDE 5 MG Tab.ER PO SCH ×2 (10:49→21:48)
[2023-03-14] MEDS: QUEtiapine 100 MG Tab PO SCH (21:48)
[2023-03-14] MEDS: Gabapentin 100 MG Cap PO SCH (21:48)
[2023-03-15] MEDS: Heparin Sodium 5,000 Units/ML Vial SUBCUT SCH ×3 (06:17→22:17)
[2023-03-15] MEDS: atorvaSTATin 40 MG Tab PO SCH (08:52)
[2023-03-15] MEDS: Acetaminophen 325 MG Tab PO PRN ×2 (08:52→22:15)
[2023-03-15] MEDS: glipiZIDE 5 MG Tab.ER PO SCH ×2 (08:53→22:14)
[2023-03-15] MEDS: Topiramate 100 MG Tab PO SCH ×2 (08:53→22:17)
[2023-03-15] MEDS: Cholecalciferol (Vitamin D3) 25 MCG Tab PO SCH (08:53)
[2023-03-15] MEDS: metFORMIN 500 MG Tab PO SCH ×2 (08:53→22:16)
[2023-03-15] MEDS: Tamsulosin 0.4 MG Cap.ER PO SCH (08:54)
[2023-03-15] MEDS: Furosemide 40 MG Tab PO SCH (08:54)
[2023-03-15] MEDS: Metoprolol Tartrate 100 MG Tab PO SCH (08:54)
[2023-03-15] MEDS: Docusate Sodium 100 MG Cap PO SCH ×3 (08:55→22:14)
[2023-03-15] MEDS: Pantoprazole 40 MG Tab.CR PO SCH (08:55)
[2023-03-15] MEDS: amLODIPine 5 MG Tab PO SCH (08:55)
[2023-03-15] MEDS: Gabapentin 100 MG Cap PO SCH (22:15)
[2023-03-15] MEDS: QUEtiapine 100 MG Tab PO SCH (22:16)
[2023-03-16] MEDS: Heparin Sodium 5,000 Units/ML Vial SUBCUT SCH ×3 (05:06→20:14)
[2023-03-16] MEDS: Acetaminophen 325 MG Tab PO PRN ×4 (05:06→22:59)
[2023-03-16] MEDS: Furosemide 40 MG Tab PO SCH (08:10)
[2023-03-16] MEDS: atorvaSTATin 40 MG Tab PO SCH (08:10)
[2023-03-16] MEDS: Metoprolol Tartrate 100 MG Tab PO SCH (08:10)
[2023-03-16] MEDS: Pantoprazole 40 MG Tab.CR PO SCH (08:10)
[2023-03-16] MEDS: glipiZIDE 5 MG Tab.ER PO SCH ×2 (08:10→20:16)
[2023-03-16] MEDS: Tamsulosin 0.4 MG Cap.ER PO SCH (08:11)
[2023-03-16] MEDS: Docusate Sodium 100 MG Cap PO SCH ×2 (08:11→20:17)
[2023-03-16] MEDS: Topiramate 100 MG Tab PO SCH ×2 (08:11→20:16)
[2023-03-16] MEDS: Cholecalciferol (Vitamin D3) 25 MCG Tab PO SCH (08:11)
[2023-03-16] MEDS: metFORMIN 500 MG Tab PO SCH ×2 (08:11→20:15)
[2023-03-16] MEDS: amLODIPine 5 MG Tab PO SCH (08:11)
[2023-03-16] MEDS ORDERED: Gabapentin 300 MG Cap PO ONE (13:14)
[2023-03-16] MEDS: QUEtiapine 100 MG Tab PO SCH (20:16)
[2023-03-16] MEDS: Gabapentin 300 MG Cap PO SCH (20:16)
[2023-03-17] MEDS: Heparin Sodium 5,000 Units/ML Vial SUBCUT SCH ×3 (04:20→20:00)
[2023-03-17] MEDS: Furosemide 40 MG Tab PO SCH (08:14)
[2023-03-17] MEDS: amLODIPine 5 MG Tab PO SCH (08:15)
[2023-03-17] MEDS: Metoprolol Tartrate 100 MG Tab PO SCH (08:15)
[2023-03-17] MEDS: Docusate Sodium 100 MG Cap PO SCH ×2 (08:15→20:01)
[2023-03-17] MEDS: Pantoprazole 40 MG Tab.CR PO SCH (08:15)
[2023-03-17] MEDS: glipiZIDE 5 MG Tab.ER PO SCH ×2 (08:15→20:01)
[2023-03-17] MEDS: atorvaSTATin 40 MG Tab PO SCH (08:16)
[2023-03-17] MEDS: Cholecalciferol (Vitamin D3) 25 MCG Tab PO SCH (08:16)
[2023-03-17] MEDS: Topiramate 100 MG Tab PO SCH ×2 (08:16→20:01)
[2023-03-17] MEDS: Tamsulosin 0.4 MG Cap.ER PO SCH (08:16)
[2023-03-17] MEDS: metFORMIN 500 MG Tab PO SCH ×2 (08:16→20:00)
[2023-03-17] MEDS: Acetaminophen 325 MG Tab PO PRN ×3 (08:16→20:01)
[2023-03-17] MEDS: Gabapentin 300 MG Cap PO SCH ×2 (08:20→20:01)
[2023-03-17] MEDS: QUEtiapine 100 MG Tab PO SCH (20:01)
[2023-03-17] MEDS: Fluticasone NASAL Spray 16 GM Bottle NASBOTH PRN (20:04)
[2023-03-18] MEDS: Heparin Sodium 5,000 Units/ML Vial SUBCUT SCH ×3 (04:28→20:00)
[2023-03-18] MEDS: atorvaSTATin 40 MG Tab PO SCH (08:21)
[2023-03-18] MEDS: Cholecalciferol (Vitamin D3) 25 MCG Tab PO SCH (08:21)
[2023-03-18] MEDS: metFORMIN 500 MG Tab PO SCH ×2 (08:22→20:00)
[2023-03-18] MEDS: Tamsulosin 0.4 MG Cap.ER PO SCH (08:22)
[2023-03-18] MEDS: amLODIPine 5 MG Tab PO SCH (08:22)
[2023-03-18] MEDS: Furosemide 40 MG Tab PO SCH (08:22)
[2023-03-18] MEDS: Topiramate 100 MG Tab PO SCH ×2 (08:23→20:01)
[2023-03-18] MEDS: Docusate Sodium 100 MG Cap PO SCH ×3 (08:23→20:06)
[2023-03-18] MEDS: Pantoprazole 40 MG Tab.CR PO SCH (08:23)
[2023-03-18] MEDS: glipiZIDE 5 MG Tab.ER PO SCH ×2 (08:23→20:01)
[2023-03-18] MEDS: Gabapentin 300 MG Cap PO SCH ×2 (08:23→20:01)
[2023-03-18] MEDS: Metoprolol Tartrate 100 MG Tab PO SCH (08:23)
[2023-03-18] MEDS: Acetaminophen 325 MG Tab PO PRN (20:01)
[2023-03-18] MEDS: QUEtiapine 100 MG Tab PO SCH (20:01)
[2023-03-19] MEDS: Heparin Sodium 5,000 Units/ML Vial SUBCUT SCH ×3 (04:34→21:23)
[2023-03-19] MEDS: Furosemide 40 MG Tab PO SCH (11:41)
[2023-03-19] MEDS: Acetaminophen 325 MG Tab PO PRN ×2 (11:42→21:23)
[2023-03-19] MEDS: Docusate Sodium 100 MG Cap PO SCH ×2 (11:42→21:25)
[2023-03-19] MEDS: amLODIPine 5 MG Tab PO SCH (11:42)
[2023-03-19] MEDS: atorvaSTATin 40 MG Tab PO SCH (11:43)
[2023-03-19] MEDS: Metoprolol Tartrate 100 MG Tab PO SCH (11:43)
[2023-03-19] MEDS: glipiZIDE 5 MG Tab.ER PO SCH ×2 (11:43→21:24)
[2023-03-19] MEDS: Cholecalciferol (Vitamin D3) 25 MCG Tab PO SCH (11:43)
[2023-03-19] MEDS: Pantoprazole 40 MG Tab.CR PO SCH (11:44)
[2023-03-19] MEDS: Gabapentin 300 MG Cap PO SCH ×2 (11:44→21:24)
[2023-03-19] MEDS: metFORMIN 500 MG Tab PO SCH ×2 (11:44→21:23)
[2023-03-19] MEDS: Topiramate 100 MG Tab PO SCH ×2 (11:44→21:24)
[2023-03-19] MEDS: Tamsulosin 0.4 MG Cap.ER PO SCH (11:45)
[2023-03-19] MEDS: QUEtiapine 100 MG Tab PO SCH (21:24)
[2023-03-19] MEDS: Fluticasone NASAL Spray 16 GM Bottle NASBOTH PRN (21:28)
[2023-03-20] MEDS: Heparin Sodium 5,000 Units/ML Vial SUBCUT SCH ×3 (05:11→21:14)
[2023-03-20] MEDS: Docusate Sodium 100 MG Cap PO SCH ×2 (10:12→21:18)
[2023-03-20] MEDS: metFORMIN 500 MG Tab PO SCH ×2 (10:12→21:16)
[2023-03-20] MEDS: Tamsulosin 0.4 MG Cap.ER PO SCH (10:12)
[2023-03-20] MEDS: glipiZIDE 5 MG Tab.ER PO SCH ×2 (10:13→21:16)
[2023-03-20] MEDS: atorvaSTATin 40 MG Tab PO SCH (10:13)
[2023-03-20] MEDS: Furosemide 40 MG Tab PO SCH (10:13)
[2023-03-20] MEDS: Metoprolol Tartrate 100 MG Tab PO SCH (10:14)
[2023-03-20] MEDS: Gabapentin 300 MG Cap PO SCH ×2 (10:15→21:16)
[2023-03-20] MEDS: amLODIPine 5 MG Tab PO SCH (10:15)
[2023-03-20] MEDS: Topiramate 100 MG Tab PO SCH ×2 (10:16→21:17)
[2023-03-20] MEDS: Pantoprazole 40 MG Tab.CR PO SCH (10:16)
[2023-03-20] MEDS: Cholecalciferol (Vitamin D3) 25 MCG Tab PO SCH (10:16)
[2023-03-20] MEDS: Fluticasone NASAL Spray 16 GM Bottle NASBOTH PRN (21:14)
[2023-03-20] MEDS: Acetaminophen 325 MG Tab PO PRN (21:15)
[2023-03-20] MEDS: QUEtiapine 100 MG Tab PO SCH (21:16)
[2023-03-21] MEDS: Acetaminophen 325 MG Tab PO PRN ×4 (01:33→21:18)
[2023-03-21] MEDS: Heparin Sodium 5,000 Units/ML Vial SUBCUT SCH ×3 (05:42→21:10)
[2023-03-21] MEDS: Cholecalciferol (Vitamin D3) 25 MCG Tab PO SCH (09:42)
[2023-03-21] MEDS: Furosemide 40 MG Tab PO SCH (09:42)
[2023-03-21] MEDS: Pantoprazole 40 MG Tab.CR PO SCH (09:42)
[2023-03-21] MEDS: amLODIPine 5 MG Tab PO SCH (09:42)
[2023-03-21] MEDS: glipiZIDE 5 MG Tab.ER PO SCH ×2 (09:42→21:11)
[2023-03-21] MEDS: Docusate Sodium 100 MG Cap PO SCH ×3 (09:43→21:11)
[2023-03-21] MEDS: metFORMIN 500 MG Tab PO SCH ×2 (09:43→21:11)
[2023-03-21] MEDS: Metoprolol Tartrate 100 MG Tab PO SCH (09:43)
[2023-03-21] MEDS: Topiramate 100 MG Tab PO SCH ×2 (09:43→21:11)
[2023-03-21] MEDS: atorvaSTATin 40 MG Tab PO SCH (09:43)
[2023-03-21] MEDS: Tamsulosin 0.4 MG Cap.ER PO SCH (09:43)
[2023-03-21] MEDS: Gabapentin 300 MG Cap PO SCH ×2 (09:46→21:11)
[2023-03-21] MEDS: QUEtiapine 100 MG Tab PO SCH (21:11)
[2023-03-21] MEDS: Fluticasone NASAL Spray 16 GM Bottle NASBOTH PRN (21:12)
[2023-03-22] MEDS: Acetaminophen 325 MG Tab PO PRN ×4 (03:32→20:42)
[2023-03-22] MEDS: Heparin Sodium 5,000 Units/ML Vial SUBCUT SCH ×3 (04:28→20:44)
[2023-03-22] MEDS: Furosemide 40 MG Tab PO SCH (11:48)
[2023-03-22] MEDS: Pantoprazole 40 MG Tab.CR PO SCH (11:48)
[2023-03-22] MEDS: Tamsulosin 0.4 MG Cap.ER PO SCH (11:48)
[2023-03-22] MEDS: glipiZIDE 5 MG Tab.ER PO SCH ×2 (11:48→20:43)
[2023-03-22] MEDS: metFORMIN 500 MG Tab PO SCH ×2 (11:48→20:44)
[2023-03-22] MEDS: Cholecalciferol (Vitamin D3) 25 MCG Tab PO SCH (11:48)
[2023-03-22] MEDS: Gabapentin 300 MG Cap PO SCH ×2 (11:48→20:43)
[2023-03-22] MEDS: Topiramate 100 MG Tab PO SCH ×2 (11:48→20:44)
[2023-03-22] MEDS: atorvaSTATin 40 MG Tab PO SCH (11:49)
[2023-03-22] MEDS: Docusate Sodium 100 MG Cap PO SCH ×2 (11:50→20:42)
[2023-03-22] MEDS: Metoprolol Tartrate 100 MG Tab PO SCH (13:17)
[2023-03-22] MEDS: amLODIPine 5 MG Tab PO SCH (13:17)
[2023-03-22] MEDS: QUEtiapine 100 MG Tab PO SCH (20:44)
[2023-03-22] MEDS: Fluticasone NASAL Spray 16 GM Bottle NASBOTH PRN (20:45)
[2023-03-23] MEDS: Heparin Sodium 5,000 Units/ML Vial SUBCUT SCH ×3 (06:09→21:03)
[2023-03-23] MEDS: Acetaminophen 325 MG Tab PO PRN ×2 (08:57→21:03)
[2023-03-23] MEDS: Tamsulosin 0.4 MG Cap.ER PO SCH (08:57)
[2023-03-23] MEDS: atorvaSTATin 40 MG Tab PO SCH (08:57)
[2023-03-23] MEDS: Pantoprazole 40 MG Tab.CR PO SCH (08:59)
[2023-03-23] MEDS: glipiZIDE 5 MG Tab.ER PO SCH ×2 (09:00→21:05)
[2023-03-23] MEDS: Furosemide 40 MG Tab PO SCH (09:00)
[2023-03-23] MEDS: amLODIPine 5 MG Tab PO SCH (09:02)
[2023-03-23] MEDS: Gabapentin 300 MG Cap PO SCH ×2 (09:02→21:04)
[2023-03-23] MEDS: Topiramate 100 MG Tab PO SCH ×2 (09:02→21:03)
[2023-03-23] MEDS: Cholecalciferol (Vitamin D3) 25 MCG Tab PO SCH (09:02)
[2023-03-23] MEDS: Metoprolol Tartrate 100 MG Tab PO SCH (09:05)
[2023-03-23] MEDS: Docusate Sodium 100 MG Cap PO SCH ×2 (09:07→21:05)
[2023-03-23] MEDS: metFORMIN 500 MG Tab PO SCH ×2 (09:07→21:05)
[2023-03-23] MEDS: QUEtiapine 100 MG Tab PO SCH (21:04)
[2023-03-24] MEDS: Acetaminophen 325 MG Tab PO PRN ×4 (00:59→21:46)
[2023-03-24] MEDS: Heparin Sodium 5,000 Units/ML Vial SUBCUT SCH ×3 (04:12→21:45)
[2023-03-24] MEDS: Furosemide 40 MG Tab PO SCH (08:21)
[2023-03-24] MEDS: Pantoprazole 40 MG Tab.CR PO SCH (08:22)
[2023-03-24] MEDS: amLODIPine 5 MG Tab PO SCH (08:22)
[2023-03-24] MEDS: metFORMIN 500 MG Tab PO SCH ×2 (08:22→21:46)
[2023-03-24] MEDS: atorvaSTATin 40 MG Tab PO SCH (08:22)
[2023-03-24] MEDS: Cholecalciferol (Vitamin D3) 25 MCG Tab PO SCH (08:22)
[2023-03-24] MEDS: glipiZIDE 5 MG Tab.ER PO SCH ×2 (08:22→21:45)
[2023-03-24] MEDS: Metoprolol Tartrate 100 MG Tab PO SCH (08:22)
[2023-03-24 08:23] LABS: APPEARANCE,URINE CLEAR (Clear); BILIRUBIN,URINE NEGATIVE (Negative); COLOR,URINE YELLOW (Yellow); GLUCOSE,URINE NEGATIVE (Negative); KETONES,URINE NEGATIVE (Negative); LEUKOCYTE ESTERASE,URINE 1+ (Negative); NITRITE,URINE NEGATIVE (Negative); OCCULT BLOOD,URINE NEGATIVE (Negative); PROTEIN,URINE NEGATIVE (Negative); UROBILINOGEN,URINE 0.2 (0.2-1.0)
[2023-03-24] MEDS: Tamsulosin 0.4 MG Cap.ER PO SCH (08:23)
[2023-03-24] MEDS: Topiramate 100 MG Tab PO SCH ×2 (08:23→21:46)
[2023-03-24] MEDS: Docusate Sodium 100 MG Cap PO SCH ×2 (08:23→21:50)
[2023-03-24] MEDS: Gabapentin 300 MG Cap PO SCH ×2 (08:23→21:46)
[2023-03-24 09:59] LABS: BACTERIA,URINE FEW /hpf (FEW); MUCUS,URINE NOT SEEN /hpf (FEW); RBC,URINE NOT SEEN /hpf (0-5); SQUAMOUS EPITHELIAL CELLS,UR 0-5 /hpf (0-5); WBC,URINE 0-5 /hpf (0-5)
[2023-03-24 10:05] LABS: BASOPHILS ABSOLUTE AUTO 0.02 K/mm3 (0.01-0.08); BASOPHILS PERCENT AUTO 0.2 % (0.1-1.2); EOSINOPHILS ABSOLUTE AUTO 0.24 K/mm3 (0.04-0.54); EOSINOPHILS PERCENT AUTO 2.6 (0.8-7.0); HEMATOCRIT 42.6 % (40.1-51.0); HEMOGLOBIN 13.7 gm/dl (13.7-17.5); IMMATURE GRAN ABSOLUTE AUTO 0.03 K/mm3 (0.00-0.10); IMMATURE GRAN PERCENT AUTO 0.3 % (<=1.0); LYMPHOCYTES ABSOLUTE AUTO 1.38 K/mm3 (1.32-3.57); LYMPHOCYTES PERCENT AUTO 14.9 % (21.8-53.1); MEAN CORPUSCULAR HEMOGLOBIN 32.4 pg (25.7-32.2); MEAN CORPUSCULAR HGB CONC 32.2 g/dl (32.2-35.5); MEAN CORPUSCULAR VOLUME 100.7 fl (79.0-92.2); MEAN PLATELET VOLUME 11.4 fl (9.4-12.3); MONOCYTES ABSOLUTE AUTO 0.61 K/mm3 (0.30-0.82); MONOCYTES PERCENT AUTO 6.6 % (5.3-12.2); NEUTROPHILS ABSOLUTE AUTO 7.01 K/mm3 (1.78-5.38); NEUTROPHILS PERCENT AUTO 75.4 % (34.0-67.9); PLATELET COUNT,PLT 280 K/mm3 (163-337); RED BLOOD CELL COUNT 4.23 M/mm3 (4.63-6.08); WHITE BLOOD CELL COUNT,WBC 9.29 K/mm3 (4.23-9.07)
[2023-03-24 10:33] LABS: ALBUMIN 3.3 g/dl (3.4-5.0); ANION GAP 14.9 (5-15); BILIRUBIN TOTAL 0.2 mg/dL (0.2-1.0); BUN/CREATININE RATIO 22.7 (14-18); CALCIUM 9.2 mg/dL (8.5-10.1); CREATININE 1.5 mg/dL (0.7-1.3); EST CRCL DRUG DOSING (CG) 39.78 mL/min; MAGNESIUM 1.7 mg/dL (1.8-2.4); POTASSIUM,K 3.9 mEq/L (3.5-5.1); PROTEIN TOTAL,TP 6.6 g/dl (6.4-8.2); URIC ACID 7.6 mg/dL (3.5-7.2)
[2023-03-24] MEDS ORDERED: Magnesium Oxide 400 MG Tab PO ONE (12:00)
[2023-03-24] MEDS ORDERED: Colchicine 0.6 MG Tab PO ONE ×2 (12:00→13:00)
[2023-03-24] MEDS: QUEtiapine 100 MG Tab PO SCH (21:46)
[2023-03-24] MEDS: Fluticasone NASAL Spray 16 GM Bottle NASBOTH PRN (21:47)
[2023-03-25] MEDS: Acetaminophen 325 MG Tab PO PRN ×3 (03:20→21:49)
[2023-03-25] MEDS: Heparin Sodium 5,000 Units/ML Vial SUBCUT SCH ×3 (06:35→21:47)
[2023-03-25 06:48] LABS: ANION GAP 12.7 (5-15); BUN/CREATININE RATIO 25.3 (14-18); CALCIUM 9.2 mg/dL (8.5-10.1); CREATININE 1.5 mg/dL (0.7-1.3); EST CRCL DRUG DOSING (CG) 39.78 mL/min; POTASSIUM,K 3.7 mEq/L (3.5-5.1)
[2023-03-25] MEDS: Colchicine 0.6 MG Tab PO SCH (09:00)
[2023-03-25] MEDS: Metoprolol Tartrate 100 MG Tab PO SCH (09:00)
[2023-03-25] MEDS: atorvaSTATin 40 MG Tab PO SCH (09:00)
[2023-03-25] MEDS: Gabapentin 300 MG Cap PO SCH ×2 (09:00→21:48)
[2023-03-25] MEDS: Magnesium Oxide 400 MG Tab PO SCH (09:01)
[2023-03-25] MEDS: amLODIPine 5 MG Tab PO SCH (09:01)
[2023-03-25] MEDS: Furosemide 40 MG Tab PO SCH (09:01)
[2023-03-25] MEDS: Tamsulosin 0.4 MG Cap.ER PO SCH (09:01)
[2023-03-25] MEDS: Pantoprazole 40 MG Tab.CR PO SCH (09:01)
[2023-03-25] MEDS: Docusate Sodium 100 MG Cap PO SCH ×2 (09:01→21:48)
[2023-03-25] MEDS: glipiZIDE 5 MG Tab.ER PO SCH ×2 (09:01→21:47)
[2023-03-25] MEDS: metFORMIN 500 MG Tab PO SCH ×2 (09:01→21:47)
[2023-03-25] MEDS: Topiramate 100 MG Tab PO SCH ×2 (09:01→21:48)
[2023-03-25] MEDS: Cholecalciferol (Vitamin D3) 25 MCG Tab PO SCH (09:01)
[2023-03-25] MEDS: QUEtiapine 100 MG Tab PO SCH (21:46)
[2023-03-25] MEDS: Fluticasone NASAL Spray 16 GM Bottle NASBOTH PRN (21:49)
[2023-03-26] MEDS: Acetaminophen 325 MG Tab PO PRN ×2 (03:47→09:21)
[2023-03-26] MEDS: Heparin Sodium 5,000 Units/ML Vial SUBCUT SCH ×4 (04:00→20:54)
[2023-03-26 06:43] LABS: ANION GAP 13.5 (5-15); CALCIUM 8.9 mg/dL (8.5-10.1); CREATININE 1.4 mg/dL (0.7-1.3); EST CRCL DRUG DOSING (CG) 42.62 mL/min; POTASSIUM,K 3.5 mEq/L (3.5-5.1)
[2023-03-26] MEDS: Colchicine 0.6 MG Tab PO SCH (09:21)
[2023-03-26] MEDS: Pantoprazole 40 MG Tab.CR PO SCH (09:21)
[2023-03-26] MEDS: atorvaSTATin 40 MG Tab PO SCH (09:21)
[2023-03-26] MEDS: Cholecalciferol (Vitamin D3) 25 MCG Tab PO SCH (09:21)
[2023-03-26] MEDS: amLODIPine 5 MG Tab PO SCH (09:21)
[2023-03-26] MEDS: Topiramate 100 MG Tab PO SCH ×2 (09:22→20:51)
[2023-03-26] MEDS: Metoprolol Tartrate 100 MG Tab PO SCH (09:22)
[2023-03-26] MEDS: Furosemide 40 MG Tab PO SCH (09:22)
[2023-03-26] MEDS: Magnesium Oxide 400 MG Tab PO SCH (09:23)
[2023-03-26] MEDS: Tamsulosin 0.4 MG Cap.ER PO SCH (09:23)
[2023-03-26] MEDS: Gabapentin 300 MG Cap PO SCH ×2 (09:23→20:53)
[2023-03-26] MEDS: glipiZIDE 5 MG Tab.ER PO SCH ×2 (09:23→20:53)
[2023-03-26] MEDS: metFORMIN 500 MG Tab PO SCH ×2 (09:23→20:51)
[2023-03-26] MEDS ORDERED: Docusate Sodium 100 MG Cap PO PRN (09:26)
[2023-03-26] MEDS: Docusate Sodium 100 MG Cap PO SCH (09:28)
[2023-03-26] MEDS: Acetaminophen 325 MG Tab PO SCH ×2 (18:04→18:49)
[2023-03-26] MEDS: QUEtiapine 100 MG Tab PO SCH (20:52)
[2023-03-27] MEDS: Acetaminophen 325 MG Tab PO SCH ×3 (01:52→17:44)
[2023-03-27] MEDS: Heparin Sodium 5,000 Units/ML Vial SUBCUT SCH ×3 (04:41→21:01)
[2023-03-27] MEDS: glipiZIDE 5 MG Tab.ER PO SCH ×2 (09:26→21:01)
[2023-03-27] MEDS: atorvaSTATin 40 MG Tab PO SCH (09:27)
[2023-03-27] MEDS: Tamsulosin 0.4 MG Cap.ER PO SCH (09:27)
[2023-03-27] MEDS: Topiramate 100 MG Tab PO SCH ×2 (09:27→21:01)
[2023-03-27] MEDS: Metoprolol Tartrate 100 MG Tab PO SCH (09:27)
[2023-03-27] MEDS: Magnesium Oxide 400 MG Tab PO SCH (09:27)
[2023-03-27] MEDS: Colchicine 0.6 MG Tab PO SCH (09:27)
[2023-03-27] MEDS: Pantoprazole 40 MG Tab.CR PO SCH (09:27)
[2023-03-27] MEDS: Cholecalciferol (Vitamin D3) 25 MCG Tab PO SCH (09:27)
[2023-03-27] MEDS: amLODIPine 5 MG Tab PO SCH (09:28)
[2023-03-27] MEDS: metFORMIN 500 MG Tab PO SCH ×2 (09:28→21:01)
[2023-03-27] MEDS: Gabapentin 300 MG Cap PO SCH ×2 (09:29→21:02)
[2023-03-27] MEDS: Furosemide 40 MG Tab PO SCH (09:29)
[2023-03-27] MEDS: QUEtiapine 100 MG Tab PO SCH (21:02)
[2023-03-28] MEDS: Acetaminophen 325 MG Tab PO SCH ×3 (02:21→18:27)
[2023-03-28] MEDS: Heparin Sodium 5,000 Units/ML Vial SUBCUT SCH ×3 (04:41→20:45)
[2023-03-28] MEDS: Fluticasone NASAL Spray 16 GM Bottle NASBOTH PRN (08:27)
[2023-03-28] MEDS: Furosemide 40 MG Tab PO SCH (08:28)
[2023-03-28] MEDS: atorvaSTATin 40 MG Tab PO SCH (08:28)
[2023-03-28] MEDS: metFORMIN 500 MG Tab PO SCH ×2 (08:28→20:44)
[2023-03-28] MEDS: Topiramate 100 MG Tab PO SCH ×2 (08:29→20:45)
[2023-03-28] MEDS: Colchicine 0.6 MG Tab PO SCH (08:29)
[2023-03-28] MEDS: Gabapentin 300 MG Cap PO SCH ×2 (08:30→20:44)
[2023-03-28] MEDS: Cholecalciferol (Vitamin D3) 25 MCG Tab PO SCH (08:30)
[2023-03-28] MEDS: Magnesium Oxide 400 MG Tab PO SCH (08:30)
[2023-03-28] MEDS: Tamsulosin 0.4 MG Cap.ER PO SCH (08:30)
[2023-03-28] MEDS: Pantoprazole 40 MG Tab.CR PO SCH (08:30)
[2023-03-28] MEDS: glipiZIDE 5 MG Tab.ER PO SCH ×2 (08:30→20:45)
[2023-03-28] MEDS: Metoprolol Tartrate 100 MG Tab PO SCH (08:32)
[2023-03-28] MEDS: amLODIPine 5 MG Tab PO SCH (08:33)
[2023-03-28] MEDS: QUEtiapine 100 MG Tab PO SCH (20:45)
[2023-03-29] MEDS: Acetaminophen 325 MG Tab PO SCH ×3 (02:14→17:21)
[2023-03-29] MEDS: Heparin Sodium 5,000 Units/ML Vial SUBCUT SCH ×3 (04:28→20:29)
[2023-03-29] MEDS: atorvaSTATin 40 MG Tab PO SCH (08:55)
[2023-03-29] MEDS: glipiZIDE 5 MG Tab.ER PO SCH ×2 (08:55→20:30)
[2023-03-29] MEDS: Tamsulosin 0.4 MG Cap.ER PO SCH (08:55)
[2023-03-29] MEDS: Magnesium Oxide 400 MG Tab PO SCH (08:55)
[2023-03-29] MEDS: Metoprolol Tartrate 100 MG Tab PO SCH (08:55)
[2023-03-29] MEDS: Gabapentin 300 MG Cap PO SCH ×2 (08:55→20:30)
[2023-03-29] MEDS: Furosemide 40 MG Tab PO SCH (08:58)
[2023-03-29] MEDS: Cholecalciferol (Vitamin D3) 25 MCG Tab PO SCH (08:59)
[2023-03-29] MEDS: metFORMIN 500 MG Tab PO SCH ×2 (08:59→20:30)
[2023-03-29] MEDS: amLODIPine 5 MG Tab PO SCH (08:59)
[2023-03-29] MEDS: Pantoprazole 40 MG Tab.CR PO SCH (08:59)
[2023-03-29] MEDS: Topiramate 100 MG Tab PO SCH ×2 (09:10→20:30)
[2023-03-29] MEDS: Colchicine 0.6 MG Tab PO SCH (09:10)
[2023-03-29] MEDS: QUEtiapine 100 MG Tab PO SCH (20:29)
[2023-03-30] MEDS: Acetaminophen 325 MG Tab PO SCH ×3 (02:18→18:14)
[2023-03-30] MEDS: Heparin Sodium 5,000 Units/ML Vial SUBCUT SCH ×3 (04:35→21:23)
[2023-03-30] MEDS: Acetaminophen 325 MG Tab PO PRN (05:27)
[2023-03-30] MEDS: Metoprolol Tartrate 100 MG Tab PO SCH (09:26)
[2023-03-30] MEDS: amLODIPine 5 MG Tab PO SCH (09:29)
[2023-03-30] MEDS: Colchicine 0.6 MG Tab PO SCH (09:29)
[2023-03-30] MEDS: Gabapentin 300 MG Cap PO SCH ×2 (09:29→21:24)
[2023-03-30] MEDS: atorvaSTATin 40 MG Tab PO SCH (09:29)
[2023-03-30] MEDS: Tamsulosin 0.4 MG Cap.ER PO SCH (09:29)
[2023-03-30] MEDS: Furosemide 40 MG Tab PO SCH (09:29)
[2023-03-30] MEDS: glipiZIDE 5 MG Tab.ER PO SCH ×2 (09:29→21:23)
[2023-03-30] MEDS: Pantoprazole 40 MG Tab.CR PO SCH (09:29)
[2023-03-30] MEDS: metFORMIN 500 MG Tab PO SCH ×2 (09:30→21:23)
[2023-03-30] MEDS: Cholecalciferol (Vitamin D3) 25 MCG Tab PO SCH (09:30)
[2023-03-30] MEDS: Topiramate 100 MG Tab PO SCH ×2 (09:31→21:23)
[2023-03-30] MEDS: Fluticasone NASAL Spray 16 GM Bottle NASBOTH PRN (21:22)
[2023-03-30] MEDS: QUEtiapine 100 MG Tab PO SCH (21:23)
[2023-03-31] MEDS: Acetaminophen 325 MG Tab PO SCH ×4 (02:10→21:42)
[2023-03-31] MEDS: Heparin Sodium 5,000 Units/ML Vial SUBCUT SCH ×3 (05:59→21:42)
[2023-03-31] MEDS: Colchicine 0.6 MG Tab PO SCH (09:36)
[2023-03-31] MEDS: Gabapentin 300 MG Cap PO SCH ×2 (09:36→20:24)
[2023-03-31] MEDS: Cholecalciferol (Vitamin D3) 25 MCG Tab PO SCH (09:36)
[2023-03-31] MEDS: Tamsulosin 0.4 MG Cap.ER PO SCH (09:36)
[2023-03-31] MEDS: atorvaSTATin 40 MG Tab PO SCH (09:36)
[2023-03-31] MEDS: Topiramate 100 MG Tab PO SCH ×2 (09:36→21:42)
[2023-03-31] MEDS: Metoprolol Tartrate 100 MG Tab PO SCH (09:37)
[2023-03-31] MEDS: amLODIPine 5 MG Tab PO SCH (09:37)
[2023-03-31] MEDS: metFORMIN 500 MG Tab PO SCH ×2 (09:37→20:24)
[2023-03-31] MEDS: Furosemide 40 MG Tab PO SCH (09:38)
[2023-03-31] MEDS: Pantoprazole 40 MG Tab.CR PO SCH (09:38)
[2023-03-31] MEDS: glipiZIDE 5 MG Tab.ER PO SCH ×2 (09:38→20:24)
[2023-03-31] MEDS: Fluticasone NASAL Spray 16 GM Bottle NASBOTH PRN (20:24)
[2023-03-31] MEDS: QUEtiapine 100 MG Tab PO SCH (20:24)
[2023-04-01] MEDS: Heparin Sodium 5,000 Units/ML Vial SUBCUT SCH ×3 (05:49→21:58)
[2023-04-01] MEDS: Acetaminophen 325 MG Tab PO SCH ×3 (05:49→21:58)
[2023-04-01] MEDS: Tamsulosin 0.4 MG Cap.ER PO SCH (09:58)
[2023-04-01] MEDS: Colchicine 0.6 MG Tab PO SCH (09:58)
[2023-04-01] MEDS: Cholecalciferol (Vitamin D3) 25 MCG Tab PO SCH (09:58)
[2023-04-01] MEDS: Gabapentin 300 MG Cap PO SCH ×2 (09:58→21:59)
[2023-04-01] MEDS: Furosemide 40 MG Tab PO SCH (09:59)
[2023-04-01] MEDS: glipiZIDE 5 MG Tab.ER PO SCH ×2 (09:59→21:58)
[2023-04-01] MEDS: Topiramate 100 MG Tab PO SCH ×2 (09:59→21:58)
[2023-04-01] MEDS: metFORMIN 500 MG Tab PO SCH ×2 (09:59→21:59)
[2023-04-01] MEDS: atorvaSTATin 40 MG Tab PO SCH (09:59)
[2023-04-01] MEDS: Pantoprazole 40 MG Tab.CR PO SCH (09:59)
[2023-04-01] MEDS: Metoprolol Tartrate 100 MG Tab PO SCH (09:59)
[2023-04-01] MEDS: amLODIPine 5 MG Tab PO SCH (10:01)
[2023-04-01] MEDS: QUEtiapine 100 MG Tab PO SCH (21:59)
[2023-04-02] MEDS: Acetaminophen 325 MG Tab PO SCH ×3 (06:51→21:15)
[2023-04-02] MEDS: Heparin Sodium 5,000 Units/ML Vial SUBCUT SCH ×3 (06:51→21:14)
[2023-04-02] MEDS: Cholecalciferol (Vitamin D3) 25 MCG Tab PO SCH (09:22)
[2023-04-02] MEDS: Pantoprazole 40 MG Tab.CR PO SCH (09:22)
[2023-04-02] MEDS: glipiZIDE 5 MG Tab.ER PO SCH ×2 (09:22→21:14)
[2023-04-02] MEDS: atorvaSTATin 40 MG Tab PO SCH (09:22)
[2023-04-02] MEDS: Metoprolol Tartrate 100 MG Tab PO SCH (09:22)
[2023-04-02] MEDS: metFORMIN 500 MG Tab PO SCH ×2 (09:22→21:14)
[2023-04-02] MEDS: Colchicine 0.6 MG Tab PO SCH (09:23)
[2023-04-02] MEDS: Furosemide 40 MG Tab PO SCH (09:23)
[2023-04-02] MEDS: Tamsulosin 0.4 MG Cap.ER PO SCH (09:23)
[2023-04-02] MEDS: Gabapentin 300 MG Cap PO SCH ×2 (09:23→21:14)
[2023-04-02] MEDS: Topiramate 100 MG Tab PO SCH ×2 (09:23→21:15)
[2023-04-02] MEDS: amLODIPine 5 MG Tab PO SCH (09:23)
[2023-04-02] MEDS: QUEtiapine 100 MG Tab PO SCH (21:15)
[2023-04-03] MEDS: Heparin Sodium 5,000 Units/ML Vial SUBCUT SCH ×3 (06:33→21:31)
[2023-04-03] MEDS: Acetaminophen 325 MG Tab PO SCH ×3 (06:34→21:31)
[2023-04-03] MEDS: Colchicine 0.6 MG Tab PO SCH (08:26)
[2023-04-03] MEDS: metFORMIN 500 MG Tab PO SCH ×2 (08:26→21:31)
[2023-04-03] MEDS: Metoprolol Tartrate 100 MG Tab PO SCH (08:26)
[2023-04-03] MEDS: Pantoprazole 40 MG Tab.CR PO SCH (08:26)
[2023-04-03] MEDS: Cholecalciferol (Vitamin D3) 25 MCG Tab PO SCH (08:26)
[2023-04-03] MEDS: Tamsulosin 0.4 MG Cap.ER PO SCH (08:26)
[2023-04-03] MEDS: atorvaSTATin 40 MG Tab PO SCH (08:26)
[2023-04-03] MEDS: amLODIPine 5 MG Tab PO SCH (08:27)
[2023-04-03] MEDS: Furosemide 40 MG Tab PO SCH (08:27)
[2023-04-03] MEDS: Topiramate 100 MG Tab PO SCH ×2 (08:27→21:31)
[2023-04-03] MEDS: glipiZIDE 5 MG Tab.ER PO SCH ×2 (08:27→21:31)
[2023-04-03] MEDS: Gabapentin 300 MG Cap PO SCH ×2 (08:27→21:31)
[2023-04-03] MEDS: Acetaminophen 325 MG Tab PO PRN (08:28)
[2023-04-03] MEDS: Fluticasone NASAL Spray 16 GM Bottle NASBOTH PRN (08:31)
[2023-04-03] MEDS: QUEtiapine 100 MG Tab PO SCH (21:31)
[2023-04-04] MEDS: Acetaminophen 325 MG Tab PO PRN (00:02)
[2023-04-04] MEDS: Acetaminophen 325 MG Tab PO SCH ×4 (05:40→22:14)
[2023-04-04] MEDS: Heparin Sodium 5,000 Units/ML Vial SUBCUT SCH ×4 (05:40→22:14)
[2023-04-04] MEDS: metFORMIN 500 MG Tab PO SCH ×2 (13:08→20:34)
[2023-04-04] MEDS: Colchicine 0.6 MG Tab PO SCH (13:08)
[2023-04-04] MEDS: Metoprolol Tartrate 100 MG Tab PO SCH (13:08)
[2023-04-04] MEDS: Topiramate 100 MG Tab PO SCH ×2 (13:08→20:34)
[2023-04-04] MEDS: Pantoprazole 40 MG Tab.CR PO SCH (13:08)
[2023-04-04] MEDS: Gabapentin 300 MG Cap PO SCH ×2 (13:08→20:34)
[2023-04-04] MEDS: glipiZIDE 5 MG Tab.ER PO SCH ×2 (13:09→20:34)
[2023-04-04] MEDS: atorvaSTATin 40 MG Tab PO SCH (13:09)
[2023-04-04] MEDS: Furosemide 40 MG Tab PO SCH (13:09)
[2023-04-04] MEDS: Tamsulosin 0.4 MG Cap.ER PO SCH (13:09)
[2023-04-04] MEDS: Cholecalciferol (Vitamin D3) 25 MCG Tab PO SCH (13:09)
[2023-04-04] MEDS: amLODIPine 5 MG Tab PO SCH (13:09)
[2023-04-04] MEDS: Fluticasone NASAL Spray 16 GM Bottle NASBOTH PRN (13:10)
[2023-04-04] MEDS: QUEtiapine 100 MG Tab PO SCH (20:35)
[2023-04-05] MEDS: Heparin Sodium 5,000 Units/ML Vial SUBCUT SCH ×3 (06:47→22:02)
[2023-04-05] MEDS: Acetaminophen 325 MG Tab PO SCH ×3 (06:47→22:02)
[2023-04-05] MEDS: Gabapentin 300 MG Cap PO SCH ×2 (10:08→22:02)
[2023-04-05] MEDS: glipiZIDE 5 MG Tab.ER PO SCH ×2 (10:08→22:02)
[2023-04-05] MEDS: Cholecalciferol (Vitamin D3) 25 MCG Tab PO SCH (10:08)
[2023-04-05] MEDS: Furosemide 40 MG Tab PO SCH (10:08)
[2023-04-05] MEDS: Tamsulosin 0.4 MG Cap.ER PO SCH (10:08)
[2023-04-05] MEDS: Topiramate 100 MG Tab PO SCH ×2 (10:08→22:01)
[2023-04-05] MEDS: Pantoprazole 40 MG Tab.CR PO SCH (10:09)
[2023-04-05] MEDS: atorvaSTATin 40 MG Tab PO SCH (10:09)
[2023-04-05] MEDS: metFORMIN 500 MG Tab PO SCH ×2 (10:09→22:01)
[2023-04-05] MEDS: Colchicine 0.6 MG Tab PO SCH (10:09)
[2023-04-05] MEDS: Metoprolol Tartrate 100 MG Tab PO SCH (10:09)
[2023-04-05] MEDS: amLODIPine 5 MG Tab PO SCH (10:12)
[2023-04-05] MEDS: Acetaminophen 325 MG Tab PO PRN (11:23)
[2023-04-05] MEDS: QUEtiapine 100 MG Tab PO SCH (22:00)
[2023-04-06] MEDS: Acetaminophen 325 MG Tab PO PRN (03:19)
[2023-04-06] MEDS: Acetaminophen 325 MG Tab PO SCH ×3 (06:05→21:07)
[2023-04-06] MEDS: Heparin Sodium 5,000 Units/ML Vial SUBCUT SCH ×3 (06:05→21:06)
[2023-04-06] MEDS: glipiZIDE 5 MG Tab.ER PO SCH ×2 (08:42→21:07)
[2023-04-06] MEDS: Colchicine 0.6 MG Tab PO SCH (08:42)
[2023-04-06] MEDS: atorvaSTATin 40 MG Tab PO SCH (08:42)
[2023-04-06] MEDS: Gabapentin 300 MG Cap PO SCH ×2 (08:42→21:07)
[2023-04-06] MEDS: Tamsulosin 0.4 MG Cap.ER PO SCH (08:43)
[2023-04-06] MEDS: Topiramate 100 MG Tab PO SCH ×2 (08:43→21:07)
[2023-04-06] MEDS: metFORMIN 500 MG Tab PO SCH ×2 (08:43→21:07)
[2023-04-06] MEDS: Pantoprazole 40 MG Tab.CR PO SCH (08:43)
[2023-04-06] MEDS: Furosemide 40 MG Tab PO SCH (08:43)
[2023-04-06] MEDS: amLODIPine 5 MG Tab PO SCH (08:43)
[2023-04-06] MEDS: Metoprolol Tartrate 100 MG Tab PO SCH (08:44)
[2023-04-06] MEDS: Cholecalciferol (Vitamin D3) 25 MCG Tab PO SCH (08:44)
[2023-04-06] MEDS: QUEtiapine 100 MG Tab PO SCH (21:08)
[2023-04-07] MEDS: Acetaminophen 325 MG Tab PO PRN (03:31)
[2023-04-07] MEDS: Heparin Sodium 5,000 Units/ML Vial SUBCUT SCH ×3 (06:13→21:01)
[2023-04-07] MEDS: Acetaminophen 325 MG Tab PO SCH ×3 (06:15→21:00)
[2023-04-07] MEDS: amLODIPine 5 MG Tab PO SCH (08:44)
[2023-04-07] MEDS: Colchicine 0.6 MG Tab PO SCH (08:44)
[2023-04-07] MEDS: Topiramate 100 MG Tab PO SCH ×2 (08:44→20:09)
[2023-04-07] MEDS: Furosemide 40 MG Tab PO SCH (08:49)
[2023-04-07] MEDS: Gabapentin 300 MG Cap PO SCH ×2 (08:49→20:09)
[2023-04-07] MEDS: Metoprolol Tartrate 100 MG Tab PO SCH (08:49)
[2023-04-07] MEDS: atorvaSTATin 40 MG Tab PO SCH (08:49)
[2023-04-07] MEDS: Tamsulosin 0.4 MG Cap.ER PO SCH (08:50)
[2023-04-07] MEDS: Cholecalciferol (Vitamin D3) 25 MCG Tab PO SCH (08:50)
[2023-04-07] MEDS: glipiZIDE 5 MG Tab.ER PO SCH ×2 (08:50→20:09)
[2023-04-07] MEDS: Pantoprazole 40 MG Tab.CR PO SCH (08:51)
[2023-04-07] MEDS: metFORMIN 500 MG Tab PO SCH ×2 (08:51→20:09)
[2023-04-07] MEDS: QUEtiapine 100 MG Tab PO SCH (20:09)
[2023-04-08] MEDS: Heparin Sodium 5,000 Units/ML Vial SUBCUT SCH ×3 (05:08→21:16)
[2023-04-08] MEDS: Acetaminophen 325 MG Tab PO SCH ×4 (06:48→21:47)
[2023-04-08] MEDS: Pantoprazole 40 MG Tab.CR PO SCH (09:41)
[2023-04-08] MEDS: Furosemide 40 MG Tab PO SCH (09:41)
[2023-04-08] MEDS: Topiramate 100 MG Tab PO SCH ×2 (09:41→20:01)
[2023-04-08] MEDS: Metoprolol Tartrate 100 MG Tab PO SCH (09:41)
[2023-04-08] MEDS: atorvaSTATin 40 MG Tab PO SCH (09:41)
[2023-04-08] MEDS: metFORMIN 500 MG Tab PO SCH ×2 (09:41→20:00)
[2023-04-08] MEDS: Colchicine 0.6 MG Tab PO SCH (09:41)
[2023-04-08] MEDS: Tamsulosin 0.4 MG Cap.ER PO SCH (09:41)
[2023-04-08] MEDS: Gabapentin 300 MG Cap PO SCH ×2 (09:42→20:01)
[2023-04-08] MEDS: glipiZIDE 5 MG Tab.ER PO SCH ×2 (09:42→20:01)
[2023-04-08] MEDS: Cholecalciferol (Vitamin D3) 25 MCG Tab PO SCH (09:42)
[2023-04-08] MEDS: amLODIPine 5 MG Tab PO SCH (09:42)
[2023-04-08] MEDS ORDERED: Loperamide 2 MG Cap PO PRN (14:16)
[2023-04-08] MEDS ORDERED: Loperamide 2 MG Cap PO ONE (14:30)
[2023-04-08] MEDS: QUEtiapine 100 MG Tab PO SCH (20:00)
[2023-04-08] MEDS: Fluticasone NASAL Spray 16 GM Bottle NASBOTH PRN (20:02)
[2023-04-09] MEDS: Heparin Sodium 5,000 Units/ML Vial SUBCUT SCH ×3 (06:50→23:04)
[2023-04-09] MEDS: Acetaminophen 325 MG Tab PO SCH ×3 (06:53→23:01)
[2023-04-09] MEDS: atorvaSTATin 40 MG Tab PO SCH (09:33)
[2023-04-09] MEDS: Gabapentin 300 MG Cap PO SCH ×2 (09:33→20:18)
[2023-04-09] MEDS: Topiramate 100 MG Tab PO SCH ×2 (09:33→20:18)
[2023-04-09] MEDS: Metoprolol Tartrate 100 MG Tab PO SCH (09:33)
[2023-04-09] MEDS: amLODIPine 5 MG Tab PO SCH (09:33)
[2023-04-09] MEDS: Colchicine 0.6 MG Tab PO SCH (09:33)
[2023-04-09] MEDS: Furosemide 40 MG Tab PO SCH (09:33)
[2023-04-09] MEDS: glipiZIDE 5 MG Tab.ER PO SCH ×2 (09:34→20:20)
[2023-04-09] MEDS: Tamsulosin 0.4 MG Cap.ER PO SCH (09:34)
[2023-04-09] MEDS: Cholecalciferol (Vitamin D3) 25 MCG Tab PO SCH (09:34)
[2023-04-09] MEDS: metFORMIN 500 MG Tab PO SCH ×2 (09:34→20:20)
[2023-04-09] MEDS: Pantoprazole 40 MG Tab.CR PO SCH (09:34)
[2023-04-09] MEDS: QUEtiapine 100 MG Tab PO SCH (20:18)
[2023-04-10] MEDS: Heparin Sodium 5,000 Units/ML Vial SUBCUT SCH ×3 (06:04→21:01)
[2023-04-10] MEDS: Acetaminophen 325 MG Tab PO SCH ×3 (09:00→21:01)
[2023-04-10] MEDS: amLODIPine 5 MG Tab PO SCH (09:01)
[2023-04-10] MEDS: Cholecalciferol (Vitamin D3) 25 MCG Tab PO SCH (09:01)
[2023-04-10] MEDS: atorvaSTATin 40 MG Tab PO SCH (09:01)
[2023-04-10] MEDS: Tamsulosin 0.4 MG Cap.ER PO SCH (09:01)
[2023-04-10] MEDS: metFORMIN 500 MG Tab PO SCH ×2 (09:01→21:00)
[2023-04-10] MEDS: Pantoprazole 40 MG Tab.CR PO SCH (09:01)
[2023-04-10] MEDS: Furosemide 40 MG Tab PO SCH (09:01)
[2023-04-10] MEDS: glipiZIDE 5 MG Tab.ER PO SCH ×2 (09:01→21:00)
[2023-04-10] MEDS: Colchicine 0.6 MG Tab PO SCH (09:01)
[2023-04-10] MEDS: Metoprolol Tartrate 100 MG Tab PO SCH (09:06)
[2023-04-10] MEDS: Topiramate 100 MG Tab PO SCH ×2 (09:06→21:00)
[2023-04-10] MEDS: Gabapentin 300 MG Cap PO SCH ×2 (09:06→21:00)
[2023-04-10] MEDS: QUEtiapine 100 MG Tab PO SCH (20:58)
[2023-04-11] MEDS: Heparin Sodium 5,000 Units/ML Vial SUBCUT SCH ×3 (05:04→21:02)
[2023-04-11] MEDS: Acetaminophen 325 MG Tab PO SCH ×3 (06:06→21:08)
[2023-04-11] MEDS: Furosemide 40 MG Tab PO SCH (08:46)
[2023-04-11] MEDS: Metoprolol Tartrate 100 MG Tab PO SCH (08:47)
[2023-04-11] MEDS: amLODIPine 5 MG Tab PO SCH (08:51)
[2023-04-11] MEDS: metFORMIN 500 MG Tab PO SCH ×2 (08:51→21:01)
[2023-04-11] MEDS: Tamsulosin 0.4 MG Cap.ER PO SCH (08:51)
[2023-04-11] MEDS: Cholecalciferol (Vitamin D3) 25 MCG Tab PO SCH (08:51)
[2023-04-11] MEDS: Colchicine 0.6 MG Tab PO SCH (08:51)
[2023-04-11] MEDS: atorvaSTATin 40 MG Tab PO SCH (08:51)
[2023-04-11] MEDS: Pantoprazole 40 MG Tab.CR PO SCH (08:51)
[2023-04-11] MEDS: Gabapentin 300 MG Cap PO SCH ×2 (08:51→21:00)
[2023-04-11] MEDS: glipiZIDE 5 MG Tab.ER PO SCH ×2 (08:51→21:02)
[2023-04-11] MEDS: Topiramate 100 MG Tab PO SCH ×2 (08:52→21:01)
[2023-04-11] MEDS: QUEtiapine 100 MG Tab PO SCH (20:58)
[2023-04-12] MEDS: Acetaminophen 325 MG Tab PO SCH ×4 (06:58→21:06)
[2023-04-12] MEDS: Heparin Sodium 5,000 Units/ML Vial SUBCUT SCH ×3 (06:58→21:03)
[2023-04-12] MEDS: Topiramate 100 MG Tab PO SCH ×2 (10:06→21:05)
[2023-04-12] MEDS: Colchicine 0.6 MG Tab PO SCH (10:07)
[2023-04-12] MEDS: Gabapentin 300 MG Cap PO SCH ×2 (10:07→21:06)
[2023-04-12] MEDS: amLODIPine 5 MG Tab PO SCH (10:07)
[2023-04-12] MEDS: metFORMIN 500 MG Tab PO SCH ×2 (10:08→21:08)
[2023-04-12] MEDS: Cholecalciferol (Vitamin D3) 25 MCG Tab PO SCH (10:08)
[2023-04-12] MEDS: Metoprolol Tartrate 100 MG Tab PO SCH (10:08)
[2023-04-12] MEDS: atorvaSTATin 40 MG Tab PO SCH (10:08)
[2023-04-12] MEDS: Tamsulosin 0.4 MG Cap.ER PO SCH (10:08)
[2023-04-12] MEDS: Furosemide 40 MG Tab PO SCH (10:08)
[2023-04-12] MEDS: Pantoprazole 40 MG Tab.CR PO SCH (10:08)
[2023-04-12] MEDS: glipiZIDE 5 MG Tab.ER PO SCH ×2 (10:09→21:08)
[2023-04-12] MEDS: QUEtiapine 100 MG Tab PO SCH (21:05)
[2023-04-13] MEDS: Acetaminophen 325 MG Tab PO SCH ×3 (06:30→21:20)
[2023-04-13] MEDS: Heparin Sodium 5,000 Units/ML Vial SUBCUT SCH ×3 (06:31→21:18)
[2023-04-13] MEDS: Topiramate 100 MG Tab PO SCH ×2 (08:42→21:20)
[2023-04-13] MEDS: amLODIPine 5 MG Tab PO SCH (08:42)
[2023-04-13] MEDS: glipiZIDE 5 MG Tab.ER PO SCH ×2 (08:42→21:20)
[2023-04-13] MEDS: Tamsulosin 0.4 MG Cap.ER PO SCH (08:42)
[2023-04-13] MEDS: Cholecalciferol (Vitamin D3) 25 MCG Tab PO SCH (08:42)
[2023-04-13] MEDS: Colchicine 0.6 MG Tab PO SCH (08:42)
[2023-04-13] MEDS: Gabapentin 300 MG Cap PO SCH ×2 (08:42→21:19)
[2023-04-13] MEDS: Metoprolol Tartrate 100 MG Tab PO SCH (08:43)
[2023-04-13] MEDS: Furosemide 40 MG Tab PO SCH (08:44)
[2023-04-13] MEDS: atorvaSTATin 40 MG Tab PO SCH (08:44)
[2023-04-13] MEDS: Pantoprazole 40 MG Tab.CR PO SCH (08:44)
[2023-04-13] MEDS: metFORMIN 500 MG Tab PO SCH ×2 (08:44→21:20)
[2023-04-13] MEDS: QUEtiapine 100 MG Tab PO SCH (21:18)
[2023-04-14] MEDS: Acetaminophen 325 MG Tab PO SCH (05:38)
[2023-04-14] MEDS: Heparin Sodium 5,000 Units/ML Vial SUBCUT SCH (05:38)
[2023-04-14] MEDS: Topiramate 100 MG Tab PO SCH (08:01)
[2023-04-14] MEDS: Furosemide 40 MG Tab PO SCH (08:02)
[2023-04-14] MEDS: Colchicine 0.6 MG Tab PO SCH (08:02)
[2023-04-14] MEDS: atorvaSTATin 40 MG Tab PO SCH (08:02)
[2023-04-14] MEDS: Gabapentin 300 MG Cap PO SCH (08:02)
[2023-04-14] MEDS: glipiZIDE 5 MG Tab.ER PO SCH (08:02)
[2023-04-14] MEDS: amLODIPine 5 MG Tab PO SCH (08:02)
[2023-04-14] MEDS: metFORMIN 500 MG Tab PO SCH (08:03)
[2023-04-14] MEDS: Tamsulosin 0.4 MG Cap.ER PO SCH (08:03)
[2023-04-14] MEDS: Pantoprazole 40 MG Tab.CR PO SCH (08:03)
[2023-04-14] MEDS: Metoprolol Tartrate 100 MG Tab PO SCH (08:03)
[2023-04-14] MEDS: Cholecalciferol (Vitamin D3) 25 MCG Tab PO SCH (08:03)
== END 2023-04-14 08:10 | DRG 885 ==
LOC: JD.ED 11:12 → JD.MS 11-24 07:37
PROVIDERS: ADMIT Internal Medicine Critical Care Medicine; ATTEND Internal Medicine
DX: F20.1 Disorganized schizophrenia (principal); F20.9 Schizophrenia, unspecified; I13.0 Hypertensive heart and chronic kidney disease with heart failure and stage 1 through stage 4 chronic kidney disease, or unspecified chronic kidney disease; I50.32 Chronic diastolic (congestive) heart failure; I12.9 Hypertensive chronic kidney disease with stage 1 through stage 4 chronic kidney disease, or unspecified chronic kidney disease; E11.22 Type 2 diabetes mellitus with diabetic chronic kidney disease; N18.31 Chronic kidney disease, stage 3a; E78.5 Hyperlipidemia, unspecified; I25.10 Atherosclerotic heart disease of native coronary artery without angina pectoris; E78.00 Pure hypercholesterolemia, unspecified; E11.51 Type 2 diabetes mellitus with diabetic peripheral angiopathy without gangrene; K21.9 Gastro-esophageal reflux disease without esophagitis; Z79.82 Long term (current) use of aspirin; N40.0 Benign prostatic hyperplasia without lower urinary tract symptoms; E11.40 Type 2 diabetes mellitus with diabetic neuropathy, unspecified; Z95.5 Presence of coronary angioplasty implant and graft; Z20.822 Contact with and (suspected) exposure to COVID-19; F90.9 Attention-deficit hyperactivity disorder, unspecified type; F41.9 Anxiety disorder, unspecified; I34.0 Nonrheumatic mitral (valve) insufficiency; N18.32 Chronic kidney disease, stage 3b; M15.9 Polyosteoarthritis, unspecified; M54.50 Low back pain, unspecified; G89.29 Other chronic pain; K59.00 Constipation, unspecified; M10.9 Gout, unspecified; R07.9 Chest pain, unspecified; I87.2 Venous insufficiency (chronic) (peripheral); E11.65 Type 2 diabetes mellitus with hyperglycemia; E87.6 Hypokalemia; R62.7 Adult failure to thrive; F03.90 Unspecified dementia, unspecified severity, without behavioral disturbance, psychotic disturbance, mood disturbance, and anxiety; F31.10 Bipolar disorder, current episode manic without psychotic features, unspecified; Z79.84 Long term (current) use of oral hypoglycemic drugs; Z98.890 Other specified postprocedural states; Z88.5 Allergy status to narcotic agent; Z88.8 Allergy status to other drugs, medicaments and biological substances; Z91.040 Latex allergy status; Z91.148 Patient's other noncompliance with medication regimen for other reason; Z79.899 Other long term (current) drug therapy; Z87.442 Personal history of urinary calculi; Z59.00 Homelessness unspecified; Z85.46 Personal history of malignant neoplasm of prostate; Z87.820 Personal history of traumatic brain injury; I25.2 Old myocardial infarction; Z68.28 Body mass index [BMI] 28.0-28.9, adult
CPT/HCPCS: 0241U; 36415; 80048; 80053; 80143; 80179; 80306; 80307; 81001; 81003; 82947; 83735; 84443; 84484; 84550; 85025; 85027; 86140; 87086; 92523; 93005; 97110; 97116; 97162; 97530; 99285; 90792; 93010; 99223; 99231; 99232; 99239; 99284; A9270-GY; J1644; J1815-GY; Q3014